=== PATIENT | male | born 1940 | race Caucasian/White ===

== ENCOUNTER 2017-11-07 15:13 | Emergency (ER) | payer MEDICARE ==
[2017-11-07 15:21] VITALS: BP 104/73; PULSE 80; RESP 18; TEMP 96.9
--- NOTE | 2017-11-07 15:39 | ED ---
General Adult HPI - General Chief complaint: Extremity Injury, Lower Stated complaint: Torn toe nail Time Seen by Provider: 11/07/17 15:31 Source: patient, RN notes reviewed Mode of arrival: ambulatory Limitations: no limitations - History of Present Illness Initial comments: Patient's a 76-year-old who presents emergency room today with chief complaint of injury to the right great toe. Patient does admit that he did have psych son was moving a piece of furniture accidentally caught the toe repeated from the nailbed on the medial corner. Patient denies any other pain or injury. He denies any other complaints. States he has very minimal to no pain to the area. - Related Data Home Medications Medication Instructions Recorded Confirmed Diltiazem Cd [Cardizem Cd] 180 mg PO DAILY 05/31/16 05/31/16 Furosemide [Lasix] 20 mg PO WEEKLY 05/31/16 05/31/16 Latanoprost Ophth [Xalatan 0.005%] 1 drops BOTH EYES HS 05/31/16 05/31/16 Spironolactone [Aldactone] 25 mg PO DAILY 05/31/16 05/31/16 Timolol 0.25% Ophth Soln [Timoptic 1 drop BOTH EYES BID 05/31/16 05/31/16 0.25% Ophth Soln] Warfarin Sodium [Coumadin] 5 mg PO DAILY 05/31/16 05/31/16 Warfarin [Coumadin] 2.5 mg PO DAILY 05/31/16 05/31/16 Allergies Allergy/AdvReac Type Severity Reaction Status Date / Time Penicillins Allergy Unknown Verified 11/07/17 15:21 Review of Systems ROS Statement: Those systems with pertinent positive or pertinent negative responses have been documented in the HPI. ROS Other: All systems not noted in ROS Statement are negative. Past Medical History Past Medical History: Atrial Fibrillation History of Any Multi-Drug Resistant Organisms: None Reported Past Surgical History: Hernia Repair Past Psychological History: No Psychological Hx Reported Smoking Status: Never smoker Past Alcohol Use History: None Reported Past Drug Use History: None Reported General Exam - General Exam Comments Initial Comments: General: The patient is awake and alert, in no distress, and does not appear acutely ill. Neck: The neck is supple, there is no tenderness or JVD. Cardiovascular: There is a regular rate and rhythm. No murmur, rub or gallop is appreciated. Respiratory: Lungs are clear to auscultation, respirations are non-labored, breath sounds are equal. No wheezes, stridor, rales, or rhonchi. Musculoskeletal: Full range motion. Sensation intact with pulses equal bilaterally 2+. Strength 5/5. Neurological: A&O x 3. CN II-XII intact, There are no obvious motor or sensory deficits. Coordination appears grossly intact. Speech is normal. Skin: She is referred toe does have nail avulsion on the medial aspect. There is no active bleeding. No tenderness. Psychiatric: Normal mood and affect. Limitations: no limitations Course Vital Signs 11/07/17 15:16 Temperature 96.9 F L Pulse Rate 80 Respiratory 18 Rate Blood Pressure 104/73 O2 Sat by Pulse 97 Oximetry Procedures - Procedures Initial comment: Vision did have his right foot soaked and a soapy foot bath for approximately 15 minutes. Area was cleaned. The toenail medial aspect was pushed underneath into the nailbed. And a bandage placed over top. Patient advised that toenail is likely to fall off over the next week. Advised to watch for any signs of infection return here to the emergency room for any other concerns. Disposition Clinical Impression: Nail avulsion, toe Disposition: HOME SELF-CARE Condition: Good Instructions: Nail Avulsion (ED) Additional Instructions: Please use bandage to keep naill in place when you are putting socks and shoes on. Please beware nail most likely will fall off over the next week. Please watch for any signs of infection which may include increased pain, swelling, redness, fever or chills. Please return to emergency room for any signs of infection or any other concerns. Referrals: Coty Rose MD [Primary Care Provider] - 1-2 days Time of Disposition: 16:11
== END 2017-11-07 16:22 | disposition home or self-care (01) ==
LOC: EC 15:13
DX: S91.201A Unspecified open wound of right great toe with damage to nail, initial encounter (principal); I48.91 Unspecified atrial fibrillation; Z79.01 Long term (current) use of anticoagulants; Z79.899 Other long term (current) drug therapy; Z88.0 Allergy status to penicillin; W22.8XXA Striking against or struck by other objects, initial encounter; Y92.009 Unspecified place in unspecified non-institutional (private) residence as the place of occurrence of the external cause
CPT/HCPCS: 11730; 99283

== ENCOUNTER 2021-05-03 12:18 | Emergency (ER) | payer MEDICARE ==
[2021-05-03 12:22] VITALS: TEMP 97.8
[2021-05-03] MEDS ORDERED: methylPREDNISolone SOD SUCCI 125 MG/2 ML VIAL IV STA (12:50)
[2021-05-03] MEDS ORDERED: IPRATROPIUM-ALBUTEROL 3 ML NEB INHALATION STA (12:50)
--- NOTE | 2021-05-03 12:57 | ED ---
General Adult HPI - General Chief complaint: Shortness of Breath Stated complaint: Cough/SOB Time Seen by Provider: 05/03/21 12:30 Source: patient, RN notes reviewed Mode of arrival: ambulatory Limitations: no limitations - History of Present Illness Initial comments: Patient is a pleasant 80-year-old male presenting to the emergency Department with cough. Onset of symptoms was yesterday. Patient does occasionally get bronchitis. No fevers. No chest pain. Patient does have history of atrial fibrillation. Patient states there is mild associated dyspnea. provides majority of history otherwise. They state mild leg swelling is chronic. P atient denies calf pain. - Related Data Home Medications Medication Instructions Recorded Confirmed Diltiazem Cd [Cardizem Cd] 180 mg PO DAILY 05/31/16 11/07/17 Furosemide [Lasix] 20 mg PO WEEKLY 05/31/16 11/07/17 Latanoprost Ophth [Xalatan 0.005%] 1 drops BOTH EYES HS 05/31/16 11/07/17 Spironolactone [Aldactone] 25 mg PO DAILY 05/31/16 11/07/17 Timolol 0.25% Ophth Soln [Timoptic 1 drop BOTH EYES BID 05/31/16 11/07/17 0.25% Ophth Soln] Warfarin Sodium [Coumadin] 5 mg PO DAILY 05/31/16 11/07/17 Warfarin [Coumadin] 2.5 mg PO DAILY 05/31/16 11/07/17 Previous Rx's Medication Instructions Recorded Albuterol Nebulized [Ventolin 2.5 mg INHALATION QID PRN #125 nebu 05/03/21 Nebulized] predniSONE [Deltasone] 20 mg PO BID #10 tab 05/03/21 Allergies Allergy/AdvReac Type Severity Reaction Status Date / Time levofloxacin [From Levaquin] Allergy Swelling Verified 05/03/21 12:22 Penicillins Allergy Unknown Verified 11/07/17 15:21 Review of Systems ROS Statement: Those systems with pertinent positive or pertinent negative responses have been documented in the HPI. ROS Other: All systems not noted in ROS Statement are negative. Constitutional: Denies: fever Eyes: Denies: eye pain ENT: Denies: ear pain Respiratory: Reports: as per HPI, cough Cardiovascular: Denies: chest pain Endocrine: Denies: fatigue Gastrointestinal: Denies: abdominal pain Genitourinary: Denies: dysuria Musculoskeletal: Denies: back pain Skin: Denies: rash Neurological: Denies: weakness Past Medical History Past Medical History: Atrial Fibrillation, Memory Impairment History of Any Multi-Drug Resistant Organisms: None Reported Past Surgical History: Hernia Repair Past Psychological History: No Psychological Hx Reported Smoking Status: Never smoker Past Alcohol Use History: None Reported Past Drug Use History: None Reported General Exam Limitations: no limitations General appearance: alert, in no apparent distress Head exam: Present: normocephalic Eye exam: Present: normal appearance Neck exam: Present: normal inspection Respiratory exam: Present: wheezes Cardiovascular Exam: Present: irregular rhythm GI/Abdominal exam: Present: soft. Absent: tenderness Extremities exam: Present: pedal edema (+1 bilateral). Absent: calf tenderness Neurological exam: Present: alert Psychiatric exam: Present: normal affect, normal mood Skin exam: Present: normal color Course Vital Signs 05/03/21 05/03/21 05/03/21 12:19 13:50 14:07 Temperature 97.8 F Pulse Rate 91 93 94 Respiratory 20 18 Rate Blood Pressure 125/80 121/89 O2 Sat by Pulse 95 93 L Oximetry 05/03/21 14:17 Temperature Pulse Rate 107 H Respiratory Rate Blood Pressure O2 Sat by Pulse Oximetry EKG Findings - EKG Comments: EKG Findings:: A. fib with a rate of 98. QRS 88. QT 384. QTC 490. Left axis. Normal QRS. Nonspecific ST-T. Medical Decision Making - Medical Decision Making Patient reevaluated and resting comfortably in bed. Lung sounds have improved however there is still minimal wheezing. Patient and family updated on results. Patient states he is feeling better and does request discharge home. They're advised close follow-up and to return if symptoms worsen - Lab Data Result diagrams: 05/03/21 13:45 05/03/21 13:45 Lab Results 05/03/21 05/03/21 05/03/21 Range/Units 13:05 13:45 13:45 WBC 14.7 H (3.8-10.6) k/uL RBC 5.35 (4.30-5.90) m/uL Hgb 17.5 (13.0-17.5) gm/dL Hct 50.9 (39.0-53.0) % MCV 95.0 (80.0-100.0) fL MCH 32.7 (25.0-35.0) pg MCHC 34.4 (31.0-37.0) g/dL RDW 13.0 (11.5-15.5) % Plt Count 156 (150-450) k/uL MPV 7.9 Neutrophils % 86 % Lymphocytes % 8 % Monocytes % 4 % Eosinophils % 1 % Basophils % 1 % Neutrophils # 12.6 H (1.3-7.7) k/uL Lymphocytes # 1.2 (1.0-4.8) k/uL Monocytes # 0.6 (0-1.0) k/uL Eosinophils # 0.2 (0-0.7) k/uL Basophils # 0.1 (0-0.2) k/uL PT 34.7 H (9.0-12.0) sec INR 3.6 H (<1.2) APTT 37.4 H (22.0-30.0) sec D-Dimer (<0.60) mg/L FEU Sodium (137-145) mmol/L Potassium (3.5-5.1) mmol/L Chloride (98-107) mmol/L Carbon Dioxide (22-30) mmol/L Anion Gap mmol/L BUN (9-20) mg/dL Creatinine (0.66-1.25) mg/dL Est GFR (CKD-EPI)AfAm (>60 ml/min/1.73 sqM) Est GFR (CKD-EPI)NonAf (>60 ml/min/1.73 sqM) Glucose (74-99) mg/dL Plasma Lactic Acid Hernan (0.7-2.0) mmol/L Calcium (8.4-10.2) mg/dL Total Bilirubin (0.2-1.3) mg/dL AST (17-59) U/L ALT (4-49) U/L Alkaline Phosphatase (38-126) U/L Troponin I (0.000-0.034) ng/mL NT-Pro-B Natriuret Pep pg/mL Total Protein (6.3-8.2) g/dL Albumin (3.5-5.0) g/dL Coronavirus (PCR) Not Detected (Not Detectd) 05/03/21 05/03/21 05/03/21 Range/Units 13:45 13:45 13:45 WBC (3.8-10.6) k/uL RBC (4.30-5.90) m/uL Hgb (13.0-17.5) gm/dL Hct (39.0-53.0) % MCV (80.0-100.0) fL MCH (25.0-35.0) pg MCHC (31.0-37.0) g/dL RDW (11.5-15.5) % Plt Count (150-450) k/uL MPV Neutrophils % % Lymphocytes % % Monocytes % % Eosinophils % % Basophils % % Neutrophils # (1.3-7.7) k/uL Lymphocytes # (1.0-4.8) k/uL Monocytes # (0-1.0) k/uL Eosinophils # (0-0.7) k/uL Basophils # (0-0.2) k/uL PT (9.0-12.0) sec INR (<1.2) APTT (22.0-30.0) sec D-Dimer (<0.60) mg/L FEU Sodium 140 (137-145) mmol/L Potassium 4.2 (3.5-5.1) mmol/L Chloride 106 (98-107) mmol/L Carbon Dioxide 23 (22-30) mmol/L Anion Gap 11 mmol/L BUN 13 (9-20) mg/dL Creatinine 0.84 (0.66-1.25) mg/dL Est GFR (CKD-EPI)AfAm >90 (>60 ml/min/1.73 sqM) Est GFR (CKD-EPI)NonAf 84 (>60 ml/min/1.73 sqM) Glucose 115 H (74-99) mg/dL Plasma Lactic Acid Hernan 2.3 H* (0.7-2.0) mmol/L Calcium 9.2 (8.4-10.2) mg/dL Total Bilirubin 1.3 (0.2-1.3) mg/dL AST 44 (17-59) U/L ALT 28 (4-49) U/L Alkaline Phosphatase 114 (38-126) U/L Troponin I <0.012 (0.000-0.034) ng/mL NT-Pro-B Natriuret Pep pg/mL Total Protein 7.3 (6.3-8.2) g/dL Albumin 4.5 (3.5-5.0) g/dL Coronavirus (PCR) (Not Detectd) 05/03/21 05/03/21 Range/Units 13:45 13:45 WBC (3.8-10.6) k/uL RBC (4.30-5.90) m/uL Hgb (13.0-17.5) gm/dL Hct (39.0-53.0) % MCV (80.0-100.0) fL MCH (25.0-35.0) pg MCHC (31.0-37.0) g/dL RDW (11.5-15.5) % Plt Count (150-450) k/uL MPV Neutrophils % % Lymphocytes % % Monocytes % % Eosinophils % % Basophils % % Neutrophils # (1.3-7.7) k/uL Lymphocytes # (1.0-4.8) k/uL Monocytes # (0-1.0) k/uL Eosinophils # (0-0.7) k/uL Basophils # (0-0.2) k/uL PT (9.0-12.0) sec INR (<1.2) APTT (22.0-30.0) sec D-Dimer 0.22 (<0.60) mg/L FEU Sodium (137-145) mmol/L Potassium (3.5-5.1) mmol/L Chloride (98-107) mmol/L Carbon Dioxide (22-30) mmol/L Anion Gap mmol/L BUN (9-20) mg/dL Creatinine (0.66-1.25) mg/dL Est GFR (CKD-EPI)AfAm (>60 ml/min/1.73 sqM) Est GFR (CKD-EPI)NonAf (>60 ml/min/1.73 sqM) Glucose (74-99) mg/dL Plasma Lactic Acid Hernan (0.7-2.0) mmol/L Calcium (8.4-10.2) mg/dL Total Bilirubin (0.2-1.3) mg/dL AST (17-59) U/L ALT (4-49) U/L Alkaline Phosphatase (38-126) U/L Troponin I (0.000-0.034) ng/mL NT-Pro-B Natriuret Pep 418 pg/mL Total Protein (6.3-8.2) g/dL Albumin (3.5-5.0) g/dL Coronavirus (PCR) (Not Detectd) - Radiology Data Radiology results: image reviewed (Chest x-ray reveals no acute process) Disposition Clinical Impression: Bronchitis Disposition: HOME SELF-CARE Condition: Stable Instructions (If sedation given, give patient instructions): Bronchospasm (ED) Additional Instructions: Prescription for nebulizer solution and steroids have been sent to pharmacy. Return for fevers, difficulty breathing, worsening symptoms or other concerns. Prescriptions: predniSONE [Deltasone] 20 mg PO BID #10 tab Albuterol Nebulized [Ventolin Nebulized] 2.5 mg INHALATION QID PRN #125 nebu PRN Reason: Dyspnea Is patient prescribed a controlled substance at d/c from ED?: No Referrals: Coty Rose MD [Primary Care Provider] - 1-2 days Time of Disposition: 14:48
--- NOTE | 2021-05-03 13:25 | XR ---
EXAMINATION TYPE: XR chest 2V DATE OF EXAM: 05/03/2021 COMPARISON: NONE HISTORY: Cough. Short of breath. TECHNIQUE: 2 views FINDINGS: There is no heart failure nor confluent pneumonic infiltrate. There is slight coarsening of interstitial markings. There are no hilar masses. Bony thorax is intact. There are chest leads. IMPRESSION: Mild pulmonary fibrosis. No heart failure.
[2021-05-03 13:51] VITALS: RESP 18
[2021-05-03 13:59] LABS: Basophils # (A) 0.1 k/uL (0-0.2); Basophils % (A) 1 %; Eosinophils # (A) 0.2 k/uL (0-0.7); Eosinophils % (A) 1 %; HCT 50.9 % (39.0-53.0); HGB 17.5 gm/dL (13.0-17.5); Lymphocytes # (A) 1.2 k/uL (1.0-4.8); Lymphocytes % (A) 8 %; MCH 32.7 pg (25.0-35.0); MCHC 34.4 g/dL (31.0-37.0); Mean Platelet Volume 7.9; Monocytes # (A) 0.6 k/uL (0-1.0); Monocytes % (A) 4 %; Neutrophils # (A) 12.6 k/uL (1.3-7.7); Neutrophils % (A) 86 %; Platelet Count 156 k/uL (150-450); RBC 5.35 m/uL (4.30-5.90); WBC 14.7 k/uL (3.8-10.6)
[2021-05-03 14:08] LABS: ALT 28 U/L (4-49); African American GFR (CKD) >90 (>60 ml/min/1.73 sqM); Albumin 4.5 g/dL (3.5-5.0); Anion Gap 11 mmol/L; Blood Urea Nitrogen 13 mg/dL (9-20); Calcium 9.2 mg/dL (8.4-10.2); Carbon Dioxide 23 mmol/L (22-30); Chloride 106 mmol/L (98-107); Glucose 115 mg/dL (74-99); Non-African American GFR(CKD) 84 (>60 ml/min/1.73 sqM); Sodium 140 mmol/L (137-145); Total Bilirubin 1.3 mg/dL (0.2-1.3); Total Protein 7.3 g/dL (6.3-8.2)
[2021-05-03 14:15] LABS: INR 3.6 (<1.2); Partial Thromboplastin Time 37.4 sec (22.0-30.0); Prothrombin Time 34.7 sec (9.0-12.0)
[2021-05-03 14:19] LABS: AST 44 U/L (17-59); Alkaline Phosphatase 114 U/L (38-126); Potassium 4.2 mmol/L (3.5-5.1)
[2021-05-03 15:23] VITALS: BP 121/80; PULSE 98
== END 2021-05-03 15:40 | disposition home or self-care (01) ==
LOC: EC 12:18
DX: J40 Bronchitis, not specified as acute or chronic (principal); M79.89 Other specified soft tissue disorders; I48.91 Unspecified atrial fibrillation; Z20.822 Contact with and (suspected) exposure to COVID-19; Z79.01 Long term (current) use of anticoagulants; Z79.52 Long term (current) use of systemic steroids; Z79.899 Other long term (current) drug therapy; Z88.0 Allergy status to penicillin; Z88.1 Allergy status to other antibiotic agents
CPT/HCPCS: 36415; 94640; 93005; 85379; 83880; 80053; 83605; 84484; 85025; 85610; 85730; 87635; 71046; 99285; 96374; J2930

== ENCOUNTER 2023-08-14 23:49 | Inpatient (IN) | payer MEDICARE ==
[2023-08-15] MEDS ORDERED: ACETAMINOPHEN IV (For NPO) 1,000 MG in EMPTY BAG 1 BAG IVPB STA (00:19)
[2023-08-15] MEDS ORDERED: IBUPROFEN IV 800 MG in SODIUM CHLORIDE 0.9% 250 ML IV ONE (00:19)
[2023-08-15] MEDS ORDERED: SODIUM CHLORIDE 0.9% 1,000 ML IV STA (00:19)
[2023-08-15 00:20] LABS: Glucose,Whole Blood 90 mg/dL (70-110)
[2023-08-15] MEDS ORDERED: LORazepam 2 MG/ML INJ IV STA ×2 (00:21→01:17)
--- NOTE | 2023-08-15 01:12 | ED ---
Altered Mental Status HPI - General Chief Complaint: Altered Mental Status Stated Complaint: Fall Time Seen by Provider: 08/15/23 00:17 Source: family, RN notes reviewed, old records reviewed Mode of arrival: wheelchair Limitations: no limitations - History of Present Illness Initial Comments: This is an 82-year-old male to the emergency department for evaluation. Patient presents with his who states he's not acting appropriately currently states he keeps taking shaky difficult to respond episodes. Which she had similar symptoms before when he had coronavirus in the past. Patient's also states that she checked his urine for urinary tract infection was positive earlier today MD Complaint: confusion, weakness -: hour(s) Severity: moderate Consistency of Symptoms: waxing and waning, getting worse Context: history of similar presentation Associated Symptoms: diaphoresis, fever/chills, weakness - Related Data Home Medications Medication Instructions Recorded Confirmed Furosemide [Lasix] 20 mg PO MOTH 05/31/16 08/15/23 Diltiazem Cd [Cardizem CD] 240 mg PO DAILY 12/13/22 08/15/23 Aspirin EC [Ecotrin Low Dose] 81 mg PO DAILY 08/15/23 08/15/23 Cholecalciferol [Vitamin D3 (25 50 mcg PO DAILY 08/15/23 08/15/23 Mcg = 1000 Iu)] Memantine [Namenda] 5 mg PO DAILY 08/15/23 08/15/23 Rosuvastatin Calcium 40 mg PO DAILY 08/15/23 08/15/23 Previous Rx's Medication Instructions Recorded Albuterol Inhaler [Ventolin Hfa 2 puff INHALATION RT-QID PRN #1 12/17/22 Inhaler] each Ascorbic Acid [Vitamin C] 500 mg PO DAILY #30 tab 12/17/22 Cephalexin [Keflex] 500 mg PO Q8HR 1 Days #7 cap 08/20/23 Pantoprazole Sodium [Protonix] 40 mg PO AC-BRKFST 30 Days #30 tab 08/20/23 Warfarin [Coumadin] 2.5 mg PO DAILY 30 Days #30 tab 08/20/23 levETIRAcetam [Keppra] 500 mg PO Q12HR 30 Days #60 tab 08/20/23 Allergies Allergy/AdvReac Type Severity Reaction Status Date / Time levofloxacin [From Levaquin] Allergy Leg Verified 08/15/23 12:05 Swelling Penicillins Allergy Unknown Verified 08/15/23 12:05 Review of Systems ROS Statement: Those systems with pertinent positive or pertinent negative responses have been documented in the HPI. ROS Other: All systems not noted in ROS Statement are negative. Past Medical History Past Medical History: Atrial Fibrillation, Memory Impairment History of Any Multi-Drug Resistant Organisms: None Reported Past Surgical History: Hernia Repair Past Anesthesia/Blood Transfusion Reactions: No Reported Reaction Past Psychological History: No Psychological Hx Reported Smoking Status: Never smoker Past Alcohol Use History: None Reported Past Drug Use History: None Reported General Exam Limitations: no limitations General appearance: alert, in no apparent distress, anxious Head exam: Present: atraumatic, normocephalic, normal inspection Eye exam: Present: normal appearance, PERRL, EOMI. Absent: scleral icterus, conjunctival injection, periorbital swelling ENT exam: Present: normal exam, mucous membranes moist Neck exam: Present: normal inspection. Absent: tenderness, meningismus, lymphadenopathy Respiratory exam: Present: normal lung sounds bilaterally. Absent: respiratory distress, wheezes, rales, rhonchi, stridor Cardiovascular Exam: Present: tachycardia, irregular rhythm, normal heart sounds. Absent: normal rhythm, systolic murmur, diastolic murmur, rubs, gallop, clicks GI/Abdominal exam: Present: soft, normal bowel sounds. Absent: distended, tenderness, guarding, rebound, rigid Extremities exam: Present: normal inspection, full ROM, normal capillary refill. Absent: tenderness, pedal edema, joint swelling, calf tenderness Back exam: Present: normal inspection Neurological exam: Present: alert, oriented X3, CN II-XII intact Psychiatric exam: Present: normal affect, normal mood, agitated, anxious Skin exam: Present: warm, dry, intact, normal color. Absent: rash Course Vital Signs 08/15/23 08/15/23 08/15/23 00:03 00:33 00:56 Temperature 97.8 F Pulse Rate 144 H 146 H 109 H Respiratory 22 22 22 Rate Blood Pressure 115/68 107/80 112/77 O2 Sat by Pulse 98 93 L 93 L Oximetry 08/15/23 08/15/23 01:26 03:48 Temperature Pulse Rate 106 H 94 Respiratory 24 20 Rate Blood Pressure 104/79 110/74 O2 Sat by Pulse 95 96 Oximetry - Reevaluation(s) Reevaluation #1: 08/15/23 04:08 Medical record is reviewed Reevaluation #2: 08/15/23 04:09 Patient symptoms are improving heart rate is improving still having episodes of tremors and shakes Reevaluation #3: 08/15/23 04:09 Patient informed results questions answered at bedside prefers patient admission Reevaluation #4: 08/15/23 04:09 Was pt. sent in by a medical professional or institution ([facility], [facility], urgent care, hospital, or jail...) When possible be specific @ -no Did you speak to anyone other than the patient for history (EMS, parent, family, police, friend...)? What history was obtained from this source @ -no Did you review nursing and triage notes (agree or disagree)? Why? @ -agree Are old charts reviewed (outside hosp., previous admission, EMS record, old EKG, old radiological studies, urgent care reports/EKG's, jail records)? Report findings @ -yes Differential Diagnosis (chest pain, altered mental status, abdominal pain women, abdominal pain men, vaginal bleeding, weakness, fever, dyspnea, syncope, headache, dizziness, GI bleed, back pain, seizure, CVA, palpatations, mental health, musculoskeletal)? @ -prior EKG interpreted by me (3pts min.). @ -yes X-rays interpreted by me (1pt min.). @ -yes CT interpreted by me (1pt min.). @ -no U/S interpreted by me (1pt. min.). @ -no What testing was considered but not performed or refused? (CT, X-rays, U/S, labs)? Why? @ -none What meds were considered but not given or refused? Why? @ -none Did you discuss the management of the patient with other professionals (professionals i.e. [facility], [facility], lab, RT, psych nurse, clinical social worker, arch pad cementer, teacher, interface control officer, home health care case manager)? Give summary @ -no Was smoking cessation discussed for >3mins.? @ -no Was critical care preformed (if so, how long)? @ -no Were there social determinants of health that impacted care today? How? (Ho melessness, low income, unemployed, alcoholism, drug addiction, transportation, low edu. Level, literacy, decrease access to med. care, usp, rehab)? @ -none Was there de-escalation of care discussed even if they declined (Discuss DNR or withdrawal of care, Hospice)? DNR status @ -no What co-morbidities impacted this encounter? (DM, HTN, Smoking, COPD, CAD, Cancer, CVA, ARF, Chemo, Hep., AIDS, mental health diagnosis, sleep apnea, morbid obesity)? @ -none Was patient admitted / discharged? Hospital course, mention meds given and route, prescriptions, significant lab abnormalities, going to OR and other pertinent info. @ - 82-year-old male to the emergency department for evaluation today. Patient presents today for evaluation of altered mental status fever possible urinary tract infection which we will treat, patient is also having CHF and atrial fibrillation with RVR and episodes of tremor. Patient will be admitted for continued supportive care Admitted Undiagnosed new problem with uncertain prognosis? @ -no Drug Therapy requiring intensive monitoring for toxicity (Heparin, Nitro, Insulin, Cardizem)? @ -no Were any procedures done? @ -no Diagnosis/symptom? @ -Fever A. fib with RVR and CHF Acute, or Chronic, or Acute on Chronic? @ -Acute Uncomplicated (without systemic symptoms) or Complicated (systemic symptoms)? @ -Complicated Side effects of treatment? @ -no Exacerbation, Progression, or Severe Exacerbation? @ -exacerbation Poses a threat to life or bodily function? How? (Chest pain, [place], [place], pneumonia, PE, COPD, DKA, ARF, appy, cholecystitis, CVA, Diverticulitis, Homicidal, Suicidal, threat to staff... and all critical care pts) @ -yes significant disease with UTI CHF A. fib with RVR disease Reevaluation #5: 08/15/23 04:09 Differential Altered Mental Status: Hypoglycemia, DKA, hypercapnia, ETOH, overdose, CO poisoning, trauma, myxedema coma, HTN encephalopathy, infection, encephalitis, psychosis, intercranial hemorrhage, hepatic encephalopathy, meningitis, CVA, this is not meant to be an all-inclusive list - Consultations Consultation #1: Spoke with [facility] to agrees to admit this patient Medical Decision Making - Medical Decision Making 82-year-old male to the emergency department for evaluation today. Patient presents today for evaluation of altered mental status fever possible urinary tract infection which we will treat, patient is also having CHF and atrial fibrillation with RVR and episodes of tremor. Patient will be admitted for continued supportive care - Lab Data Result diagrams: 08/20/23 08:03 08/20/23 08:03 Lab Results 08/15/23 08/15/23 08/15/23 Range/Units 00:16 00:26 00:26 WBC 16.4 H (3.8-10.6) k/uL RBC 5.14 (4.30-5.90) m/uL Hgb 17.1 (13.0-17.5) gm/dL Hct 50.5 (39.0-53.0) % MCV 98.3 (80.0-100.0) fL MCH 33.3 (25.0-35.0) pg MCHC 33.9 (31.0-37.0) g/dL RDW 12.9 (11.5-15.5) % Plt Count 215 (150-450) k/uL MPV 9.7 Neutrophils % 67 % Lymphocytes % 21 % Monocytes % 9 % Eosinophils % 1 % Basophils % 1 % Neutrophils # 11.0 H (1.3-7.7) k/uL Lymphocytes # 3.4 (1.0-4.8) k/uL Monocytes # 1.4 H (0-1.0) k/uL Eosinophils # 0.1 (0-0.7) k/uL Basophils # 0.1 (0-0.2) k/uL PT 20.6 H (9.0-12.0) sec INR 2.1 H (<1.2) APTT 28.4 (22.0-30.0) sec Sodium (137-145) mmol/L Potassium (3.5-5.1) mmol/L Chloride (98-107) mmol/L Carbon Dioxide (22-30) mmol/L Anion Gap mmol/L BUN (9-20) mg/dL Creatinine (0.66-1.25) mg/dL Est GFR (CKD-EPI)AfAm (>60 ml/min/1.73 sqM) Est GFR (CKD-EPI)NonAf (>60 ml/min/1.73 sqM) Glucose (74-99) mg/dL POC Glucose (mg/dL) 90 (70-110) mg/dL POC Glu High Worker ID Hock, Kristian Lactic Ac Sepsis Rflx Plasma Lactic Acid Hernan (0.7-2.0) mmol/L Calcium (8.4-10.2) mg/dL Phosphorus (2.5-4.5) mg/dL Magnesium (1.6-2.3) mg/dL Total Bilirubin (0.2-1.3) mg/dL AST (17-59) U/L ALT (4-49) U/L Alkaline Phosphatase (38-126) U/L Troponin I (0.000-0.034) ng/mL NT-Pro-B Natriuret Pep pg/mL Total Protein (6.3-8.2) g/dL Albumin (3.5-5.0) g/dL Influenza Type A (PCR) (Not Detectd) Influenza Type B (PCR) (Not Detectd) RSV (PCR) (Not Detectd) SARS-CoV-2 (PCR) (Not Detectd) 08/15/23 08/15/23 08/15/23 Range/Units 00:26 00:26 00:26 WBC (3.8-10.6) k/uL RBC (4.30-5.90) m/uL Hgb (13.0-17.5) gm/dL Hct (39.0-53.0) % MCV (80.0-100.0) fL MCH (25.0-35.0) pg MCHC (31.0-37.0) g/dL RDW (11.5-15.5) % Plt Count (150-450) k/uL MPV Neutrophils % % Lymphocytes % % Monocytes % % Eosinophils % % Basophils % % Neutrophils # (1.3-7.7) k/uL Lymphocytes # (1.0-4.8) k/uL Monocytes # (0-1.0) k/uL Eosinophils # (0-0.7) k/uL Basophils # (0-0.2) k/uL PT (9.0-12.0) sec INR (<1.2) APTT (22.0-30.0) sec Sodium 143 (137-145) mmol/L Potassium 4.6 (3.5-5.1) mmol/L Chloride 109 H (98-107) mmol/L Carbon Dioxide 19 L (22-30) mmol/L Anion Gap 15 mmol/L BUN 27 H (9-20) mg/dL Creatinine 1.36 H (0.66-1.25) mg/dL Est GFR (CKD-EPI)AfAm 56 (>60 ml/min/1.73 sqM) Est GFR (CKD-EPI)NonAf 49 (>60 ml/min/1.73 sqM) Glucose 94 (74-99) mg/dL POC Glucose (mg/dL) (70-110) mg/dL POC Glu High Worker ID Lactic Ac Sepsis Rflx Plasma Lactic Acid Hernan 3.2 H* (0.7-2.0) mmol/L Calcium 9.5 (8.4-10.2) mg/dL Phosphorus 4.4 (2.5-4.5) mg/dL Magnesium 1.9 (1.6-2.3) mg/dL Total Bilirubin 1.0 (0.2-1.3) mg/dL AST 38 (17-59) U/L ALT 27 (4-49) U/L Alkaline Phosphatase 102 (38-126) U/L Troponin I <0.012 (0.000-0.034) ng/mL NT-Pro-B Natriuret Pep 979 pg/mL Total Protein 7.0 (6.3-8.2) g/dL Albumin 4.5 (3.5-5.0) g/dL Influenza Type A (PCR) (Not Detectd) Influenza Type B (PCR) (Not Detectd) RSV (PCR) (Not Detectd) SARS-CoV-2 (PCR) (Not Detectd) 08/15/23 08/15/23 Range/Units 00:26 02:03 WBC (3.8-10.6) k/uL RBC (4.30-5.90) m/uL Hgb (13.0-17.5) gm/dL Hct (39.0-53.0) % MCV (80.0-100.0) fL MCH (25.0-35.0) pg MCHC (31.0-37.0) g/dL RDW (11.5-15.5) % Plt Count (150-450) k/uL MPV Neutrophils % % Lymphocytes % % Monocytes % % Eosinophils % % Basophils % % Neutrophils # (1.3-7.7) k/uL Lymphocytes # (1.0-4.8) k/uL Monocytes # (0-1.0) k/uL Eosinophils # (0-0.7) k/uL Basophils # (0-0.2) k/uL PT (9.0-12.0) sec INR (<1.2) APTT (22.0-30.0) sec Sodium (137-145) mmol/L Potassium (3.5-5.1) mmol/L Chloride (98-107) mmol/L Carbon Dioxide (22-30) mmol/L Anion Gap mmol/L BUN (9-20) mg/dL Creatinine (0.66-1.25) mg/dL Est GFR (CKD-EPI)AfAm (>60 ml/min/1.73 sqM) Est GFR (CKD-EPI)NonAf (>60 ml/min/1.73 sqM) Glucose (74-99) mg/dL POC Glucose (mg/dL) (70-110) mg/dL POC Glu High Worker ID Lactic Ac Sepsis Rflx Y Plasma Lactic Acid Hernan (0.7-2.0) mmol/L Calcium (8.4-10.2) mg/dL Phosphorus (2.5-4.5) mg/dL Magnesium (1.6-2.3) mg/dL Total Bilirubin (0.2-1.3) mg/dL AST (17-59) U/L ALT (4-49) U/L Alkaline Phosphatase (38-126) U/L Troponin I (0.000-0.034) ng/mL NT-Pro-B Natriuret Pep pg/mL Total Protein (6.3-8.2) g/dL Albumin (3.5-5.0) g/dL Influenza Type A (PCR) Not Detected (Not Detectd) Influenza Type B (PCR) Not Detected (Not Detectd) RSV (PCR) Not Detected (Not Detectd) SARS-CoV-2 (PCR) Not Detected (Not Detectd) - EKG Data -: EKG Interpreted by Me (EKG shows A. fib with RVR 135 QRS 31 QTC 398) - Radiology Data Radiology results: report reviewed (Chest x-rays negative for acute disease), image reviewed Critical Care Time Critical Care Time: Yes Total Critical Care Time: 31 Disposition Clinical Impression: Delirium due to general medical condition, Altered mental status, UTI (urinary tract infection), Fever, Atrial fibrillation with RVR, Acute metabolic encephalopathy Disposition: ADMITTED IP TO THIS HOSP Condition: Fair Is patient prescribed a controlled substance at d/c from ED?: No Time of Disposition: 04:00
[2023-08-15 01:13] LABS: Basophils # (A) 0.1 k/uL (0-0.2); Basophils % (A) 1 %; Eosinophils # (A) 0.1 k/uL (0-0.7); Eosinophils % (A) 1 %; HCT 50.5 % (39.0-53.0); HGB 17.1 gm/dL (13.0-17.5); Lymphocytes # (A) 3.4 k/uL (1.0-4.8); Lymphocytes % (A) 21 %; MCH 33.3 pg (25.0-35.0); MCHC 33.9 g/dL (31.0-37.0); MCV 98.3 fL (80.0-100.0); Mean Platelet Volume 9.7; Monocytes # (A) 1.4 k/uL (0-1.0); Monocytes % (A) 9 %; Neutrophils % (A) 67 %; Platelet Count 215 k/uL (150-450); RBC 5.14 m/uL (4.30-5.90); RDW 12.9 % (11.5-15.5); WBC 16.4 k/uL (3.8-10.6)
[2023-08-15 01:14] LABS: INR 2.1 (<1.2); Partial Thromboplastin Time 28.4 sec (22.0-30.0); Prothrombin Time 20.6 sec (9.0-12.0)
--- NOTE | 2023-08-15 01:34 | XR ---
EXAMINATION TYPE: XR chest 1V portable DATE OF EXAM: 08/15/2023 12:56 AM CLINICAL INDICATION:Male, 82 years old with history of ams; [facility] COMPARISON: Chest radiographs from 01/13/2023 TECHNIQUE: XR chest 1V portable Frontal view of the chest. FINDINGS: Lungs/Pleura: Low lung volumes are present. There is no evidence of pleural effusion, focal consolida tion, or pneumothorax. Pulmonary vascularity: Pulmonary vascular congestion. Heart/mediastinum: Cardiomediastinal silhouette is enlarged and stable. Musculoskeletal: No acute osseous pathology. IMPRESSION: Cardiomegaly and mild pulmonary vascular congestion. Correlate with BNP for congestive heart failure.
[2023-08-15 02:07] LABS: ALT 27 U/L (4-49); AST 38 U/L (17-59); African American GFR (CKD) 56 (>60 ml/min/1.73 sqM); Albumin 4.5 g/dL (3.5-5.0); Alkaline Phosphatase 102 U/L (38-126); Anion Gap 15 mmol/L; Blood Urea Nitrogen 27 mg/dL (9-20); Calcium 9.5 mg/dL (8.4-10.2); Carbon Dioxide 19 mmol/L (22-30); Chloride 109 mmol/L (98-107); Glucose 94 mg/dL (74-99); Magnesium 1.9 mg/dL (1.6-2.3); Non-African American GFR(CKD) 49 (>60 ml/min/1.73 sqM); Phosphorus 4.4 mg/dL (2.5-4.5); Potassium 4.6 mmol/L (3.5-5.1); Sodium 143 mmol/L (137-145)
[2023-08-15 02:14] LABS: NT-Pro-B-Type Natriuretic Pept 979 pg/mL
[2023-08-15] MEDS ORDERED: ONDANSETRON 4 MG/2 ML VIAL IVP PRN (04:01)
[2023-08-15] MEDS ORDERED: IBUPROFEN 400 MG TAB PO PRN (04:01)
[2023-08-15] MEDS ORDERED: NALOXONE 0.4 MG/ML 1 ML VIAL IV PRN (04:01)
[2023-08-15] MEDS ORDERED: MORPHINE SULFATE 4 MG/ML SYRINGE IV PRN (04:01)
[2023-08-15] MEDS ORDERED: ACETAMINOPHEN TAB 325 MG TAB PO PRN (04:01)
[2023-08-15] MEDS ORDERED: SODIUM CHLORIDE 0.9% 1,000 ML IV SCH (04:15)
--- NOTE | 2023-08-15 08:52 | P.HPIM ---
History of Present Illness H&P Date: 08/15/23 Chief Complaint: Confusion * 82-year-old gentleman with past medical history significant for atrial fibrillation on anticoagulation with Coumadin, memory impairment history of dementia presents to the emergency department with episode of worsening mentation. Patient was accompanied with his who assisted with history taking. Patient has been having chills which started recently. Per this symptom was similar to when patient had covert in the past. * Workup initiated in ER included hematology which were WBC of 16.4, bilirubin 17.1 platelet 2:15. INR of 2.1. Serum chemistry showed sodium 143 potassium 4.6 even 27 creatinine 1.36 * Patient tested negative for influenza and Covid * Chest x-ray obtained in ER showed cardiomegaly with pulmonary vascular congestion * EKG obtained in ER showed atrial fibrillation with rapid monitor response heart rate in 135 * Patient admitted to medical floor been treated for encephalopathy secondary to UTI and A. fib RVR * On further inquiry per on the last 48 hours he has become progressively weak. Patient does have lower extremity weakness with his legs giving up. Ever since Covid he has gotten progressively weak he does have baseline confusion however this was worse REVIEW OF SYSTEMS: Confusion, weakness CONSTITUTIONAL: No fever, no malaise, no fatigue. HEENT: No recent visual problems or hearing problems. Denied any sore throat. CARDIOVASCULAR: No chest pain, orthopnea, PND, no palpitations, no syncope. PULMONARY: No shortness of breath, no cough, no hemoptysis. GASTROINTESTINAL: No diarrhea, no nausea, no vomiting, no abdominal pain. NEUROLOGICAL: No headaches, weakness present MUSCULOSKELETAL/RHEUMATOLOGICAL: Denies any joint pain, swelling, or any muscle pain. ENDOCRINE: Denies any polyuria or polydipsia. PHYSICAL EXAMINATION: GENERAL: The patient is alert and oriented x1 , ill appearance HEENT: Pupils are round and equally reacting to light. EOMI. CARDIOVASCULAR: Irregular rhythm tachycardia noted PULMONARY: Chest is clear to auscultation, no wheezing or crackles. ABDOMEN: Soft, nontender, nondistended, normoactive bowel sounds. No palpable organomegaly. MUSCULOSKELETAL: No joint swelling or deformity. EXTREMITIES: No cyanosis, clubbing, or pedal edema. NEUROLOGICAL: Gross neurological examination did not reveal any focal deficits. SKIN: No rashes. Past Medical History Past Medical History: Atrial Fibrillation, Hyperlipidemia, Memory Impairment Additional Past Medical History / Comment(s): bronchitis, falls History of Any Multi-Drug Resistant Organisms: None Reported Past Surgical History: Hernia Repair Past Anesthesia/Blood Transfusion Reactions: No Reported Reaction Past Psychological History: No Psychological Hx Reported Smoking Status: Never smoker Past Alcohol Use History: None Reported Past Drug Use History: None Reported Medications and Allergies Home Medications Medication Instructions Recorded Confirmed Type Furosemide [Lasix] 20 mg PO MOTH 05/31/16 08/15/23 History Diltiazem Cd [Cardizem CD] 240 mg PO DAILY 12/13/22 08/15/23 History Albuterol Inhaler [Ventolin Hfa 2 puff INHALATION RT-QID PRN #1 12/17/22 08/15/23 Rx Inhaler] each Ascorbic Acid [Vitamin C] 500 mg PO DAILY #30 tab 12/17/22 08/15/23 Rx Aspirin EC [Ecotrin Low Dose] 81 mg PO DAILY 08/15/23 08/15/23 History Cholecalciferol [Vitamin D3 (25 50 mcg PO DAILY 08/15/23 08/15/23 History Mcg = 1000 Iu)] Memantine [Namenda] 5 mg PO DAILY 08/15/23 08/15/23 History Rosuvastatin Calcium 40 mg PO DAILY 08/15/23 08/15/23 History Warfarin [Coumadin] 2.5 mg PO SUTUTH 08/15/23 08/15/23 History Warfarin [Coumadin] 3.75 mg PO MOWEFRSA 08/15/23 08/15/23 History Allergies Allergy/AdvReac Type Severity Reaction Status Date / Time levofloxacin [From Levaquin] Allergy Leg Verified 08/15/23 12:05 Swelling Penicillins Allergy Unknown Verified 08/15/23 12:05 Physical Exam Vitals: Vital Signs Temp Pulse Pulse Resp BP BP Pulse Ox 08/15/23 05:30 98.1 F 97 18 133/94 99 08/15/23 03:48 94 20 110/74 96 08/15/23 01:26 106 H 24 104/79 95 08/15/23 00:56 109 H 22 112/77 93 L 08/15/23 00:33 146 H 22 107/80 93 L 08/15/23 00:03 97.8 F 144 H 22 115/68 98 Intake and Output 08/14/23 08/15/23 08/15/23 22:59 06:59 14:59 Other: Weight 104.326 kg Results CBC & Chem 7: 08/15/23 00:26 08/15/23 00:26 Labs: Abnormal Lab Results - Last 24 Hours (Table) 08/15/23 08/15/23 08/15/23 Range/Units 00:26 00:26 00:26 WBC 16.4 H (3.8-10.6) k/uL Neutrophils # 11.0 H (1.3-7.7) k/uL Monocytes # 1.4 H (0-1.0) k/uL PT 20.6 H (9.0-12.0) sec INR 2.1 H (<1.2) Chloride 109 H (98-107) mmol/L Carbon Dioxide 19 L (22-30) mmol/L BUN 27 H (9-20) mg/dL Creatinine 1.36 H (0.66-1.25) mg/dL Plasma Lactic Acid Hernan (0.7-2.0) mmol/L 08/15/23 Range/Units 00:26 WBC (3.8-10.6) k/uL Neutrophils # (1.3-7.7) k/uL Monocytes # (0-1.0) k/uL PT (9.0-12.0) sec INR (<1.2) Chloride (98-107) mmol/L Carbon Dioxide (22-30) mmol/L BUN (9-20) mg/dL Creatinine (0.66-1.25) mg/dL Plasma Lactic Acid Hernan 3.2 H* (0.7-2.0) mmol/L Thrombosis Risk Factor Assmnt - Choose All That Apply Any of the Below Risk Factors Present?: Yes Each Factor Represents 1 point: Medical pt on bed rest, Obesity (BMI >25) Other Risk Factors: Yes Each Risk Factor Represents 2 Points: Patient confined to bed Each Risk Factor Represents 3 Points: Age 75 years or older Other congenital or acquired thrombophilia - If yes, enter type in comment: No Thrombosis Risk Factor Assessment Total Risk Factor Score: 7 Thrombosis Risk Factor Assessment Level: High Risk Assessment and Plan Assessment: Assessment and plan * Acute metabolic encephalopathy * History of dementia with worsening mentation * Urinary tract infection * Sepsis secondary to UTI * Chronic atrial fib pressures rapid ventricular response * History of congestive heart failure diastolic dysfunction * In regards to urinary tract infection, follow-up on urine cultures, continue patient on IV Rocephin * In regards to history of dementia with worsening mentation, continue to reorient maintain delirium precautions. Continue memantine * In regards to history of atrial fibrillation continue patient on Coumadin INR therapeutic, consult cardiology, fluid overload noted on chest x-ray caution with excessive fluid * In regards to history of CHF, echocardiogram ordered, Lasix placed on hold initially secondary to concern for sepsis from UTI. Will resume a strong fluid status * CODE STATUS is no code
[2023-08-15] MEDS: PANTOPRAZOLE 40 MG/10 ML VIAL IV SCH (09:05)
[2023-08-15 09:53] LABS: Appearance,Urine Clear (Clear); Bilirubin,Urine Negative (Negative); Blood,Urine Small (Negative); Color,Urine Yellow; Glucose,Urine (UA) Negative (Negative); Hyaline Casts,Urine 3 /lpf (0-2); Ketones,Urine Trace (Negative); Leukocyte Esterase,Urine Trace (Negative); Mucus,Urine Rare /hpf; Nitrite,Urine Negative (Negative); PH, Urine 5.5 (5.0-8.0); Protein,Urine 1+ (Negative); RBC,Urine 13 /hpf (0-5); Specific Gravity,Urine 1.027 (1.001-1.035); Urobilinogen,Urine <2.0 mg/dL (<2.0); WBC,Urine 24 /hpf (0-5)
[2023-08-15] MEDS ORDERED: ATORVASTATIN 40 MG TAB PO SCH (11:15)
--- NOTE | 2023-08-15 11:16 | P.CRDCN ---
History of Present Illness History of present illness: HISTORY OF PRESENT ILLNESS: This is a 82-year-old male with a past medical history significant for congestive heart failure, atrial fibrillation, hypertension, valvular heart disease, and hyperlipidemia. Patient follows in the office with Dr. De Paz. We have been asked to see the patient in consultation for John gutierres with RVR. Patient examined at the bedside. Patient is alert and oriented 1. His is at the bedside and providing the majority of the history. He was brought to the hospital for worsening mental status along with "shaking" of his extremities at home. He is being treated for urinary tract infection and sepsis. EKG on admission revealed atrial fibrillation with RVR. Patient remains in atrial fibrillation at the time of examination with a heart rate in the 80s. His home medications have not been resumed at the time of examination. * EKG reveals atrial fibrillation with RVR * Chest xray cardiomegaly and mild pulmonary vascular congestion * Current home cardiac medications include Lasix 20 mg Wednesday, Cardizem 240 mg daily, and warfarin 2.5 mg daily, and rosuvastatin 40 mg at night * Most recent echocardiogram obtained in June 2022 revealed ejection fraction 55%, [id number] MR, moderate LVH, mild to moderate TR, moderate AR, * Patient with Lexiscan stress test in March 2023 which was negative for ischemia REVIEW OF SYSTEMS: At the time of my exam: Unable to obtain thorough review of systems secondary to altered mental status PHYSICAL EXAM: VITAL SIGNS: Reviewed. GENERAL: Well-developed in no acute distress. HEENT: Head is normocephalic. Pupils are equal, round. Sclerae anicteric. Mucous membranes of the mouth are moist. Neck supple. No JVD or thyromegaly LUNGS: Respirations even and unlabored. Lungs essentially clear to auscultation bilaterally. HEART: Irregular rate and rhythm. S1 and S2 heard. Systolic murmur noted ABDOMEN: Soft. Nondistended. Nontender. EXTREMITIES: Normal range of motion. No clubbing or cyanosis. Peripheral pulses intact. No lower extremity edema NEUROLOGIC: Lethargic ASSESSMENT: Altered mental status Urinary tract infection Sepsis Persistent atrial fibrillation with RVR, currently rate controlled Chronic heart failure with preserved ejection fraction, currently euvolemic Valvular heart disease Hypertension Hyperlipidemia PLAN: 2-D echo has been ordered. Await results Continue telemetry monitoring Resume home cardiac medications Patient is currently rate controlled at the time of examination. He has yet to receive his morning medications. Patient is currently prescribed oral Cardizem on an outpatient basis. If patient develops issues with RVR again, we will add beta korin to his medication regimen Further recommendations pending patient's course Nurse practitioner note has been reviewed by physician. Signing provider agrees with the documented findings, assessment, and plan of care. Past Medical History Past Medical History: Atrial Fibrillation, Hyperlipidemia, Memory Impairment Additional Past Medical History / Comment(s): bronchitis, falls History of Any Multi-Drug Resistant Organisms: None Reported Past Surgical History: Hernia Repair Past Anesthesia/Blood Transfusion Reactions: No Reported Reaction Past Psychological History: No Psychological Hx Reported Smoking Status: Never smoker Past Alcohol Use History: None Reported Past Drug Use History: None Reported Medications and Allergies Home Medications Medication Instructions Recorded Confirmed Type Furosemide [Lasix] 20 mg PO MOWEFR 05/31/16 08/15/23 History Atorvastatin [Lipitor] 40 mg PO DAILY 12/13/22 08/15/23 History Diltiazem Cd [Cardizem CD] 240 mg PO DAILY 12/13/22 08/15/23 History Albuterol Inhaler [Ventolin Hfa 2 puff INHALATION RT-QID PRN #1 12/17/22 08/15/23 Rx Inhaler] each Ascorbic Acid [Vitamin C] 500 mg PO DAILY #30 tab 12/17/22 08/15/23 Rx Cholecalciferol [Vitamin D3 (25 50 mcg PO DAILY #30 tab 12/17/22 08/15/23 Rx Mcg = 1000 Iu)] Memantine [Namenda] 5 mg PO BID #60 tab 12/17/22 08/15/23 Rx Pantoprazole [Protonix] 40 mg PO AC-BRKFST #30 tab 12/17/22 08/15/23 Rx QUEtiapine [SEROquel] 25 mg PO DAILY PRN #20 tab 12/17/22 08/15/23 Rx QUEtiapine [SEROquel] 50 mg PO HS #30 tab 12/17/22 08/15/23 Rx Warfarin [Coumadin] 2.5 mg PO DAILY@1800 #30 12/17/22 08/15/23 Rx Zinc Sulfate [Orazinc] 220 mg PO DAILY #30 cap 12/17/22 08/15/23 Rx Rosuvastatin Calcium 40 mg PO DAILY 08/15/23 08/15/23 History Allergies Allergy/AdvReac Type Severity Reaction Status Date / [facility] Allergy Leg Verified 08/15/23 00:05 Swelling Penicillins Allergy Unknown Verified 08/15/23 00:05 Physical Exam Vitals: Vital Signs Temp Pulse Pulse Resp BP BP Pulse Ox 08/15/23 09:27 2 L 08/15/23 09:25 97.5 F L 89 22 131/78 98 08/15/23 05:30 98.1 F 97 18 133/94 99 08/15/23 03:48 94 20 110/74 96 08/15/23 01:26 106 H 24 104/79 95 08/15/23 00:56 109 H 22 112/77 93 L 08/15/23 00:33 146 H 22 107/80 93 L 08/15/23 00:03 97.8 F 144 H 22 115/68 98 Intake and Output 08/14/23 08/15/23 08/15/23 22:59 06:59 14:59 Intake Total 20 Output Total 400 Balance -380 Intake: IV 20 Invasive Line 1 10 Invasive Line 2 10 Output: Urine 400 Straight 400 Other: Voiding Method External Catheter Weight 104.326 kg Results 08/15/23 00:26 08/15/23 00:26 Cardiac Enzymes 08/15/23 08/15/23 08/15/23 Range/Units 00:26 00:26 05:38 AST 38 (17-59) U/L Troponin I <0.012 <0.012 (0.000-0.034) ng/mL Coagulation 08/15/23 Range/Units 00:26 PT 20.6 H (9.0-12.0) sec APTT 28.4 (22.0-30.0) sec CBC 08/15/23 Range/Units 00:26 WBC 16.4 H (3.8-10.6) k/uL RBC 5.14 (4.30-5.90) m/uL Hgb 17.1 (13.0-17.5) gm/dL Hct 50.5 (39.0-53.0) % Plt Count 215 (150-450) k/uL Comprehensive Metabolic Panel 08/15/23 Range/Units 00:26 Sodium 143 (137-145) mmol/L Potassium 4.6 (3.5-5.1) mmol/L Chloride 109 H (98-107) mmol/L Carbon Dioxide 19 L (22-30) mmol/L BUN 27 H (9-20) mg/dL Creatinine 1.36 H (0.66-1.25) mg/dL Glucose 94 (74-99) mg/dL Calcium 9.5 (8.4-10.2) mg/dL AST 38 (17-59) U/L ALT 27 (4-49) U/L Alkaline Phosphatase 102 (38-126) U/L Total Protein 7.0 (6.3-8.2) g/dL Albumin 4.5 (3.5-5.0) g/dL Current Medications Generic Name Dose Route Start Last Admin Trade Name Freq PRN Reason Stop Dose Admin Acetaminophen 650 mg 08/15/23 04:01 Acetaminophen Tab 325 Mg Tab PO Q6HR PRN Mild Pain or Fever > 100.5 Atorvastatin Calcium 40 mg 08/15/23 11:15 Atorvastatin 40 Mg Tab PO DAILY YOEL Diltiazem HCl 240 mg 08/15/23 11:15 Diltiazem Cd 240 Mg Cap.Er.24h PO DAILY YOEL Sodium Chloride 1,000 mls @ 50 mls/hr 08/15/23 04:15 08/15/23 05:44 Saline 0.9% IV 08/15/23 14:16 130 mls/hr .Q20H YOEL Administration Ceftriaxone Sodium 2 gm/ 50 mls @ 100 mls/hr 08/15/23 21:00 Sodium Chloride IVPB HS [facility] Protocol Ibuprofen 400 mg 08/15/23 04:01 Ibuprofen 400 Mg Tab PO Q6HR PRN Mild Pain or Fever > 100.5 Morphine Sulfate 4 mg 08/15/23 04:01 Morphine Sulfate 4 Mg/Ml Syringe IV Q4HR PRN Severe Pain (Scale 7 to 10) Naloxone HCl 0.2 mg 08/15/23 04:01 Naloxone 0.4 Mg/Ml 1 Ml Vial IV Q2M PRN Opioid Reversal Non-Formulary Medication 40 mg 08/15/23 11:15 Rosuvastatin Calcium [Rosuvastatin Calcium] PO DAILY [facility] Ondansetron HCl 4 mg 08/15/23 04:01 Ondansetron 4 Mg/2 Ml Vial IVP Q8HR PRN Nausea And Vomiting Pantoprazole Sodium 40 mg 08/15/23 09:00 08/15/23 09:05 Pantoprazole 40 Mg/10 Ml Vial IV 40 mg DAILY YOEL Administration Warfarin Sodium 2.5 mg 08/15/23 18:00 Warfarin 2.5 Mg Tab PO DAILY@1800 [facility] Protocol Intake and Output 08/14/23 08/15/23 08/15/23 22:59 06:59 14:59 Intake Total 20 Output Total 400 Balance -380 Intake: IV 20 Invasive Line 1 10 Invasive Line 2 10 Output: Urine 400 Straight 400 Other: Voiding Method External Catheter Weight 104.326 kg 08/15/23 00:26 08/15/23 00:26
[2023-08-15] MEDS: DILTIAZEM CD 240 MG CAP.ER.24H PO SCH (12:38)
[2023-08-15] MEDS: ATORVASTATIN 80 MG TAB PO SCH (12:38)
[2023-08-15] MEDS ORDERED: ALBUTEROL NEBULIZED 2.5 MG/3 ML INHALATION PRN (12:54)
[2023-08-15] MEDS: ASCORBIC ACID 500 MG TAB PO SCH (15:40)
[2023-08-15] MEDS: MEMANTINE 5 MG TAB PO SCH (15:40)
[2023-08-15] MEDS: CHOLECALCIFEROL 25 MCG (1000 IU) TABLET PO SCH (15:40)
[2023-08-15] MEDS ORDERED: MORPHINE SULFATE 2 MG/ML SYRINGE IV PRN (17:58)
[2023-08-15] MEDS ORDERED: WARFARIN 3 MG TAB PO ONE (18:00)
[2023-08-15] MEDS: PROPRANOLOL 20 MG TAB PO SCH (18:56)
[2023-08-16] MEDS: PANTOPRAZOLE 40 MG/10 ML VIAL IV SCH (08:35)
[2023-08-16] MEDS: ASCORBIC ACID 500 MG TAB PO SCH (08:35)
[2023-08-16] MEDS: DILTIAZEM CD 240 MG CAP.ER.24H PO SCH (08:35)
[2023-08-16] MEDS: CHOLECALCIFEROL 25 MCG (1000 IU) TABLET PO SCH (08:35)
[2023-08-16] MEDS: ASPIRIN 81 MG PO SCH (08:35)
[2023-08-16] MEDS: MEMANTINE 5 MG TAB PO SCH (08:35)
[2023-08-16] MEDS: ATORVASTATIN 80 MG TAB PO SCH (08:35)
[2023-08-16] MEDS: PROPRANOLOL 20 MG TAB PO SCH (08:35)
[2023-08-16] MEDS ORDERED: levETIRAcetam IV 500 MG/5 ML VIAL IVP STA (11:11)
[2023-08-16] MEDS ORDERED: LORazepam 2 MG/ML INJ IV STA (11:11)
--- NOTE | 2023-08-16 11:31 | P.PN ---
Subjective Progress Note Date: 08/16/23 * 82-year-old gentleman with past medical history significant for atrial fibrillation on anticoagulation with Coumadin, memory impairment history of dementia presents to the emergency department with episode of worsening mentation. Patient was accompanied with his who assisted with history taking. Patient has been having chills which started recently. Per this symptom was similar to when patient had covert in the past. * Workup initiated in ER included hematology which were WBC of 16.4, bilirubin 17.1 platelet 2:15. INR of 2.1. Serum chemistry showed sodium 143 potassium 4.6 even 27 creatinine 1.36 * Patient tested negative for influenza and Covid * Chest x-ray obtained in ER showed cardiomegaly with pulmonary vascular congestion * EKG obtained in ER showed atrial fibrillation with rapid monitor response heart rate in 135 * Patient admitted to medical floor been treated for encephalopathy secondary to UTI and A. fib RVR * On further inquiry per on the last 48 hours he has become progressively weak. Patient does have lower extremity weakness with his legs giving up. Ever since Covid he has gotten progressively weak he does have baseline confusion however this was worse * 08/16/23: Patient seen and evaluated bedside, patient is on room air at this point. Heart rate is better controlled. Patient continues to have nonfocal jerky movement, however during these episodes patient is alert and talking. These movements have gotten worse over the last 24 hours. We will appreciate input from neurology, EEG and MRI brain ordered. Echocardiogram pending, serum chemistry and CBC pending we will review and take appropriate steps Objective - Vital Signs Vital signs: Vital Signs Temp 97.8 F 08/16/23 08:30 Pulse 76 08/16/23 08:30 Resp 17 08/16/23 08:30 BP 115/68 08/16/23 08:30 Pulse Ox 93 L 08/16/23 08:30 FiO2 Intake & Output 08/15/23 08/16/23 08/16/23 18:59 06:59 18:59 Intake Total 70 240 Output Total 800 521 Balance -730 -521 240 Intake: IV 20 Invasive Line 1 10 Invasive Line 2 10 Intake, IV Titration 50 Amount cefTRIAXone 2 gm In 50 Sodium Chloride 0.9% 50 ml @ 100 mls/hr IVPB HS [facility] Rx#:[id number] Oral 240 Output: Urine 800 325 Straight 800 Post Void Residual 196 Other: Voiding Method External Catheter Indwelling Catheter Indwelling Catheter - Exam PHYSICAL EXAMINATION: GENERAL: The patient is alert and oriented x1 , ill appearance HEENT: Pupils are round and equally reacting to light. CARDIOVASCULAR: Irregular rhythm , rate controlled PULMONARY: Chest is clear to auscultation, no wheezing or crackles. ABDOMEN: Soft, nontender, nondistended, normoactive bowel sounds. No palpable organomegaly. MUSCULOSKELETAL: No joint swelling or deformity. EXTREMITIES: No cyanosis, clubbing, or pedal edema. NEUROLOGICAL: Gross neurological examination did not reveal any focal deficits. Does have intermittent jerky movements, no rigidity. Motor strength is 4 x 5 bilateral upper and lower extremity - Labs CBC & Chem 7: 08/15/23 00:26 08/15/23 00:26 Assessment and Plan Assessment: Assessment and plan * Acute metabolic encephalopathy * History of dementia with worsening mentation * Myoclonic jerking movement new onset * Urinary tract infection * Sepsis secondary to UTI * Chronic atrial fib pressures rapid ventricular response * History of congestive heart failure diastolic dysfunction * In regards to urinary tract infection, follow-up on urine cultures, continue patient on IV Rocephin * In regards to history of dementia with worsening mentation, continue to reorient maintain delirium precautions. Continue memantine. Neurology consulted * In regards to history of atrial fibrillation continue patient on Coumadin INR therapeutic, consult cardiology, fluid overload noted on chest x-ray caution with excessive fluid * In regards to history of CHF, echocardiogram ordered, Lasix placed on hold initially secondary to concern for sepsis from UTI. Caution with overhydration * CODE STATUS is no code
--- NOTE | 2023-08-16 12:18 | P.CNNES ---
History of Present Illness Consult date: 08/16/23 Requesting physician: Saleem Bell Reason for Consult: resting tremor for over 12 weeks History of Present Illness: This is an 82-year-old gentleman with history of advanced dementia, atrial fibrillation on Coumadin, COIVD-19 who presented to the emergency department because of episode of worsening mentation. History is obtained from patient's and medical record. Neurology is consulted because of resting tremor more than 12 weeks. Per the primary team the stated the patient has been having chills with chart recently and she stated it was similar when he had COVID-19 infection in the past. Seems the patient has been becoming more progressively weak in his legs been given out and ever since he had covert in the past he gotten progressively weaker and he has baseline confusion but is seems worse. Then patient was at bedside and she stated that the patient had the whole body jerks which started this past Wednesday and been having multiple episodes daily. She stated that the he had similar presentation in December 2022 when he had COVID-19 and at that time it lasted for several days then resolved. He denied of the patient had any history of seizures. denies the patient has any resting tremors. Note upon reviewing medical record the patient was a valid by Dr. Coronel, neuro-hospitalist on 12/16/2022 and he stated that the patient's altered mental status was likely due to acute COVID-19 infection and has advanced dementia. At that time patient had an EEG which shows mild to moderate encephalopathy and there is frequent myoclonic jerks noted during the study which were not clearly associated with epileptiform activity and no seizures were recorded. Please refer to his note for further details. Some of the workup during his hospital visit consisted of: Initial white blood cells 16.4 thousand. Creatinine is 1.36, plasma attic acid venous 3.2. Initial serum glucose is 94, AST ALT, calcium, phosphorus and magnesium are within normal limits. Also sewing is within normal limits next Influenza A/B, RSV, SARS Covid PCR was not detected Review of Systems The positive and negative as per HPI. Past Medical History Past Medical History: Atrial Fibrillation, Hyperlipidemia, Memory Impairment Additional Past Medical History / Comment(s): bronchitis, falls History of Any Multi-Drug Resistant Organisms: None Reported Past Surgical History: Hernia Repair Past Anesthesia/Blood Transfusion Reactions: No Reported Reaction Past Psychological History: No Psychological Hx Reported Smoking Status: Never smoker Past Alcohol Use History: None Reported Past Drug Use History: None Reported Medications and Allergies Home Medications Medication Instructions Recorded Confirmed Type Furosemide [Lasix] 20 mg PO MOTH 05/31/16 08/15/23 History Diltiazem Cd [Cardizem CD] 240 mg PO DAILY 12/13/22 08/15/23 History Albuterol Inhaler [Ventolin Hfa 2 puff INHALATION RT-QID PRN #1 12/17/22 08/15/23 Rx Inhaler] each Ascorbic Acid [Vitamin C] 500 mg PO DAILY #30 tab 12/17/22 08/15/23 Rx Aspirin EC [Ecotrin Low Dose] 81 mg PO DAILY 08/15/23 08/15/23 History Cholecalciferol [Vitamin D3 (25 50 mcg PO DAILY 08/15/23 08/15/23 History Mcg = 1000 Iu)] Memantine [Namenda] 5 mg PO DAILY 08/15/23 08/15/23 History Rosuvastatin Calcium 40 mg PO DAILY 08/15/23 08/15/23 History Warfarin [Coumadin] 2.5 mg PO SUTUTH 08/15/23 08/15/23 History Warfarin [Coumadin] 3.75 mg PO MOWEFRSA 08/15/23 08/15/23 History Allergies Allergy/AdvReac Type Severity Reaction Status Date / Time levofloxacin [From Levaquin] Allergy Leg Verified 08/15/23 12:05 Swelling Penicillins Allergy Unknown Verified 08/15/23 12:05 Physical Examination - Vital Signs Vital Signs: Vital Signs Temp Pulse Resp BP Pulse Ox 08/16/23 08:30 97.8 F 76 17 115/68 93 L 08/16/23 07:49 91 L 08/16/23 06:43 97.8 F 88 19 109/61 96 08/15/23 23:24 98.0 F 92 19 102/59 95 08/15/23 20:00 98.0 F 81 21 99/64 92 L 08/15/23 15:19 97.5 F L 96 20 116/76 98 08/15/23 12:19 97.8 F 79 20 130/78 Intake and Output 08/15/23 08/16/23 08/16/23 22:59 06:59 14:59 Intake Total 50 240 Output Total 400 521 Balance -350 -521 240 Intake: Intake, IV Titration 50 Amount cefTRIAXone 2 gm In 50 Sodium Chloride 0.9% 50 ml @ 100 mls/hr IVPB [facility] Rx#:[id number] Oral 240 Output: Urine 400 325 Straight 400 Post Void Residual 196 Other: Voiding Method External Catheter Indwelling Catheter Indwelling Catheter GENERAL: The patient is lying in bed and is not in acute distress. NEUROLOGICAL: Limited because of his condition. Patient had the multiple episodes of body jerks including the head that are brief but he's having repeated episodes. Patient is awake alert oriented to self he stated he was in the hospital. He named objects correctly such as pen and watch. He is following simple commands. Language is limited especially that he kept on having these episodes Pupils are round equal reactive to light. The pupils are round 3 mm bilaterally. No facial weakness. He was able to briefly lift up bilateral upper extremities as well as lower but individual muscle strength was hard to assess because of his overall condition. Results - Laboratory Findings CBC and BMP: 08/15/23 00:26 08/15/23 00:26 Abnormal Lab Findings: Abnormal Labs 08/15/23 08/15/23 08/15/23 00:26 00:26 00:26 WBC 16.4 H Neutrophils # 11.0 H Monocytes # 1.4 H PT 20.6 H INR 2.1 H Chloride 109 H Carbon Dioxide 19 L BUN 27 H Creatinine 1.36 H Plasma Lactic Acid Hernan Urine Protein Urine Ketones Urine Blood Ur Leukocyte Esterase Urine RBC Urine WBC Hyaline Casts Urine Mucus 08/15/23 08/15/23 00:26 09:17 WBC Neutrophils # Monocytes # PT INR Chloride Carbon Dioxide BUN Creatinine Plasma Lactic Acid Hernan 3.2 H* Urine Protein 1+ H Urine Ketones Trace H Urine Blood Small H Ur Leukocyte Esterase Trace H Urine RBC 13 H Urine WBC 24 H Hyaline Casts 3 H Urine Mucus Rare H Assessment and Plan Assessment: This is an 82-year-old gentleman with history of advanced dementia, prior COVID-19 infection who presents because of worsening altered mental status. Per the patient's he is having multiple episodes of body jerks since this past Wednesday and he had similar episodes in December 2022 which lasted several days to the resolved. At that time he had an EEG and was reported as no underlying seizure or clear epileptiform discharges. Repeated episode of myoclonic jerks rule out underlying seizure versus metabolic Advanced dementia and has underlying history of this History of atrial fibrillation on coumadin History of COVID-19 infection Plan: Seems that the patient had a prior EEG on nd was read by Dr. Barraza and he stated that the no clear epileptiform discharges or seizure I ordered a routine EEG I ordered the 2 mg Ativan once. Then loaded the patient with Keppra thousand milligram once the start the patient on Keppra 500 twice a day. We'll see what the EEG shows and that if no seizures or discharges then removed antiepileptic d rugs. Ordered ammonia level, repeat TSH. If possible to pursue with MRI Brain w/o. Will defer the rest of medical management to the primary team. The plan was discussed with the patient's was at bedside as well as the primary attending. Thank you for the consultation. Time with Patient: Greater than 30
[2023-08-16 13:42] LABS: Basophils % (A) 0 %; Eosinophils # (A) 0.1 k/uL (0-0.7); Eosinophils % (A) 1 %; HCT 44.7 % (39.0-53.0); HGB 14.9 gm/dL (13.0-17.5); Lymphocytes # (A) 1.6 k/uL (1.0-4.8); Lymphocytes % (A) 11 %; MCH 32.9 pg (25.0-35.0); MCHC 33.2 g/dL (31.0-37.0); Mean Platelet Volume 9.5; Monocytes # (A) 0.9 k/uL (0-1.0); Monocytes % (A) 6 %; Neutrophils # (A) 11.3 k/uL (1.3-7.7); Neutrophils % (A) 79 %; Platelet Count 131 k/uL (150-450); RBC 4.52 m/uL (4.30-5.90); RDW 13.4 % (11.5-15.5); WBC 14.3 k/uL (3.8-10.6)
[2023-08-16 13:49] LABS: INR 3.1 (<1.2); Prothrombin Time 30.1 sec (9.0-12.0)
[2023-08-16 14:15] LABS: ALT 38 U/L (4-49); AST 171 U/L (17-59); African American GFR (CKD) 80 (>60 ml/min/1.73 sqM); Albumin 3.8 g/dL (3.5-5.0); Alkaline Phosphatase 89 U/L (38-126); Anion Gap 10 mmol/L; Blood Urea Nitrogen 29 mg/dL (9-20); Calcium 8.3 mg/dL (8.4-10.2); Carbon Dioxide 17 mmol/L (22-30); Chloride 113 mmol/L (98-107); Glucose 93 mg/dL (74-99); Magnesium 2.1 mg/dL (1.6-2.3); Non-African American GFR(CKD) 69 (>60 ml/min/1.73 sqM); Phosphorus 3.3 mg/dL (2.5-4.5); Sodium 140 mmol/L (137-145); Total Bilirubin 2.2 mg/dL (0.2-1.3); Total Protein 6.4 g/dL (6.3-8.2)
[2023-08-16 14:18] LABS: Potassium 5.5 mmol/L (3.5-5.1)
--- NOTE | 2023-08-16 15:46 | P.PN ---
Subjective Progress Note Date: 08/16/23 HISTORY OF PRESENT ILLNESS: This is a 82-year-old male with a past medical history significant for fide estive heart failure, atrial fibrillation, hypertension, valvular heart disease, and hyperlipidemia. Patient follows in the office with Dr. De Paz. We have been asked to see the patient in consultation for John gutierres with RVR. Patient examined at the bedside. Patient is alert and oriented 1. His is at the bedside and providing the majority of the history. He was brought to the hospital for w orsening mental status along with "shaking" of his extremities at home. He is being treated for urinary tract infection and sepsis. EKG on admission revealed atrial fibrillation with RVR. Patient remains in atrial fibrillation at the time of examination with a heart rate in the 80s. His home medications have not been resumed at the time of examination. * EKG reveals atrial fibrillation with RVR * Chest xray cardiomegaly and mild pulmonary vascular congestion * Current home cardiac medications include Lasix 20 mg Wednesday, Cardizem 240 mg daily, and warfarin 2.5 mg daily, and rosuvastatin 40 mg at night * Most recent echocardiogram obtained in June 2022 revealed ejection fraction 55%, [id number] MR, moderate LVH, mild to moderate TR, moderate AR, * Patient with Lexiscan stress test in March 2023 which was negative for ischemia 08/16 The patient's is at the bedside and states that after the patient received Ativan and Keppra this morning is been sleeping since. Patient continues to have confusion. He has not complained of chest pain or shortness of breath to his . Lombardo catheter is placed noticed to have blood-tinged urine. Echocardiogram is pending. Patient is also undergoing neurology workup with MRI of the brain CAT scan of the brain and EEG. PHYSICAL EXAM: VITAL SIGNS: Reviewed. GENERAL: Well-developed in no acute distress. HEENT: Head is normocephalic. Pupils are equal, round. Sclerae anicteric. Mucous membranes of the mouth are moist. Neck supple. No JVD or thyromegaly LUNGS: Respirations even and unlabored. Lungs essentially clear to auscultation bilaterally. HEART: Irregular rate and rhythm. S1 and S2 heard. Systolic murmur noted ABDOMEN: Soft. Nondistended. Nontender. EXTREMITIES: Normal range of motion. No clubbing or cyanosis. Peripheral pulses intact. No lower extremity edema NEUROLOGIC: Lethargic ASSESSMENT: Metabolic encephalopathy Urinary tract infection Sepsis Persistent atrial fibrillation with RVR, currently rate controlled Chronic heart failure with preserved ejection fraction, currently euvolemic Valvular heart disease Hypertension Hyperlipidemia PLAN: 2-D echo has been ordered. Await results Continue telemetry monitoring Resume home cardiac medications Patient is currently rate controlled at the time of examination. He has yet to receive his morning medications. Patient is currently prescribed oral Cardizem on an outpatient basis. If patient develops issues with RVR again, we will add beta korin to his medication regimen Further recommendations pending patient's course Nurse practitioner note has been reviewed by physician. Signing provider agrees with the documented findings, assessment, and plan of care. Objective - Vital Signs Vital signs: Vital Signs Temp 97.8 F 08/16/23 08:30 Pulse 78 08/16/23 12:00 Resp 19 08/16/23 12:00 BP 106/68 08/16/23 12:00 Pulse Ox 94 L 08/16/23 12:00 FiO2 Intake & Output 08/15/23 08/16/23 08/16/23 18:59 06:59 18:59 Intake Total 70 240 Output Total 800 521 Balance -730 -521 240 Intake: IV 20 Invasive Line 1 10 Invasive Line 2 10 Intake, IV Titration 50 Amount cefTRIAXone 2 gm In 50 Sodium Chloride 0.9% 50 ml @ 100 mls/hr IVPB [facility] Rx#:[id number] Oral 240 Output: Urine 800 325 Straight 800 Post Void Residual 196 Other: Voiding Method External Catheter Indwelling Catheter Indwelling Catheter - Labs CBC & Chem 7: 08/16/23 13:13 08/16/23 13:13 Labs: Microbiology - Last 24 Hours (Table) 08/15/23 00:26 Blood Culture - Preliminary Blood
--- NOTE | 2023-08-16 16:02 | EEG ---
ELECTROENCEPHALOGRAM REPORT CLINICAL HISTORY: This is an 82-year-old gentleman who has body jerks. The video EEG is obtained to evaluate for seizure epileptiform activity. RELEVANT MEDICATIONS: Ativan and Keppra. EEG TYPE: This is a routine 21-channel EEG with video using the 10/20 electrode placement system. DESCRIPTION: The background consists of low voltage of 6 hertz activity, but predominantly the background throughout the study consists of low voltage nonrhythmic 1 to 2 hertz delta activity. There is no physiological stage 2 sleep architecture. There is no focal slowing. Interictal and ictal is none. ACTIVATION PROCEDURE: Photic stimulation did not evoke a posterior driving response. There is no abnormality during the photic stimulation. Hyperventilation is not performed. CLINICAL INTERPRETATION: This is an abnormal routine EEG. The background slowing is suggestive of moderate-to- severe encephalopathy. Otherwise, there is no focal slowing, epileptiform discharge, or seizure on the EEG. Clinical correlation is recommended. WILVER / NICOLE: [id number] / SEAN
[2023-08-16] MEDS ORDERED: WARFARIN 1 MG TAB PO ONE (18:00)
--- NOTE | 2023-08-16 18:13 | CT ---
EXAMINATION TYPE: CT brain wo con CT DLP: 1163.4 mGycm, Automated exposure control for dose reduction was used. DATE OF EXAM: 08/16/2023 5:48 PM COMPARISON: 12/13/2019. CLINICAL INDICATION:Male, 82 years old with history of altered mental status., AMS and confusion TECHNIQUE: Brain: Axial CT images of the brain were obtained with coronal and sagittal reformats created and rev iewed. Contrast used: None. Oral contrast used: None. FINDINGS: Brain: Extra-axial spaces: No abnormal extra-axial fluid collections. Ventricular system: Dilatation in proportion to cerebral atrophy. Cerebral parenchyma: Cerebral atrophy. No acute intraparenchymal hemorrhage or mass effect. The starks -white junction is well differentiated. Scattered hypoattenuating areas are seen within the white mat ter. Cerebellum: Unremarkable. Mass effect: No evidence of midline shift. Intracranial vasculature: Atherosclerotic calcifications of the intracranial vessels. Soft tissues: Normal. Calvarium/osseous structures: No depressed skull fracture. Paranasal sinuses and mastoid air cells: Mild scattered paranasal sinus disease. Visualized orbits: Bilateral aphakia IMPRESSION: 1. No acute intracranial process. 2. Nonspecific white matter changes, likely secondary to chronic small vessel ischemic disease.
[2023-08-16] MEDS: levETIRAcetam IV 500 MG/5 ML VIAL IVP SCH (22:33)
[2023-08-17] MEDS: CHOLECALCIFEROL 25 MCG (1000 IU) TABLET PO SCH (09:11)
[2023-08-17] MEDS: ASPIRIN 81 MG PO SCH (09:11)
[2023-08-17] MEDS: MEMANTINE 5 MG TAB PO SCH (09:12)
[2023-08-17] MEDS: ATORVASTATIN 80 MG TAB PO SCH (09:12)
[2023-08-17] MEDS: DILTIAZEM CD 240 MG CAP.ER.24H PO SCH (09:12)
[2023-08-17] MEDS: ASCORBIC ACID 500 MG TAB PO SCH (09:12)
[2023-08-17] MEDS: levETIRAcetam IV 500 MG/5 ML VIAL IVP SCH ×2 (09:12→20:17)
[2023-08-17] MEDS: PANTOPRAZOLE 40 MG/10 ML VIAL IV SCH (09:13)
[2023-08-17 10:12] LABS: INR 2.8 (<1.2); Prothrombin Time 27.3 sec (9.0-12.0)
[2023-08-17 10:14] LABS: African American GFR (CKD) >90 (>60 ml/min/1.73 sqM); Anion Gap 9 mmol/L; Blood Urea Nitrogen 25 mg/dL (9-20); Calcium 8.6 mg/dL (8.4-10.2); Carbon Dioxide 24 mmol/L (22-30); Chloride 109 mmol/L (98-107); Glucose 85 mg/dL (74-99); Non-African American GFR(CKD) 82 (>60 ml/min/1.73 sqM); Potassium 4.1 mmol/L (3.5-5.1); Sodium 142 mmol/L (137-145)
--- NOTE | 2023-08-17 12:21 | P.PN ---
Subjective Progress Note Date: 08/17/23 * 82-year-old gentleman with past medical history significant for atrial fibrillation on anticoagulation with Coumadin, memory impairment history of dementia presents to the emergency department with episode of worsening mentation. Patient was accompanied with his who assisted with history taking. Patient has been having chills which started recently. Per this symptom was similar to when patient had covert in the past. * Workup initiated in ER included hematology which were WBC of 16.4, bilirubin 17.1 platelet 2:15. INR of 2.1. Serum chemistry showed sodium 143 potassium 4.6 even 27 creatinine 1.36 * Patient tested negative for influenza and Covid * Chest x-ray obtained in ER showed cardiomegaly with pulmonary vascular congestion * EKG obtained in ER showed atrial fibrillation with rapid monitor response heart rate in 135 * Patient admitted to medical floor been treated for encephalopathy secondary to UTI and A. fib RVR * On further inquiry per on the last 48 hours he has become progressively weak. Patient does have lower extremity weakness with his legs giving up. Ever since Covid he has gotten progressively weak he does have baseline confusion however this was worse * 08/16/23: Patient seen and evaluated bedside, patient is on room air at this point. Heart rate is better controlled. Patient continues to have nonfocal jerky movement, however during these episodes patient is alert and talking. These movements have gotten worse over the last 24 hours. We will appreciate input from neurology, EEG and MRI brain ordered. Echocardiogram pending, serum chemistry and CBC pending we will review and take appropriate steps * 08/17/23: Patient seen and evaluated bedside, mentation has improved, normal tremors have resolved after starting IV Keppra. CT head negative, EE Gencephalopathy. at bedside. Appreciate input from neurology MRI brain pending Objective - Vital Signs Vital signs: Vital Signs Temp 98 F 08/17/23 12:00 Pulse 80 08/17/23 12:00 Resp 20 08/17/23 12:00 BP 127/70 08/17/23 12:00 Pulse Ox 97 08/17/23 12:00 FiO2 Intake & Output 08/16/23 08/17/23 08/17/23 18:59 06:59 18:59 Intake Total 560 180 Output Total 350 500 Balance 210 -500 180 Intake: Oral 560 180 Output: Urine 350 500 Other: Voiding Method Indwelling Catheter Indwelling Catheter # Voids 0 # Bowel Movements 0 1 - Exam PHYSICAL EXAMINATION: GENERAL: The patient is alert and oriented x1 , ill appearance HEENT: Pupils are round and equally reacting to light. CARDIOVASCULAR: Irregular rhythm , rate controlled PULMONARY: Chest is clear to auscultation, no wheezing or crackles. ABDOMEN: Soft, nontender, nondistended, normoactive bowel sounds. No palpable organomegaly. MUSCULOSKELETAL: No joint swelling or deformity. EXTREMITIES: No cyanosis, clubbing, or pedal edema. NEUROLOGICAL: Gross neurological examination did not reveal any focal deficits. intermittent jerky movements RESOLVED , no rigidity. Motor strength is 4 x 5 bilateral upper and lower extremity - Labs CBC & Chem 7: 08/16/23 13:13 08/17/23 08:06 Labs: Abnormal Lab Results - Last 24 Hours (Table) 08/16/23 08/16/23 08/16/23 Range/Units 13:13 13:13 13:13 WBC 14.3 H (3.8-10.6) k/uL Plt Count 131 L (150-450) k/uL Neutrophils # 11.3 H (1.3-7.7) k/uL PT 30.1 H (9.0-12.0) sec INR 3.1 H (<1.2) Potassium 5.5 H (3.5-5.1) mmol/L Chloride 113 H (98-107) mmol/L Carbon Dioxide 17 L (22-30) mmol/L BUN 29 H (9-20) mg/dL Calcium 8.3 L (8.4-10.2) mg/dL Total Bilirubin 2.2 H (0.2-1.3) mg/dL AST 171 H (17-59) U/L 08/17/23 08/17/23 Range/Units 08:06 08:06 WBC (3.8-10.6) k/uL Plt Count (150-450) k/uL Neutrophils # (1.3-7.7) k/uL PT 27.3 H (9.0-12.0) sec INR 2.8 H (<1.2) Potassium (3.5-5.1) mmol/L Chloride 109 H (98-107) mmol/L Carbon Dioxide (22-30) mmol/L BUN 25 H (9-20) mg/dL Calcium (8.4-10.2) mg/dL Total Bilirubin (0.2-1.3) mg/dL AST (17-59) U/L Microbiology - Last 24 Hours (Table) 08/15/23 09:17 Urine Culture - Final Urine,Catheterized 08/15/23 00:26 Blood Culture - Preliminary Blood Assessment and Plan Assessment: Assessment and plan * Acute metabolic encephalopathy * History of dementia with worsening mentation * Myoclonic jerking movement new onset * Urinary tract infection * Sepsis secondary to UTI * Chronic atrial fib pressures rapid ventricular response * History of congestive heart failure diastolic dysfunction * In regards to urinary tract infection, follow-up on urine cultures, continue patient on IV Rocephin day 3 * In regards to history of dementia with worsening mentation, continue to reorient maintain delirium precautions. Continue memantine. Neurology consulted, MRI brain pending * In regards to history of atrial fibrillation continue patient on Coumadin INR therapeutic, consult cardiology, fluid overload noted on chest x-ray caution with excessive fluid * In regards to history of CHF, echocardiogram ordered, Lasix placed on hold initially secondary to concern for sepsis from UTI. Caution with overh ydration * CODE STATUS is no code
--- NOTE | 2023-08-17 14:10 | CA ---
Transthoracic Echo Report Name: William Singh Age: 82 Gender: M : 1940 Exam Date: 08/17/2023 07:40 Exam Location: [facility] Ht (in): 73 Wt (lb): 230 Ordering Physician: Saleem Bell MD Attending/Referring Phys: Braille Coder Kriss Bruno [facility] Procedure CPT: Indications: Congestive heart failure Cardiac Hx: Technical Quality: Technically difficult study Contrast 1: Total Dose (mL): Contrast 2: Total Dose (mL): MEASUREMENTS (Male / Female) Normal Values 2D ECHO LV Diastolic Diameter PLAX 4.7 cm 4.2 - 5.9 / 3.9 - 5.3 cm LV Systolic Diameter PLAX 3.8 cm IVS Diastolic Thickness 1.0 cm 0.6 - 1.0 / 0.6 - 0.9 cm LVPW Diastolic Thickness 1.0 cm 0.6 - 1.0 / 0.6 - 0.9 cm LV Relative Wall Thickness 0.4 LVOT Diameter 2.0 cm Ascending Aorta Diameter 3.8 cm M-MODE Aortic Root Diameter MM 2.8 cm LA Systolic Diameter MM 3.8 cm LA Ao Ratio MM 1.4 AV Cusp Separation MM 1.9 cm DOPPLER AV Peak Velocity 116.0 cm/s AV Peak Gradient 5.4 mmHg AV Mean Velocity 78.2 cm/s AV Mean Gradient 2.8 mmHg AV Velocity Time Integral 23.1 cm AI Peak Velocity 438.1 cm/s AI Peak Gradient 76.8 mmHg AI Pressure Half Time 495.8 ms LVOT Peak Velocity 85.9 cm/s LVOT Peak Gradient 3.0 mmHg LVOT Velocity Time Integral 17.2 cm LVOT Stroke Volume 55.6 cm??? LVOT Stroke Volume Index 24.4 ml/m??? LVOT Cardiac Index 1829.0 cm???/min???m??? AV Area Cont Eq vti 2.4 cm??? AV Area Cont Eq pk 2.4 cm??? LV E' Lateral Velocity 12.8 cm/s LV E' Septal Velocity 10.0 cm/s TR Peak Velocity 222.4 cm/s TR Peak Gradient 19.8 mmHg Right Atrial Pressure 8.0 mmHg Pulmonary Artery Systolic Pressu 27.8 mmHg Right Ventricular Systolic Press 27.8 mmHg FINDINGS Left Ventricle Left ventricular wall thickness normal. Left ventricular cavity size normal. Low normal left ventricular systolic function with no obvious regional wall motion abnormalities. Left ventricular ejection fraction is estimated at 50- 55%. Right Ventricle Mild right ventricular dilatation. Right Atrium Normal right atrial size. Left Atrium Moderate left atrial dilatation. Mitral Valve Mild mitral annular calcification. Mild mitral regurgitation. Aortic Valve Trileaflet aortic valve. Thickened aortic valve. Aortic valve sclerosis. Mild- to-moderate aortic regurgitation. Tricuspid Valve Structurally normal tricuspid valve. Mild tricuspid regurgitation. Pulmonic Valve Pulmonic valve not well visualized. Pericardium No pericardial effusion. Echo free space anterior to the right ventricle likely represents a fat pad. Aorta Normal size aortic root and upper normal proximal ascending aorta. CONCLUSIONS Normal LV size and systolic function Mild RV enlargement 2+ aortic regurgitation Previewed by: Dr. Boris De Paz MD (Electronically Signed) Final Date: 17 August 2023 14:09
--- NOTE | 2023-08-17 15:14 | P.PN ---
Subjective Progress Note Date: 08/17/23 HISTORY OF PRESENT ILLNESS: This is a 82-year-old male with a past medical history significant for fide estive heart failure, atrial fibrillation, hypertension, valvular heart disease, and hyperlipidemia. Patient follows in the office with Dr. De Paz. We have been asked to see the patient in consultation for John gutierres with RVR. Patient examined at the bedside. Patient is alert and oriented 1. His is at the bedside and providing the majority of the history. He was brought to the hospital for w orsening mental status along with "shaking" of his extremities at home. He is being treated for urinary tract infection and sepsis. EKG on admission revealed atrial fibrillation with RVR. Patient remains in atrial fibrillation at the time of examination with a heart rate in the 80s. His home medications have not been resumed at the time of examination. * EKG reveals atrial fibrillation with RVR * Chest xray cardiomegaly and mild pulmonary vascular congestion * Current home cardiac medications include Lasix 20 mg Wednesday, Cardizem 240 mg daily, and warfarin 2.5 mg daily, and rosuvastatin 40 mg at night * Most recent echocardiogram obtained in June 2022 revealed ejection fraction 55%, [id number] MR, moderate LVH, mild to moderate TR, moderate AR, * Patient with Lexiscan stress test in March 2023 which was negative for ischemia 08/16 The patient's is at the bedside and states that after the patient received Ativan and Keppra this morning is been sleeping since. Patient continues to have confusion. He has not complained of chest pain or shortness of breath to his . Lombardo catheter is placed noticed to have blood-tinged urine. Echocardiogram is pending. Patient is also undergoing neurology workup with MRI of the brain CAT scan of the brain and EEG. 08/17 Yesterday patient was sleeping all day until this morning after receiving Ativan and Keppra. Patient woke up this morning he is awake and alert. He is working with PT and OT at this time. Blood pressure 119/75, heart rate 85, pulse ox 96% on room air, afebrile. Noted Lombardo catheter in place with dark brown urine. Echocardiogram reveals normal LV size and systolic function. Mild RV enla rgement. 2+ aortic regurgitation. PHYSICAL EXAM: VITAL SIGNS: Reviewed. GENERAL: Well-developed in no acute distress. HEENT: Head is normocephalic. Pupils are equal, round. Sclerae anicteric. Mucous membranes of the mouth are moist. Neck supple. No JVD or thyromegaly LUNGS: Respirations even and unlabored. Lungs essentially clear to auscultation bilaterally. HEART: Irregular rate and rhythm. S1 and S2 heard. Systolic murmur noted ABDOMEN: Soft. Nondistended. Nontender. EXTREMITIES: Normal range of motion. No clubbing or cyanosis. Peripheral pulses intact. No lower extremity edema NEUROLOGIC: Lethargic ASSESSMENT: Metabolic encephalopathy Urinary tract infection Sepsis Persistent atrial fibrillation with RVR, currently rate controlled Chronic heart failure with preserved ejection fraction, currently euvolemic Valvular heart disease Hypertension Hyperlipidemia PLAN: Continue home cardiac medications Patient is currently rate controlled at the time of examination. Cardiology will sign off this case and follow on an as-needed basis. Please reconsult for any new concerns. Patient may follow-up in the office in one to [address] De Paz. Nurse practitioner note has been reviewed by physician. Signing provider agrees with the documented findings, assessment, and plan of care. Objective - Vital Signs Vital signs: Vital Signs Temp 98.5 F 08/17/23 08:00 Pulse 84 08/17/23 08:00 Resp 18 08/17/23 08:00 BP 119/75 08/17/23 08:00 Pulse Ox 96 08/17/23 08:00 FiO2 Intake & Output 08/16/23 08/17/23 08/17/23 18:59 06:59 18:59 Intake Total 560 180 Output Total 350 500 Balance 210 -500 180 Intake: Oral 560 180 Output: Urine 350 500 Other: Voiding Method Indwelling Catheter Indwelling Catheter # Voids 0 # Bowel Movements 0 1 - Labs CBC & Chem 7: 08/16/23 13:13 08/17/23 08:06 Labs: Abnormal Lab Results - Last 24 Hours (Table) 08/16/23 08/16/23 08/16/23 Range/Units 13:13 13:13 13:13 WBC 14.3 H (3.8-10.6) k/uL Plt Count 131 L (150-450) k/uL Neutrophils # 11.3 H (1.3-7.7) k/uL PT 30.1 H (9.0-12.0) sec INR 3.1 H (<1.2) Potassium 5.5 H (3.5-5.1) mmol/L Chloride 113 H (98-107) mmol/L Carbon Dioxide 17 L (22-30) mmol/L BUN 29 H (9-20) mg/dL Calcium 8.3 L (8.4-10.2) mg/dL Total Bilirubin 2.2 H (0.2-1.3) mg/dL AST 171 H (17-59) U/L 08/17/23 08/17/23 Range/Units 08:06 08:06 WBC (3.8-10.6) k/uL Plt Count (150-450) k/uL Neutrophils # (1.3-7.7) k/uL PT 27.3 H (9.0-12.0) sec INR 2.8 H (<1.2) Potassium (3.5-5.1) mmol/L Chloride 109 H (98-107) mmol/L Carbon Dioxide (22-30) mmol/L BUN 25 H (9-20) mg/dL Calcium (8.4-10.2) mg/dL Total Bilirubin (0.2-1.3) mg/dL AST (17-59) U/L Microbiology - Last 24 Hours (Table) 08/15/23 09:17 Urine Culture - Final Urine,Catheterized 08/15/23 00:26 Blood Culture - Preliminary Blood
[2023-08-17] MEDS: LORazepam 2 MG/ML INJ IV PRN (15:37)
[2023-08-17] MEDS: DICLOFENAC SODIUM GEL 100 GM TUBE TOPICAL SCH ×2 (15:41→20:33)
--- NOTE | 2023-08-17 16:17 | P.PN ---
Subjective Progress Note Date: 08/17/23 I am following-up with patient and is accompanied with his who states he is doing drastically better and no further myoclonic jerks since was given Ativan prior to EEG yesterday. Patient feels he is doing well. Objective - Vital Signs Vital signs: Vital Signs Temp 98.5 F 08/17/23 15:40 Pulse 66 08/17/23 15:40 Resp 20 08/17/23 15:40 BP 106/69 08/17/23 15:40 Pulse Ox 96 08/17/23 15:40 FiO2 Intake & Output 08/16/23 08/17/23 08/17/23 18:59 06:59 18:59 Intake Total 560 360 Output Total 350 500 Balance 210 -500 360 Intake: Oral 560 360 Output: Urine 350 500 Other: Voiding Method Indwelling Catheter Indwelling Catheter Indwelling Catheter # Voids 0 # Bowel Movements 0 1 - Exam General: Lying in bed and is not in acute distress. Neuro: Limited because of his underlying dementia. She is awake alert oriented to self and he stated these at home he cannot tell me the year and per the at baseline he does not know the year or the month. He is following few simple commands. No aphasia from limited language. No facial weakness. No dysarthria Motor is a strength ease the left in all extremities above gravity and seems equally. No further myoclonic jerks. Some of the workup during his hospital visit consisted of: Initial white blood cells 16.4 thousand. Which is trending down Creatinine is 1.36, plasma attic acid venous 3.2. Initial serum glucose is 94, AST ALT, calcium, phosphorus and magnesium are within normal limits. Also sewing is within normal limits next Influenza A/B, RSV, SARS Covid PCR was not detected Ammonia is 17 TSH is 0.475. Routine EEG is abnormal. The background slowing is suggestive of moderate to severe encephalopathy. Otherwise there is no focal slowing, epileptiform discharges or seizure on the EEG. CT of the head is reported as no acute intracranial process. 2-D echo was reported as normal left ventricle size and systolic function. Mild right ventricular enlargement. 2 positive aortic regurgitation. - Labs CBC & Chem 7: 08/16/23 13:13 08/17/23 08:06 Labs: Abnormal Lab Results - Last 24 Hours (Table) 08/17/23 08/17/23 Range/Units 08:06 08:06 PT 27.3 H (9.0-12.0) sec INR 2.8 H (<1.2) Chloride 109 H (98-107) mmol/L BUN 25 H (9-20) mg/dL Microbiology - Last 24 Hours (Table) 08/15/23 00:26 Blood Culture - Preliminary Blood 08/15/23 09:17 Urine Culture - Final Urine,Catheterized Assessment and Plan Assessment: This is an 82-year-old gentleman with history of advanced dementia, prior COVID- 19 infection who presents because of worsening altered mental status. Per the patient's he is having multiple episodes of body jerks since this past Wednesday and he had similar episodes in December 2022 which lasted several days to the resolved. At that time he had an EEG and was reported as no underlying seizure or clear epileptiform discharges. Repeated episode of myoclonic jerks rule out underlying seizure versus metabolic. Patient's episodes has resolved after Ativan and been started on Keppra therefore possible seizure-like activity but cannot exclude metabolic cause since since also be resolved with benzos as well---currently stable. Advanced dementia History of atrial fibrillation on coumadin History of COVID-19 infection Plan: On the EEG shows a moderate to severe encephalopathy. There is no seizure or discharges. Yesterday I loaded the patient with Keppra 1 g once and then I start the patient on Keppra 500 mg every 12 hours and so far the patient has not had any further episodes. Patient's is in agreement of continuing the Keppra since his episodes has resolved. MRI the brain is ordered and is pending and if unable to be obtained and we'll consider as an outpatient. Will defer the rest of medical management to the primary team. The plan was discussed with the patient's who is at bedside. Will continue to follow. Time with Patient: Less than 30
[2023-08-17] MEDS ORDERED: WARFARIN 2 MG TAB PO ONE (18:00)
[2023-08-18] MEDS: LORazepam 2 MG/ML INJ IV PRN ×2 (00:38→17:16)
[2023-08-18] MEDS: ASCORBIC ACID 500 MG TAB PO SCH (09:35)
[2023-08-18] MEDS: ATORVASTATIN 80 MG TAB PO SCH (09:35)
[2023-08-18] MEDS: ASPIRIN 81 MG PO SCH (09:35)
[2023-08-18] MEDS: CHOLECALCIFEROL 25 MCG (1000 IU) TABLET PO SCH (09:35)
[2023-08-18] MEDS: DILTIAZEM CD 240 MG CAP.ER.24H PO SCH (09:35)
[2023-08-18] MEDS: PANTOPRAZOLE 40 MG/10 ML VIAL IV SCH (09:36)
[2023-08-18] MEDS: levETIRAcetam IV 500 MG/5 ML VIAL IVP SCH ×2 (09:36→21:13)
[2023-08-18] MEDS: DICLOFENAC SODIUM GEL 100 GM TUBE TOPICAL SCH ×4 (09:36→22:02)
[2023-08-18] MEDS: MEMANTINE 5 MG TAB PO SCH (09:36)
--- NOTE | 2023-08-18 11:17 | MR ---
EXAMINATION TYPE: MR brain wo con DATE OF EXAM: 08/18/2023 COMPARISON: NONE HISTORY: Confusion, tremors. TECHNIQUE: T1-weighted sagittal, T2, FLAIR, and diffusion axial, and T2 coronal coronal views of the brain are submitted. FINDINGS: There is no evidence of acute ischemia. There is [id number] degenerative change of the greater frontal lobe component. Scattered focal areas of abnormal signal white matter are nonspecific but mos t of remote ischemia. Changes of chronic right-sided mastoiditis. Nasal septal deviation. Orbits are symmetric. No significant changes of sinusitis. Craniocervical ashley ction maintained. Sella turcica has a normal appearance. No cerebellopontine angle mass. On the right cerebral colon convexity particularly noted on FLAIR kristina ging there is a 7 mm in thickness extra-axial subdural fluid collection likely representing a subdura l hematoma with no significant mass effect. Report was called to the patient's nurse at 11:11 AM 08/08. IMPRESSION: 1. There is a 7 mm in thickness subdural hematoma overlying the right cerebral convexity. Recommend r epeat head CT to help determine chronicity given lack of any significant T1 imaging. 2. No acute ischemia. 3. Degenerative change with a greater frontal lobe component similar to recent CT scan.
[2023-08-18 12:36] LABS: INR 3.2 (<1.2); Prothrombin Time 31.3 sec (9.0-12.0)
--- NOTE | 2023-08-18 13:37 | P.PN ---
Subjective Progress Note Date: 08/18/23 I am following up with the patient and the according to the he continues to be doing drastically better compared to his initial presentation. Patient denies of any headache or any new neurological issues. Seems the patient had MRI and there is questionable subdural and recommended a CT. Objective - Vital Signs Vital signs: Vital Signs Temp 97.7 F 08/18/23 12:00 Pulse 76 08/18/23 12:00 Resp 18 08/18/23 12:00 BP 112/73 08/18/23 12:00 Pulse Ox 98 08/18/23 12:00 FiO2 Intake & Output 08/17/23 08/18/23 08/18/23 18:59 06:59 18:59 Intake Total 360 420 Output Total 500 250 Balance 360 -500 170 Intake: Oral 360 420 Output: Urine 500 250 Other: Voiding Method Indwelling Catheter Indwelling Catheter Indwelling Catheter # Bowel Movements 1 1 - Exam General: Lying in bed and is not in acute distress. Neuro: Limited because of his underlying dementia. He is awake alert oriented to self and stated he is in hospital. He is following few simple commands. No aphasia from limited language. No facial weakness. No dysarthria Motor is a strength ease the left in all extremities above gravity and seems equally. No further myoclonic jerks. Some of the workup during his hospital visit consisted of: Initial white blood cells 16.4 thousand. Which is trending down Creatinine is 1.36, plasma attic acid venous 3.2. Initial serum glucose is 94, AST ALT, calcium, phosphorus and magnesium are within normal limits. Also se wing is within normal limits next Influenza A/B, RSV, SARS Covid PCR was not detected Ammonia is 17 TSH is 0.475. Routine EEG is abnormal. The background slowing is suggestive of moderate to severe encephalopathy. Otherwise there is no focal slowing, epileptiform discharges or seizure on the EEG. CT of the head is reported as no acute intracranial process. 2-D echo was reported as normal left ventricle size and systolic function. Mild right ventricular enlargement. 2 positive aortic regurgitation. MR the brain is reported as there is 7 mm thickness subdural hematoma overlying the right cerebral convexity recommend repeat CT to help determine chronicity given lack of any significant T1 imaging. No acute ischemia. Degenerative change with a great frontal lobe component similar to recent CT. - Labs CBC & Chem 7: 08/16/23 13:13 08/17/23 08:06 Labs: Abnormal Lab Results - Last 24 Hours (Table) 08/18/23 Range/Units 12:15 PT 31.3 H (9.0-12.0) sec INR 3.2 H (<1.2) Microbiology - Last 24 Hours (Table) 08/15/23 00:26 Blood Culture - Preliminary Blood Assessment and Plan Assessment: This is an 82-year-old gentleman with history of advanced dementia, prior COVID- 19 infection who presents because of worsening altered mental status. Per the patient's he is having multiple episodes of body jerks since this past Wednesday and he had similar episodes in December 2022 which lasted several days to the resolved. At that time he had an EEG and was reported as no underlying seizure or clear epileptiform discharges. Repeated episode of myoclonic jerks rule out underlying seizure versus metabolic. Patient's episodes has resolved after Ativan and been started on Keppra therefore possible seizure-like activity but cannot exclude metabolic cause since since also be resolved with benzos as well---currently stable. ?Subdural on MRI Brain Advanced dementia History of atrial fibrillation on coumadin History of COVID-19 infection Plan: MR the brain is reported as there is 7 mm thickness subdural hematoma overlying the right cerebral convexity recommend repeat CT to help determine chronicity given lack of any significant T1 imaging. No acute ischemia. Degenerative change with a great frontal lobe component similar to recent CT. I ordered repeat CT head. Continue Keppra 500 mg every 12 hours for myolconic jerks and so far the patient has not had any further episodes. Patient's is in agreement of continuing the Keppra since his episodes has resolved. Will defer the rest of medical management to the primary team. The plan was discussed with the patient's who is at bedside and primary team. Will continue to follow. Time with Patient: Less than 30
[2023-08-18 13:38] LABS: African American GFR (CKD) >90 (>60 ml/min/1.73 sqM); Anion Gap 10 mmol/L; Blood Urea Nitrogen 21 mg/dL (9-20); Calcium 8.5 mg/dL (8.4-10.2); Carbon Dioxide 18 mmol/L (22-30); Chloride 111 mmol/L (98-107); Glucose 128 mg/dL (74-99); HCT 49.3 % (39.0-53.0); MCH 31.9 pg (25.0-35.0); MCHC 32.5 g/dL (31.0-37.0); MCV 97.9 fL (80.0-100.0); Mean Platelet Volume 10.2; Non-African American GFR(CKD) >90 (>60 ml/min/1.73 sqM); Platelet Count 114 k/uL (150-450); RBC 5.03 m/uL (4.30-5.90); RDW 12.9 % (11.5-15.5); Sodium 139 mmol/L (137-145)
[2023-08-18 13:43] VITALS: BMI 30.3
[2023-08-18 13:51] LABS: Potassium 5.8 mmol/L (3.5-5.1)
--- NOTE | 2023-08-18 14:35 | P.PN ---
Subjective Progress Note Date: 08/18/23 * 82-year-old gentleman with past medical history significant for atrial fibrillation on anticoagulation with Coumadin, memory impairment history of dementia presents to the emergency department with episode of worsening mentation. Patient was accompanied with his who assisted with history taking. Patient has been having chills which started recently. Per this symptom was similar to when patient had covert in the past. * Workup initiated in ER included hematology which were WBC of 16.4, bilirubin 17.1 platelet 2:15. INR of 2.1. Serum chemistry showed sodium 143 potassium 4.6 even 27 creatinine 1.36 * Patient tested negative for influenza and Covid * Chest x-ray obtained in ER showed cardiomegaly with pulmonary vascular congestion * EKG obtained in ER showed atrial fibrillation with rapid monitor response heart rate in 135 * Patient admitted to medical floor been treated for encephalopathy secondary to UTI and A. fib RVR * On further inquiry per on the last 48 hours he has become progressively weak. Patient does have lower extremity weakness with his legs giving up. Ever since Covid he has gotten progressively weak he does have baseline confusion however this was worse * 08/16/23: Patient seen and evaluated bedside, patient is on room air at this point. Heart rate is better controlled. Patient continues to have nonfocal jerky movement, however during these episodes patient is alert and talking. These movements have gotten worse over the last 24 hours. We will appreciate input from neurology, EEG and MRI brain ordered. Echocardiogram pending, serum chemistry and CBC pending we will review and take appropriate steps * 08/17/23: Patient seen and evaluated bedside, mentation has improved, normal tremors have resolved after starting IV Keppra. CT head negative, EE Gencephalopathy. at bedside. Appreciate input from neurology MRI brain pending 08/18. Patient seen and examined. MRI done was suspicious for subdural hematoma, discussed neurology, they recommended doing B CT head without contrast and at the bedside. She states patient is doing much better. Patient is feeding himself REVIEW OF SYSTEMS: CONSTITUTIONAL: No fever, no malaise,. CARDIOVASCULAR: No chest pain, no palpitations, no syncope. PULMONARY: No shortness of breath, no cough, GASTROINTESTINAL: No diarrhea, no nausea, no vomiting, no abdominal pain. NEUROLOGICAL: No headaches, no weakness, PHYSICAL EXAMINATION: GENERAL: The patient is alert and oriented x3, not in any acute distress. Well developed, well nourished. HEENT: Pupils are round and equally reacting to light. EOMI. No scleral icterus. No conjunctival pallor. Normocephalic, atraumatic. No pharyngeal erythema. No thyromegaly. CARDIOVASCULAR: S1 and S2 present. No murmurs, rubs, or gallops. PULMONARY: Chest is clear to auscultation, no wheezing or crackles. ABDOMEN: Soft, nontender, nondistended, normoactive bowel sounds. No palpable organomegaly. MUSCULOSKELETAL: No joint swelling or deformity. EXTREMITIES: No cyanosis, clubbing, or pedal edema. NEUROLOGICAL: Gross neurological examination did not reveal any focal deficits. Muscle strength of 4/5 in all extremities SKIN: No rashes. Assessment and plan * Acute metabolic encephalopathy * History of dementia with worsening mentation * Myoclonic jerking movement new onset * Urinary tract infection * Sepsis secondary to UTI Persistent atrial fibrillation with RVR, currently rate controlled Chronic heart failure with preserved ejection fraction, currently euvolemic Monitor vital signs Monitor CBC Monitor CMP Follow-up urine cultures Continue IV Rocephin Continue Keppra MRI shows 7 mm thickness subdural hematoma overlying the right cerebral convexity Hold Coumadin and aspirin for now Neurology following, discussed with them regarding MRI findings, the recommending doing repeat CT head without contrast Socially Responsible Investment Adviser signed off, recommend keeping Current heart medications Labs and medication were reviewed.. Continue same treatment. Continue with symptomatic treatment. Resume home medication. Monitor labs and vitals. DVT and GI prophylaxis. Further recommendations as per clinical course of the patient Dictation was produced using [employer] dictation software. please excuse any grammatical, word or spelling errors. Objective - Vital Signs Vital signs: Vital Signs Temp 97.5 F L 08/18/23 08:00 Pulse 86 08/18/23 08:00 Resp 20 08/18/23 08:00 BP 119/72 08/18/23 08:00 Pulse Ox 98 08/18/23 08:00 FiO2 Intake & Output 08/17/23 08/18/23 08/18/23 18:59 06:59 18:59 Intake Total 360 420 Output Total 500 250 Balance 360 -500 170 Intake: Oral 360 420 Output: Urine 500 250 Other: Voiding Method Indwelling Catheter Indwelling Catheter Indwelling Catheter # Bowel Movements 1 1 - Labs CBC & Chem 7: 08/18/23 13:06 08/18/23 13:06 Labs: Microbiology - Last 24 Hours (Table) 08/15/23 00:26 Blood Culture - Preliminary Blood
--- NOTE | 2023-08-18 14:48 | CT ---
EXAMINATION TYPE: CT brain wo con DATE OF EXAM: 08/18/2023 COMPARISON: 08/16/2023 HISTORY: Abn MRI, subdural CT DLP: 1084.4 mGycm Automated exposure control for dose reduction was used. FINDINGS: There is a moderate generalized degenerative change of the greater frontal lobe component. MRI abnorm ality appears to correspond to a subacute chronic small right-sided subdural hematoma with no midline shift or mass effect. Intracranial atherosclerotic changes. Sella turcica normal. Craniocervical junction maintained. IMPRESSION: 1. MRI ABNORMALITY APPEARS TO CORRESPOND TO A SUBACUTE TO CHRONIC SMALL RIGHT-SIDED SUBDURAL HEMATOMA WITH NO EVIDENCE OF MIDLINE SHIFT OR MASS EFFECT.
[2023-08-19 08:45] LABS: INR 2.5 (<1.2); Prothrombin Time 24.6 sec (9.0-12.0)
[2023-08-19] MEDS: CHOLECALCIFEROL 25 MCG (1000 IU) TABLET PO SCH (09:13)
[2023-08-19] MEDS: MEMANTINE 5 MG TAB PO SCH (09:13)
[2023-08-19] MEDS: DILTIAZEM CD 240 MG CAP.ER.24H PO SCH (09:13)
[2023-08-19] MEDS: ATORVASTATIN 80 MG TAB PO SCH (09:13)
[2023-08-19] MEDS: ASCORBIC ACID 500 MG TAB PO SCH (09:13)
[2023-08-19] MEDS: DICLOFENAC SODIUM GEL 100 GM TUBE TOPICAL SCH ×4 (09:14→22:06)
[2023-08-19] MEDS: PANTOPRAZOLE 40 MG/10 ML VIAL IV SCH (09:14)
[2023-08-19] MEDS: levETIRAcetam IV 500 MG/5 ML VIAL IVP SCH ×2 (09:14→22:06)
--- NOTE | 2023-08-19 13:28 | P.PN ---
Subjective Progress Note Date: 08/19/23 * 82-year-old gentleman with past medical history significant for atrial fibrillation on anticoagulation with Coumadin, memory impairment history of dementia presents to the emergency department with episode of worsening mentation. Patient was accompanied with his who assisted with history taking. Patient has been having chills which started recently. Per this symptom was similar to when patient had covert in the past. * Workup initiated in ER included hematology which were WBC of 16.4, bilirubin 17.1 platelet 2:15. INR of 2.1. Serum chemistry showed sodium 143 potassium 4.6 even 27 creatinine 1.36 * Patient tested negative for influenza and Covid * Chest x-ray obtained in ER showed cardiomegaly with pulmonary vascular congestion * EKG obtained in ER showed atrial fibrillation with rapid monitor response heart rate in 135 * Patient admitted to medical floor been treated for encephalopathy secondary to UTI and A. fib RVR * On further inquiry per on the last 48 hours he has become progressively weak. Patient does have lower extremity weakness with his legs giving up. Ever since Covid he has gotten progressively weak he does have baseline confusion however this was worse * 08/16/23: Patient seen and evaluated bedside, patient is on room air at this point. Heart rate is better controlled. Patient continues to have nonfocal jerky movement, however during these episodes patient is alert and talking. These movements have gotten worse over the last 24 hours. We will appreciate input from neurology, EEG and MRI brain ordered. Echocardiogram pending, serum chemistry and CBC pending we will review and take appropriate steps * 08/17/23: Patient seen and evaluated bedside, mentation has improved, normal tremors have resolved after starting IV Keppra. CT head negative, EE Gencephalopathy. at bedside. Appreciate input from neurology MRI brain pending * 08/18. Patient seen and examined. MRI done was suspicious for subdural hematoma, discussed neurology, they recommended doing B CT head without contrast and at the bedside. She states patient is doing much better. Patient is feeding himself * 08/19: Patient seen and evaluated bedside, care plan discussed with patient and . At this time aspirin and Coumadin placed on hold. After discussion with neurology we will repeat CT head and see if hematoma remained stable. Patient can go back on aspirin for neurology recommendations if subdural hematoma stable since it is chronic however we will continue to hold Coumadin. Blood work reviewed INR is 2.5 continue to monitor while holding Coumadin. Serum chemistry pending Objective - Vital Signs Vital signs: Vital Signs Temp 97.6 F 08/19/23 11:41 Pulse 74 08/19/23 11:41 Resp 18 08/19/23 11:41 BP 121/71 08/19/23 11:41 Pulse Ox 97 08/19/23 11:41 FiO2 Intake & Output 08/18/23 08/19/23 08/19/23 18:59 06:59 18:59 Intake Total 780 180 Output Total 450 800 550 Balance 330 -800 -370 Weight 104.326 kg Intake: Oral 780 180 Output: Urine 450 800 550 Other: Voiding Method Indwelling Catheter Indwelling Catheter Indwelling Catheter # Voids 0 # Bowel Movements 1 - Exam PHYSICAL EXAMINATION: GENERAL: The patient is alert and oriented x1 , ill appearance HEENT: Pupils are round and equally reacting to light. CARDIOVASCULAR: Irregular rhythm , rate controlled PULMONARY: Chest is clear to auscultation, no wheezing or crackles. ABDOMEN: Soft, nontender, nondistended, normoactive bowel sounds. No palpable organomegaly. MUSCULOSKELETAL: No joint swelling or deformity. EXTREMITIES: No cyanosis, clubbing, or pedal edema. NEUROLOGICAL: Gross neurological examination did not reveal any focal deficits. intermittent jerky movements RESOLVED , no rigidity. Motor strength is 4 x 5 bilateral upper and lower extremity - Labs CBC & Chem 7: 08/18/23 13:06 08/18/23 13:06 Labs: Abnormal Lab Results - Last 24 Hours (Table) 08/18/23 08/18/23 08/19/23 Range/Units 13:06 13:06 07:52 WBC 11.0 H (3.8-10.6) k/uL Plt Count 114 L (150-450) k/uL PT 24.6 H (9.0-12.0) sec INR 2.5 H (<1.2) Potassium 5.8 H (3.5-5.1) mmol/L Chloride 111 H (98-107) mmol/L Carbon Dioxide 18 L (22-30) mmol/L BUN 21 H (9-20) mg/dL Creatinine 0.65 L (0.66-1.25) mg/dL Glucose 128 H (74-99) mg/dL Microbiology - Last 24 Hours (Table) 08/15/23 00:26 Blood Culture - Preliminary Blood Assessment and Plan Assessment: Assessment and plan * Acute metabolic encephalopathy * History of dementia with worsening mentation * Myoclonic jerking movement new onset * Subacutechronic subdural hematoma right side * Urinary tract infection * Sepsis secondary to UTI * Chronic atrial fib pressures rapid ventricular response * History of congestive heart failure diastolic dysfunction * In regards to urinary tract infection, follow-up on urine cultures, continue patient on IV Rocephin day 5, and complete 7 day course * In regards to history of dementia with worsening mentation, continue to reorient maintain delirium precautions. Continue memantine. Neurology consulted, CT head, MRI brain reviewed repeat CT head ordered * In regards to history of atrial fibrillation , continue to hold aspirin and Coumadin. Continue Cardizem * In regards to history of CHF, echocardiogram showed preserved ejection fraction. l continue to hold Lasix. Appears euvolemic. Follow-up on basic metabolic panel and renal profile * CODE STATUS is no code
--- NOTE | 2023-08-19 13:35 | P.PN ---
Subjective Progress Note Date: 08/19/23 I'm following up with the patient and he is accompanied with his who states that the patient is at baseline. Regarding any falls in the last couple days weeks or months according to the he fell over the weekend but he did not hit his head. Otherwise she does not recall that he had any head trauma in the last days weeks or months. Objective - Vital Signs Vital signs: Vital Signs Temp 97.6 F 08/19/23 11:41 Pulse 74 08/19/23 11:41 Resp 18 08/19/23 11:41 BP 121/71 08/19/23 11:41 Pulse Ox 97 08/19/23 11:41 FiO2 Intake & Output 08/18/23 08/19/23 08/19/23 18:59 06:59 18:59 Intake Total 780 180 Output Total 450 800 550 Balance 330 -800 -370 Weight 104.326 kg Intake: Oral 780 180 Output: Urine 450 800 550 Other: Voiding Method Indwelling Catheter Indwelling Catheter Indwelling Catheter # Voids 0 # Bowel Movements 1 - Exam General: Lying in bed and is not in acute distress. Neuro: Limited because of his underlying dementia. He is awake alert oriented to self and stated he is in hospital. He is following few simple commands. No aphasia from limited language. No facial weakness. No dysarthria Motor is a strength ease the left in all extremities above gravity and seems equally. No further myoclonic jerks. Some of the workup during his hospital visit consisted of: Initial white blood cells 16.4 thousand. Which is trending down Creatinine is 1.36, plasma attic acid venous 3.2. Initial serum glucose is 94, AST ALT, calcium, phosphorus and magnesium are within normal limits. Also sewing is within normal limits next Influenza A/B, RSV, SARS Covid PCR was not detected Ammonia is 17 TSH is 0.475. Routine EEG is abnormal. The background slowing is suggestive of moderate to severe encephalopathy. Otherwise there is no focal slowing, epileptiform discharges or seizure on the EEG. CT of the head is reported as no acute intracranial process. 2-D echo was reported as normal left ventricle size and systolic function. Mild right ventricular enlargement. 2 positive aortic regurgitation. MR the brain is reported as there is 7 mm thickness subdural hematoma overlying the right cerebral convexity recommend repeat CT to help determine chronicity given lack of any significant T1 imaging. No acute ischemia. Degenerative change with a great frontal lobe component similar to recent CT. The CT of the head on 08/18/2023 is reported as MRI abnormality appears to correspond to a subacute to chronic small right-sided subdural hematoma with no evidence of midline shift or mass effect. I personally reviewed the CT and I am leading towards more chronic. - Labs CBC & Chem 7: 08/18/23 13:06 08/18/23 13:06 Labs: Abnormal Lab Results - Last 24 Hours (Table) 08/18/23 08/18/23 08/19/23 Range/Units 13:06 13:06 07:52 WBC 11.0 H (3.8-10.6) k/uL Plt Count 114 L (150-450) k/uL PT 24.6 H (9.0-12.0) sec INR 2.5 H (<1.2) Potassium 5.8 H (3.5-5.1) mmol/L Chloride 111 H (98-107) mmol/L Carbon Dioxide 18 L (22-30) mmol/L BUN 21 H (9-20) mg/dL Creatinine 0.65 L (0.66-1.25) mg/dL Glucose 128 H (74-99) mg/dL Microbiology - Last 24 Hours (Table) 08/15/23 00:26 Blood Culture - Preliminary Blood Assessment and Plan Assessment: This is an 82-year-old gentleman with history of advanced dementia, prior COVID- 19 infection who presents because of worsening altered mental status. Per the patient's he is having multiple episodes of body jerks since this past Wednesday and he had similar episodes in December 2022 which lasted several days to the resolved. At that time he had an EEG and was reported as no underlying seizure or clear epileptiform discharges. Repeated episode of myoclonic jerks rule out underlying seizure versus metabolic. Patient's episodes has resolved after Ativan and been started on Keppra therefore possible seizure-like activity but cannot exclude metabolic cause since since also be resolved with benzos as well---currently stable. Subacute to chronic Subdural on imaging. stated he had a recent fall this past weekend but does not recall head trauma. Advanced dementia History of atrial fibrillation on coumadin History of COVID-19 infection Plan: will get repeat CT head. His Coumadin was held because of this subdural. We'll get a repeat CT of the head and we'll decide resuming anticoagulation. In the meantime I notified the primary team that its safe to resume low-dose aspirin 81 mg daily. Continue Keppra 500 mg every 12 hours for myolconic jerks and so far the patient has not had any further episodes. Patient's is in agreement of continuing the Keppra since his episodes has resolved. Will defer the rest of medical management to the primary team. The plan was discussed with the patient's who is at bedside and primary team. Will continue to follow. Time with Patient: Less than 30
--- NOTE | 2023-08-19 14:27 | CT ---
EXAMINATION TYPE: CT brain wo con DATE OF EXAM: 08/19/2023 COMPARISON: 08/18/2023 HISTORY: Follow-up on intracranial bleed CT DLP: 1169.4 mGycm Automated exposure control for dose reduction was used. FINDINGS: Stable CSF prominence along the frontal lobes and right cerebral convexity. Findings are felt to be a gain compatible with late subacute to chronic subdural hematoma with no significant mass effect. Ther e is no evidence of acute hemorrhage. No midline shift. Hypodensity within the white matter is compatible with remote white matter ischemia. Calvarium is int act.. Orbits are symmetric. Nasal septal deviation noted. Changes of chronic sinusitis and mild right mastoiditis. IMPRESSION: 1. DEGENERATIVE AND REMOTE ISCHEMIC CHANGE WITH STABLE CSF COLLECTION INVOLVING BILATERAL FRONTAL LOB E AND RIGHT CEREBRAL CONVEXITY MOST COMPATIBLE WITH CHRONIC SUBDURAL HEMATOMA.
[2023-08-19 15:41] LABS: African American GFR (CKD) >90 (>60 ml/min/1.73 sqM); Anion Gap 9 mmol/L; Blood Urea Nitrogen 17 mg/dL (9-20); Calcium 8.3 mg/dL (8.4-10.2); Carbon Dioxide 24 mmol/L (22-30); Chloride 106 mmol/L (98-107); Glucose 102 mg/dL (74-99); Non-African American GFR(CKD) 85 (>60 ml/min/1.73 sqM); Potassium 4.2 mmol/L (3.5-5.1); Sodium 139 mmol/L (137-145)
[2023-08-19] MEDS: LORazepam 2 MG/ML INJ IV PRN (17:06)
[2023-08-20 08:28] LABS: HCT 52.2 % (39.0-53.0); HGB 16.9 gm/dL (13.0-17.5); MCHC 32.3 g/dL (31.0-37.0); MCV 99.2 fL (80.0-100.0); Platelet Count 163 k/uL (150-450); RBC 5.27 m/uL (4.30-5.90); RDW 12.9 % (11.5-15.5); WBC 10.3 k/uL (3.8-10.6)
[2023-08-20 08:36] LABS: Prothrombin Time 19.8 sec (9.0-12.0)
[2023-08-20 08:39] LABS: African American GFR (CKD) >90 (>60 ml/min/1.73 sqM); Anion Gap 11 mmol/L; Blood Urea Nitrogen 15 mg/dL (9-20); Calcium 8.7 mg/dL (8.4-10.2); Carbon Dioxide 21 mmol/L (22-30); Chloride 108 mmol/L (98-107); Glucose 106 mg/dL (74-99); Non-African American GFR(CKD) 87 (>60 ml/min/1.73 sqM); Potassium 4.2 mmol/L (3.5-5.1); Sodium 140 mmol/L (137-145)
[2023-08-20] MEDS: DICLOFENAC SODIUM GEL 100 GM TUBE TOPICAL SCH ×2 (09:31→12:21)
[2023-08-20] MEDS: ASCORBIC ACID 500 MG TAB PO SCH (09:31)
[2023-08-20] MEDS: PANTOPRAZOLE 40 MG/10 ML VIAL IV SCH (09:31)
[2023-08-20] MEDS: DILTIAZEM CD 240 MG CAP.ER.24H PO SCH (09:31)
[2023-08-20] MEDS: levETIRAcetam IV 500 MG/5 ML VIAL IVP SCH (09:31)
[2023-08-20] MEDS: CHOLECALCIFEROL 25 MCG (1000 IU) TABLET PO SCH (09:32)
[2023-08-20] MEDS: MEMANTINE 5 MG TAB PO SCH (09:32)
[2023-08-20] MEDS: ATORVASTATIN 80 MG TAB PO SCH (09:32)
[2023-08-20 13:08] VITALS: BP 117/84; PULSE 80; RESP 18; TEMP 97.5
--- NOTE | 2023-08-20 13:17 | P.PN ---
Subjective Progress Note Date: 08/20/23 I am following-up with patient and he is accompanied with his who denies of headache, nausea, vomiting or any new focal deficits. Objective - Vital Signs Vital signs: Vital Signs Temp 97.5 F L 08/20/23 12:00 Pulse 80 08/20/23 12:00 Resp 18 08/20/23 12:00 BP 117/84 08/20/23 12:00 Pulse Ox 94 L 08/20/23 12:00 FiO2 Intake & Output 08/19/23 08/20/23 08/20/23 18:59 06:59 18:59 Intake Total 600 240 Output Total 550 325 Balance 50 -325 240 Intake: Oral 600 240 Output: Urine 550 325 Other: Voiding Method Indwelling Catheter Indwelling Catheter Bedside Commode Bedpan Indwelling Catheter - Exam General: Lying in bed and is not in acute distress. Neuro: Limited because of his underlying dementia. He is awake alert oriented to self and stated he is in hospital. He is following few simple commands. No aphasia from limited language. No facial weakness. No dysarthria Motor is a strength ease the left in all extremities above gravity and seems equally. No further myoclonic jerks. Some of the workup during his hospital visit consisted of: Initial white blood cells 16.4 thousand. Which is trending down Creatinine is 1.36, plasma attic acid venous 3.2. Initial serum glucose is 94, AST ALT, calcium, phosphorus and magnesium are within normal limits. Also sewing is within normal limits next Influenza A/B, RSV, SARS Covid PCR was not detected Ammonia is 17 TSH is 0.475. Routine EEG is abnormal. The background slowing is suggestive of moderate to severe encephalopathy. Otherwise there is no focal slowing, epileptiform discharges or seizure on the EEG. CT of the head is reported as no acute intracranial process. 2-D echo was reported as normal left ventricle size and systolic function. Mild right ventricular enlargement. 2 positive aortic regurgitation. MR the brain is reported as there is 7 mm thickness subdural hematoma overlying the right cerebral convexity recommend repeat CT to help determine chronicity given lack of any significant T1 imaging. No acute ischemia. Degenerative change with a great frontal lobe component similar to recent CT. Repeat CT head on 08/18/2023 is reported as MRI abnormality appears to correspond to a subacute to chronic small right-sided subdural hematoma with no evidence of midline shift or mass effect. I personally reviewed the CT and I am leading towards more chronic. Repeat CT head on 08/19/23: Degenerative and remote ischemic change was stable CSF collection involving bilateral frontal lobe and right cerebral convexity most compatible with chronic subdural hematoma. - Labs CBC & Chem 7: 08/20/23 08:03 08/20/23 08:03 Labs: Abnormal Lab Results - Last 24 Hours (Table) 08/19/23 08/20/23 08/20/23 Range/Units 15:03 08:03 08:03 PT 19.8 H (9.0-12.0) sec INR 2.0 H (<1.2) Chloride 108 H (98-107) mmol/L Carbon Dioxide 21 L (22-30) mmol/L Glucose 102 H 106 H (74-99) mg/dL Calcium 8.3 L (8.4-10.2) mg/dL Microbiology - Last 24 Hours (Table) 08/15/23 00:26 Blood Culture - Final Blood Assessment and Plan Assessment: This is an 82-year-old gentleman with history of advanced dementia, prior COVID- 19 infection who presents because of worsening altered mental status. Per the patient's he is having multiple episodes of body jerks since this past Wednesday and he had similar episodes in December 2022 which lasted several days to the resolved. At that time he had an EEG and was reported as no underlying seizure or clear epileptiform discharges. Repeated episode of myoclonic jerks rule out underlying seizure versus metabolic. Patient's episodes has resolved after Ativan and been started on Keppra therefore possible seizure-like activity but cannot exclude metabolic cause since since also be resolved with benzos as well---currently stable. Subacute to chronic Subdural on imaging. stated he had a recent fall this past weekend but does not recall head trauma. Most recent CT head on 08/19/23 states chronic right subdural. Advanced dementia History of atrial fibrillation on coumadin History of COVID-19 infection Plan: His Coumadin was held because of this subdural but since chronic on most recent imaging an no additional active/acute bleed can resume Coumadin and to monitor patient closely. He is on low-dose aspirin 81 mg daily. Continue Keppra 500 mg every 12 hours for myolconic jerks and so far the patient has not had any further episodes. Patient's is in agreement of continuing the Keppra since his episodes has resolved. Will defer the rest of medical management to the primary team. The plan was discussed with the patient's who is at bedside and primary team. Will continue to follow sporadically. Dr. Zapata will start neurology service tomorrow A.M. then Dr. Coronel will resume this Wednesday A.M. If patient continues to be stable, then no further neurological work-up. Time with Patient: Less than 30
--- NOTE | 2023-08-20 13:54 | P.DS ---
Providers Date of admission: 08/15/23 04:02 Expected date of discharge: 08/20/23 Attending physician: Debbie Morales Consults: 08/15/23 08:49 Consult Physician Routine Consulting Provider: Chris Montana Consult Reason/Comments: A. fib with RVR, suspect cardiomyopathy Do you want consulting provider notified?: Yes 08/15/23 18:02 Consult Physician Routine Consulting Provider: Hattie Coronel Consult Reason/Comments: REsting tremors over 12 weeks, Eval for Neurocognitive issues Do you want consulting provider notified?: Yes Primary care physician: Coty Rose [facility] Course: * 82-year-old gentleman with past medical history significant for atrial fibrillation on anticoagulation with Coumadin, memory impairment history of dementia presents to the emergency department with episode of worsening mentation. Patient was accompanied with his who assisted with history taking. Patient has been having chills which started recently. Per this symptom was similar to when patient had covert in the past. * Workup initiated in ER included hematology which were WBC of 16.4, bilirubin 17.1 platelet 2:15. INR of 2.1. Serum chemistry showed sodium 143 potassium 4.6 even 27 creatinine 1.36 * Patient tested negative for influenza and Covid * Chest x-ray obtained in ER showed cardiomegaly with pulmonary vascular congestion * EKG obtained in ER showed atrial fibrillation with rapid monitor response heart rate in 135 * Patient admitted to medical floor been treated for encephalopathy secondary to UTI and A. fib RVR * On further inquiry per on the last 48 hours he has become progressively weak. Patient does have lower extremity weakness with his legs giving up. Ever since Covid he has gotten progressively weak he does have baseline confusion however this was worse * * Acute metabolic encephalopathy * History of dementia with worsening mentation * Myoclonic jerking movement new onset * Subacutechronic subdural hematoma right side * Urinary tract infection * Sepsis secondary to UTI * Chronic atrial fib pressures rapid ventricular response * History of congestive heart failure diastolic dysfunction * In regards to urinary tract infection, follow-up on urine cultures, continue patient on IV Rocephin day 5, and complete 7 day course * In regards to history of dementia with worsening mentation, continue to reorient maintain delirium precautions. Continue memantine. Neurology consulted, CT head, MRI brain reviewed repeat CT head ordered * In regards to history of atrial fibrillation , continue to hold aspirin and Coumadin. Continue Cardizem * In regards to history of CHF, echocardiogram showed preserved ejection fraction. l continue to hold Lasix. Appears euvolemic. Follow-up on basic metabolic panel and renal profile * 08/16/23: Patient seen and evaluated bedside, patient is on room air at this point. Heart rate is better controlled. Patient continues to have nonfocal jerky movement, however during these episodes patient is alert and talking. These movements have gotten worse over the last 24 hours. We will appreciate input from neurology, EEG and MRI brain ordered. Echocardiogram pending, serum chemistry and CBC pending we will review and take appropriate steps * 08/17/23: Patient seen and evaluated bedside, mentation has improved, normal tremors have resolved after starting IV Keppra. CT head negative, EEGenceph alopathy. at bedside. Appreciate input from neurology MRI brain pending * 08/18. Patient seen and examined. MRI done was suspicious for subdural hematoma, discussed neurology, they recommended doing B CT head without contrast and at the bedside. She states patient is doing much better. Patient is feeding himself * 08/19: Patient seen and evaluated bedside, care plan discussed with patient and . At this time aspirin and Coumadin placed on hold. After discussion with neurology we will repeat CT head and see if hematoma remained stable. Patient can go back on aspirin for neurology recommendations if subdural hematoma stable since it is chronic however we will continue to hold Coumadin. Blood work reviewed INR is 2.5 continue to monitor while holding Coumadin. Serum chemistry pending Repeat CT of the head was evaluated by neurology; given repeat CT confirming chronic subdural hematoma, neurology has cleared patient to resume home dose of Coumadin with close monitoring of PT/INR; recommend monitoring PT/INR daily which can be spaced out to be clearly upon PCP discretion Patient Condition at Discharge: Fair Plan - Discharge Summary Discharge Rx Participant: Yes New Discharge Prescriptions: New levETIRAcetam [Keppra] 500 mg PO Q12HR 30 Days #60 tab Pantoprazole Sodium [Protonix] 40 mg PO AC-BRKFST 30 Days #30 tab Warfarin [Coumadin] 2.5 mg PO DAILY 30 Days #30 tab Cephalexin [Keflex] 500 mg PO Q8HR 1 Days #7 cap Continue Furosemide [Lasix] 20 mg PO MOTH Diltiazem Cd [Cardizem CD] 240 mg PO DAILY Albuterol Inhaler [Ventolin Hfa Inhaler] 2 puff INHALATION RT-QID PRN #1 each PRN Reason: Shortness Of Breath Or Wheezing Rosuvastatin Calcium 40 mg PO DAILY Aspirin EC [Ecotrin Low Dose] 81 mg PO DAILY Ascorbic Acid [Vitamin C] 500 mg PO DAILY #30 tab Cholecalciferol [Vitamin D3 (25 Mcg = 1000 Iu)] 50 mcg PO DAILY Memantine [Namenda] 5 mg PO DAILY Discontinued Warfarin [Coumadin] 3.75 mg PO MOWEFRSA Warfarin [facility]charge Medication List Furosemide [Lasix] 20 mg PO MOTH 05/31/16 [History] Diltiazem Cd [Cardizem CD] 240 mg PO DAILY 12/13/22 [History] Albuterol Inhaler [Ventolin Hfa Inhaler] 2 puff INHALATION RT-QID PRN #1 each 12/17/22 [Rx] Ascorbic Acid [Vitamin C] 500 mg PO DAILY #30 tab 12/17/22 [Rx] Aspirin EC [Ecotrin Low Dose] 81 mg PO DAILY 08/15/23 [History] Cholecalciferol [Vitamin D3 (25 Mcg = 1000 Iu)] 50 mcg PO DAILY 08/15/23 [History] Memantine [Namenda] 5 mg PO DAILY 08/15/23 [History] Rosuvastatin Calcium 40 mg PO DAILY 08/15/23 [History] Cephalexin [Keflex] 500 mg PO Q8HR 1 Days #7 cap 08/20/23 [Rx] Pantoprazole Sodium [Protonix] 40 mg PO AC-BRKFST 30 Days #30 tab 08/20/23 [Rx] Warfarin [Coumadin] 2.5 mg PO DAILY 30 Days #30 tab 08/20/23 [Rx] levETIRAcetam [Keppra] 500 mg PO Q12HR 30 Days #60 tab 08/20/23 [Rx] Follow up Appointment(s)/Referral(s): Coty Rose MD [Primary Care Provider] - 1-2 days Discharge Disposition: TRANSFER TO [facility]
== END 2023-08-20 15:54 | DRG 871 ==
LOC: EC 23:49 → 3SCARD 08-15 04:01 → OBSVTOIN 08-15 04:02 → 3SCARD 08-15 04:43
PROVIDERS: ADMIT Hospitalist; ATTEND Hospitalist
DX: A41.9 Sepsis, unspecified organism (principal); G93.41 Metabolic encephalopathy; I62.03 Nontraumatic chronic subdural hemorrhage; G93.49 Other encephalopathy; F05 Delirium due to known physiological condition; I48.19 Other persistent atrial fibrillation; N39.0 Urinary tract infection, site not specified; I50.32 Chronic diastolic (congestive) heart failure; F03.90 Unspecified dementia, unspecified severity, without behavioral disturbance, psychotic disturbance, mood disturbance, and anxiety; G25.3 Myoclonus; I11.0 Hypertensive heart disease with heart failure; I35.1 Nonrheumatic aortic (valve) insufficiency; E78.5 Hyperlipidemia, unspecified; R31.0 Gross hematuria; Z20.822 Contact with and (suspected) exposure to COVID-19; Z91.81 History of falling; Z79.899 Other long term (current) drug therapy; Z79.82 Long term (current) use of aspirin; Z79.01 Long term (current) use of anticoagulants; Z88.1 Allergy status to other antibiotic agents; Z88.0 Allergy status to penicillin; Z86.16 Personal history of COVID-19
CPT/HCPCS: 36415; 70450; 70551; 71045; 80048; 80053; 81001; 82140; 83605; 83735; 83880; 84100; 84443; 84484; 85025; 85027; 85610; 85730; 87040; 87086; 87636; 93005; 93306; 94760; 95816; 96365; 96368; 96375; 96376; 99291

== ENCOUNTER 2023-12-13 07:55 | Emergency (ER) | payer MEDICARE ==
[2023-12-13 08:20] VITALS: RESP 18; TEMP 98.6
--- NOTE | 2023-12-13 08:37 | ED ---
Syncope HPI - General Chief Complaint: Syncope Stated Complaint: Syncope Time Seen by Provider: 12/13/23 08:07 Source: patient, EMS, RN notes reviewed Mode of arrival: EMS Limitations: no limitations - History of Present Illness Initial Comments: This is an 82 year old male who presents to the emergency department for a suspected syncopal episode. Per the patient's , he was using the restroom this morning, and when he went to sit back down on the bed, he seemed to be working harder to breathe. His states that he went unresponsive for appro ximately 5 seconds, prompting her to call EMS. After waking up, he has continued to seem to be working harder to breathe. Patient does admit to some shortness of breath. Denies any chest pain. He has no history of syncopal episodes in the past. Per his he has dementia and is at his baseline neurologically. MD Complaint: loss of consciousness - Related Data Home Medications Medication Instructions Recorded Confirmed Furosemide [Lasix] 20 mg PO MOTH 05/31/16 08/15/23 Diltiazem Cd [Cardizem CD] 240 mg PO DAILY 12/13/22 08/15/23 Aspirin EC [Ecotrin Low Dose] 81 mg PO DAILY 08/15/23 08/15/23 Cholecalciferol [Vitamin D3 (25 50 mcg PO DAILY 08/15/23 08/15/23 Mcg = 1000 Iu)] Memantine [Namenda] 5 mg PO DAILY 08/15/23 08/15/23 Rosuvastatin Calcium 40 mg PO DAILY 08/15/23 08/15/23 Previous Rx's Medication Instructions Recorded Albuterol Inhaler [Ventolin Hfa 2 puff INHALATION RT-QID PRN #1 12/17/22 Inhaler] each Ascorbic Acid [Vitamin C] 500 mg PO DAILY #30 tab 12/17/22 Cephalexin [Keflex] 500 mg PO Q8HR 1 Days #7 cap 08/20/23 Pantoprazole Sodium [Protonix] 40 mg PO AC-BRKFST 30 Days #30 tab 08/20/23 Warfarin [Coumadin] 2.5 mg PO DAILY 30 Days #30 tab 08/20/23 levETIRAcetam [Keppra] 500 mg PO Q12HR 30 Days #60 tab 08/20/23 Albuterol Sulfate [Albuterol 1 puff PO Q4-6H PRN #8.5 gm 12/13/23 Sulfate Hfa] Azithromycin [Zithromax] 250 mg PO DIRECTED 5 Days #6 tab 12/13/23 Allergies Allergy/AdvReac Type Severity Reaction Status Date / Time levofloxacin [From Levaquin] Allergy Leg Verified 12/13/23 08:05 Swelling Penicillins Allergy Unknown Verified 12/13/23 08:05 Review of Systems ROS Statement: Those systems with pertinent positive or pertinent negative responses have been documented in the HPI. ROS Other: All systems not noted in ROS Statement are negative. Past Medical History Past Medical History: Atrial Fibrillation, Memory Impairment Additional Past Medical History / Comment(s): bronchitis, falls History of Any Multi-Drug Resistant Organisms: None Reported Past Surgical History: Hernia Repair Past Anesthesia/Blood Transfusion Reactions: No Reported Reaction Past Psychological History: No Psychological Hx Reported Smoking Status: Never smoker Past Alcohol Use History: None Reported Past Drug Use History: None Reported General Exam Limitations: no limitations General appearance: alert, in no apparent distress Head exam: Present: atraumatic, normocephalic, normal inspection Eye exam: Present: normal appearance, PERRL, EOMI. Absent: scleral icterus, conjunctival injection, periorbital swelling Respiratory exam: Present: normal lung sounds bilaterally. Absent: respiratory distress, wheezes, rales, rhonchi, stridor Cardiovascular Exam: Present: regular rate, normal rhythm, normal heart sounds. Absent: systolic murmur, diastolic murmur, rubs, gallop, clicks Neurological exam: Present: alert, other (oriented x2 - baseline) Psychiatric exam: Present: normal affect, normal mood Skin exam: Present: warm, dry, intact, normal color. Absent: rash Course Vital Signs 12/13/23 12/13/23 12/13/23 07:57 08:48 10:00 Temperature 98.6 F Pulse Rate 68 101 H 85 Respiratory 18 18 18 Rate Blood Pressure 120/86 140/86 127/91 O2 Sat by Pulse 98 98 97 Oximetry 12/13/23 12/13/23 12/13/23 10:30 11:00 11:30 Temperature Pulse Rate 73 80 82 Respiratory 18 18 18 Rate Blood Pressure 125/95 116/86 125/77 O2 Sat by Pulse 97 Oximetry 12/13/23 12:39 Temperature Pulse Rate 80 Respiratory 18 Rate Blood Pressure 126/74 O2 Sat by Pulse 96 Oximetry Medical Decision Making - Medical Decision Making This is an 82-year-old male who presents to the emergency department for a syncopal episode. Was pt. sent in by a medical professional or institution? @ -No Did you speak to anyone other than the patient for history? @ -His provided most of the history due to the patient having dementia. Did you review nursing and triage notes? @ -Yes, and I agree, it is accurate with regards to the patient's symptoms. Were old charts reviewed? @ -No Differential Diagnosis? @ -Differential Syncope: Valvular disease, hypertrophic cardiomyopathy, pulmonary embolism, tamponade, tachycardia, bradycardia, RI, hypovolemia, hemorrhage, dissection, anemia, intracranial hemorrhage, seizure, hypoglycemia, carbon monoxide poisoning, this is not meant to be an all-inclusive list. EKG interpreted by me (3pts min.)? @ -EKG interpreted by me demonstrating the following: Atrial fibrillation. Ventricular rate 89 BPM, QRS duration 85 ms, QTc 438 ms. Patient has hx of a- fib. X-rays interpreted by me (1pt min.)? @ -Chest x-ray obtained. My interpretation identifies a left lower lobe infiltrate. CT interpreted by me (1pt min.)? @ -CT scan of the brain obtained. My interpretation identifies no evidence of an acute intracranial hemorrhage. U/S interpreted by me (1pt. min.)? @ -Not obtained What testing was considered but not performed? (CT, X-rays, U/S, labs)? Why? @ -None What meds were considered but not given? Why? @ -None Did you discuss the management of the patient with other professionals? @ -No Did you reconcile home meds? @ -No Was smoking cessation discussed for >3mins.? @ -No Was critical care preformed (if so, how long)? @ -No Were there social determinants of health that impacted care today? How? (Homelessness, low income, unemployed, alcoholism, drug addiction, tra nsportation, low edu. Level, literacy, decrease access to med. care, long term, rehab)? @ -No Was there de-escalation of care discussed even if they declined? (Discuss DNR or withdrawal of care, Hospice)? @ -No What co-morbidities impacted this encounter? (DM, HTN, Smoking, COPD, CAD, Cancer, CVA, Hep., AIDS, mental health diagnosis, sleep apnea, morbid obesity)? @ -A-fib, dementia Was patient admitted / discharged? @ -Discharged. Lab work obtained and found to be unremarkable. COVID, influenza, and RSV testing negative. Urinalysis negative for signs of infection. CT scan of the brain reveals no acute process. Chest x-ray demonstrates a left lower lobe infiltrate and small effusion. They advised correlation for pneumonia or mild CHF. BNP only 447 and not suggestive of CHF. Patient was given an initial dose of ceftriaxone and azithromycin for pneumonia. We did also do an ambulatory pulse ox, and the patient remained adequate oxygen saturation of 97% and did not feel short of breath. I offered admission due to syncopal episode with the patient's age and associated pneumonia. However, patient's states that he does not do well in hospitals and he would most likely recover better at home. Patient states that he did also start feeling better and was comfortable discharge home. Prescription for azithromycin and albuterol inhaler provided with dosing instructions reviewed. Strict return parameters discussed and he is advised to follow-up with his primary care provider. Undiagnosed new problem with uncertain prognosis? @ -None Drug Therapy requiring intensive monitoring for toxicity (Heparin, Nitro, Insulin, Cardizem)? @ -None Were any procedures done? @ -None Diagnosis/symptom? @ -Pneumonia, Syncope Acute, or Chronic, or Acute on Chronic? @ -Acute Uncomplicated (without systemic symptoms) or Complicated (systemic symptoms)? @ -Complicated Side effects of treatment? @ -None Exacerbation, Progression, or Severe Exacerbation] @ -Not applicable Poses a threat to life or bodily function? @ -This will depend on how symptoms progress. Return precautions reviewed in depth, the patient is instructed to return to the emergency department with any new, worsening, or concerning symptoms. Patient verbalized understanding. This case was discussed in detail with the attending ED physician, Dr. Lindsay. Presentation, findings, and treatment plan discussed in detail as well. - Lab Data Result diagrams: 12/13/23 08:48 12/13/23 08:48 Lab Results 12/13/23 12/13/23 12/13/23 Range/Units 08:48 08:48 08:48 WBC 9.7 (3.8-10.6) k/uL RBC 5.52 (4.30-5.90) m/uL Hgb 18.1 H (13.0-17.5) gm/dL Hct 53.9 H (39.0-53.0) % MCV 97.7 (80.0-100.0) fL MCH 32.9 (25.0-35.0) pg MCHC 33.6 (31.0-37.0) g/dL RDW 13.1 (11.5-15.5) % Plt Count 176 (150-450) k/uL MPV 8.6 Neutrophils % 58 % Lymphocytes % 33 % Monocytes % 5 % Eosinophils % 1 % Basophils % 1 % Neutrophils # 5.6 (1.3-7.7) k/uL Lymphocytes # 3.2 (1.0-4.8) k/uL Monocytes # 0.5 (0-1.0) k/uL Eosinophils # 0.1 (0-0.7) k/uL Basophils # 0.1 (0-0.2) k/uL PT 16.8 H (10.0-12.5) sec INR 1.6 H (<1.2) APTT 32.3 H (22.0-30.0) sec Sodium 142 (137-145) mmol/L Potassium 3.8 (3.5-5.1) mmol/L Chloride 108 H (98-107) mmol/L Carbon Dioxide 23 (22-30) mmol/L Anion Gap 11 mmol/L BUN 22 H (9-20) mg/dL Creatinine 0.90 (0.66-1.25) mg/dL Est GFR (CKD-EPI)AfAm >90 (>60 ml/min/1.73 sqM) Est GFR (CKD-EPI)NonAf 80 (>60 ml/min/1.73 sqM) Glucose 97 (74-99) mg/dL Calcium 9.4 (8.4-10.2) mg/dL Total Bilirubin 1.0 (0.2-1.3) mg/dL AST 39 (17-59) U/L ALT 34 (4-49) U/L Alkaline Phosphatase 133 H (38-126) U/L Troponin I (0.000-0.034) ng/mL NT-Pro-B Natriuret Pep 447 pg/mL Total Protein 7.3 (6.3-8.2) g/dL Albumin 4.4 (3.5-5.0) g/dL Urine Color Urine Appearance (Clear) Urine pH (5.0-8.0) Ur Specific [place] (1.001-1.035) Urine Protein (Negative) Urine Glucose (UA) (Negative) Urine Ketones (Negative) Urine Blood (Negative) Urine Nitrite (Negative) Urine Bilirubin (Negative) Urine Urobilinogen (<2.0) mg/dL Ur Leukocyte Esterase (Negative) Urine RBC (0-5) /hpf Urine WBC (0-5) /hpf Ur Squamous Epith Cells (0-4) /hpf Urine Mucus (None) /hpf Influenza Type A (PCR) (Not Detectd) Influenza Type B (PCR) (Not Detectd) RSV (PCR) (Not Detectd) SARS-CoV-2 (PCR) (Not Detectd) 12/13/23 12/13/23 12/13/23 Range/Units 08:48 08:48 10:59 WBC (3.8-10.6) k/uL RBC (4.30-5.90) m/uL Hgb (13.0-17.5) gm/dL Hct (39.0-53.0) % MCV (80.0-100.0) fL MCH (25.0-35.0) pg MCHC (31.0-37.0) g/dL RDW (11.5-15.5) % Plt Count (150-450) k/uL MPV Neutrophils % % Lymphocytes % % Monocytes % % Eosinophils % % Basophils % % Neutrophils # (1.3-7.7) k/uL Lymphocytes # (1.0-4.8) k/uL Monocytes # (0-1.0) k/uL Eosinophils # (0-0.7) k/uL Basophils # (0-0.2) k/uL PT (10.0-12.5) sec INR (<1.2) APTT (22.0-30.0) sec Sodium (137-145) mmol/L Potassium (3.5-5.1) mmol/L Chloride (98-107) mmol/L Carbon Dioxide (22-30) mmol/L Anion Gap mmol/L BUN (9-20) mg/dL Creatinine (0.66-1.25) mg/dL Est GFR (CKD-EPI)AfAm (>60 ml/min/1.73 sqM) Est GFR (CKD-EPI)NonAf (>60 ml/min/1.73 sqM) Glucose (74-99) mg/dL Calcium (8.4-10.2) mg/dL Total Bilirubin (0.2-1.3) mg/dL AST (17-59) U/L ALT (4-49) U/L Alkaline Phosphatase (38-126) U/L Troponin I <0.012 (0.000-0.034) ng/mL NT-Pro-B Natriuret Pep pg/mL Total Protein (6.3-8.2) g/dL Albumin (3.5-5.0) g/dL Urine Color Yellow Urine Appearance Clear (Clear) Urine pH 7.0 (5.0-8.0) Ur Specific [place] 1.018 (1.001-1.035) Urine Protein Trace H (Negative) Urine Glucose (UA) Negative (Negative) Urine Ketones Negative (Negative) Urine Blood Small H (Negative) Urine Nitrite Negative (Negative) Urine Bilirubin Negative (Negative) Urine Urobilinogen <2.0 (<2.0) mg/dL Ur Leukocyte Esterase Trace H (Negative) Urine RBC 44 H (0-5) /hpf Urine WBC 22 H (0-5) /hpf Ur Squamous Epith Cells <1 (0-4) /hpf Urine Mucus Rare H (None) /hpf Influenza Type A (PCR) Not Detected (Not Detectd) Influenza Type B (PCR) Not Detected (Not Detectd) RSV (PCR) Not Detected (Not Detectd) SARS-CoV-2 (PCR) Not Detected (Not Detectd) - Radiology Data Radiology results: report reviewed, image reviewed Disposition Clinical Impression: Pneumonia, Syncope Disposition: HOME SELF-CARE Instructions (If sedation given, give patient instructions): Community Acquired Pneumonia (ED) Additional Instructions: Return to the emergency department with any new, worsening, or concerning symptoms. Take the antibiotic as prescribed for 5 days. Use the albuterol inhaler every 4-6 hours as needed for shortness of breath. Follow up with your primary care provider in 1-2 days. Prescriptions: Albuterol Sulfate [Albuterol Sulfate Hfa] 1 puff PO Q4-6H PRN #8.5 gm PRN Reason: Shortness Of Breath Azithromycin [Zithromax] 250 mg PO DIRECTED 5 Days #6 tab Is patient prescribed a controlled substance at d/c from ED?: No Referrals: Coty Rose MD [Primary Care Provider] - 1-2 days Time of Disposition: 12:25
[2023-12-13] MEDS: SODIUM CHLORIDE 0.9% 1,000 ML IV STA (08:52)
[2023-12-13 08:57] LABS: Basophils # (A) 0.1 k/uL (0-0.2); Basophils % (A) 1 %; Eosinophils # (A) 0.1 k/uL (0-0.7); Eosinophils % (A) 1 %; HCT 53.9 % (39.0-53.0); HGB 18.1 gm/dL (13.0-17.5); Lymphocytes # (A) 3.2 k/uL (1.0-4.8); Lymphocytes % (A) 33 %; MCH 32.9 pg (25.0-35.0); MCHC 33.6 g/dL (31.0-37.0); MCV 97.7 fL (80.0-100.0); Mean Platelet Volume 8.6; Monocytes # (A) 0.5 k/uL (0-1.0); Monocytes % (A) 5 %; Neutrophils # (A) 5.6 k/uL (1.3-7.7); Neutrophils % (A) 58 %; Platelet Count 176 k/uL (150-450); RBC 5.52 m/uL (4.30-5.90); RDW 13.1 % (11.5-15.5); WBC 9.7 k/uL (3.8-10.6)
--- NOTE | 2023-12-13 09:11 | XR ---
EXAMINATION TYPE: XR chest 2V DATE OF EXAM: 12/13/2023 COMPARISON: 08/15/2023 TECHNIQUE: PA and lateral views submitted. HISTORY: Syncope FINDINGS: A limited inspiration with left lower lobe infiltrate and small effusion. No pneumothorax. Difficult to exclude mild venous congestion. Heart size stable. Osseous structures demonstrate degenerative dorene nge of the spine. IMPRESSION: 1. Left lower lobe infiltrate and small effusion correlate for pneumonia otherwise consider mild CHF.
[2023-12-13 09:12] LABS: ALT 34 U/L (4-49); AST 39 U/L (17-59); African American GFR (CKD) >90 (>60 ml/min/1.73 sqM); Albumin 4.4 g/dL (3.5-5.0); Alkaline Phosphatase 133 U/L (38-126); Anion Gap 11 mmol/L; Blood Urea Nitrogen 22 mg/dL (9-20); Calcium 9.4 mg/dL (8.4-10.2); Carbon Dioxide 23 mmol/L (22-30); Chloride 108 mmol/L (98-107); Glucose 97 mg/dL (74-99); Non-African American GFR(CKD) 80 (>60 ml/min/1.73 sqM); Potassium 3.8 mmol/L (3.5-5.1); Sodium 142 mmol/L (137-145); Total Protein 7.3 g/dL (6.3-8.2)
[2023-12-13 09:21] LABS: INR 1.6 (<1.2); NT-Pro-B-Type Natriuretic Pept 447 pg/mL; Partial Thromboplastin Time 32.3 sec (22.0-30.0); Prothrombin Time 16.8 sec (10.0-12.5)
--- NOTE | 2023-12-13 09:24 | CT ---
EXAMINATION TYPE: CT brain wo con DATE OF EXAM: 12/13/2023 COMPARISON: 1223 HISTORY: Syncope CT DLP: 1138.[address] of the brain was performed. The ventricles, basal cisterns and sulci overlying the cerebral convexities demonstrate mild enlargem ent. There is no evidence for intracranial hemorrhage or sulcal effacement. There is decreased attenuation about the periventricular white matter and deep white matter of both c erebral hemispheres, compatible with chronic small vessel ischemia. Differential diagnosis does inclu de demyelination. No mass effects are seen.No midline shift. Osseous calvarium is intact. If symptoms persist consider MRI. IMPRESSION: 1. Age related atrophic and chronic small vessel ischemic change without acute intracranial process s een at this time.
[2023-12-13 11:22] LABS: Appearance,Urine Clear (Clear); Bilirubin,Urine Negative (Negative); Blood,Urine Small (Negative); Color,Urine Yellow; Glucose,Urine (UA) Negative (Negative); Ketones,Urine Negative (Negative); Leukocyte Esterase,Urine Trace (Negative); Mucus,Urine Rare /hpf; Nitrite,Urine Negative (Negative); Protein,Urine Trace (Negative); RBC,Urine 44 /hpf (0-5); Specific Gravity,Urine 1.018 (1.001-1.035); Squamous Epithelial Cell,Urine <1 /hpf (0-4); Urobilinogen,Urine <2.0 mg/dL (<2.0); WBC,Urine 22 /hpf (0-5)
[2023-12-13 12:42] VITALS: BP 126/74; PULSE 80
[2023-12-14] MEDS ORDERED: AZITHROMYCIN 500 MG TAB PO SCH (09:00)
== END 2023-12-13 12:40 | disposition home or self-care (01) ==
LOC: EC 07:55
DX: J18.9 Pneumonia, unspecified organism (principal); R55 Syncope and collapse; I67.82 Cerebral ischemia; I48.91 Unspecified atrial fibrillation; Z79.82 Long term (current) use of aspirin; Z88.0 Allergy status to penicillin; Z88.1 Allergy status to other antibiotic agents; Z20.822 Contact with and (suspected) exposure to COVID-19
CPT/HCPCS: 36415; 93005; 83880; 80053; 87449; 84484; 85025; 85610; 85730; 81001; 87040; 87636; 71046; 70450; 99285; 96365; 96361; J0696

== ENCOUNTER 2024-08-21 19:48 | Emergency (ER) | payer MEDICARE ==
[2024-08-21 20:00] VITALS: TEMP 98
[2024-08-21 20:17] LABS: Appearance,Urine Cloudy (Clear); Color,Urine Red
--- NOTE | 2024-08-21 20:17 | ED ---
Male Urogenital HPI - General Source: patient, RN notes reviewed Mode of arrival: ambulatory Limitations: no limitations <Fani George - Last Filed: 08/21/24 20:16> <Kina Ledezma - Last Filed: 08/22/24 19:10> - General Chief complaint: Urogenital Stated complaint: Urinating blood Time Seen by Provider: 08/21/24 20:10 - History of Present Illness Initial comments: Quick Note: This is an 83-year-old male who presents to the emergency department for hematuria. States that he started noticing blood in his urine around 5 PM this evening. Denies any pain with this. Denies any history of similar problems in the past. He is on Coumadin for A-fib. (Fani George) This is an 83-year-old male with a history of dementia presents emergency department with his for chief complaint of hematuria. states and patient states that he began to notice blood in his urine approximately 1700 this evening. He denies any pain with urination, odor, flank pain. states that patient has been stating that he is needed to use the bathroom more frequently however passes a small bit of blood and right blood clot. Patient is on Coumadin for A-fib. Denies history of kidney stones. (Kina Ledezma) - Related Data Home Medications Medication Instructions Recorded Confirmed Furosemide [Lasix] 20 mg PO MOTH 05/31/16 08/15/23 Diltiazem Cd [Cardizem CD] 240 mg PO DAILY 12/13/22 08/15/23 Aspirin EC [Ecotrin Low Dose] 81 mg PO DAILY 08/15/23 08/15/23 Cholecalciferol [Vitamin D3 (25 50 mcg PO DAILY 08/15/23 08/15/23 Mcg = 1000 Iu)] Memantine [Namenda] 5 mg PO DAILY 08/15/23 08/15/23 Rosuvastatin Calcium 40 mg PO DAILY 08/15/23 08/15/23 Previous Rx's Medication Instructions Recorded Albuterol Inhaler [Ventolin Hfa 2 puff INHALATION RT-QID PRN #1 12/17/22 Inhaler] each Ascorbic Acid [Vitamin C] 500 mg PO DAILY #30 tab 12/17/22 Cephalexin [Keflex] 500 mg PO Q8HR 1 Days #7 cap 08/20/23 Pantoprazole Sodium [Protonix] 40 mg PO AC-BRKFST 30 Days #30 tab 08/20/23 Warfarin [Coumadin] 2.5 mg PO DAILY 30 Days #30 tab 08/20/23 levETIRAcetam [Keppra] 500 mg PO Q12HR 30 Days #60 tab 08/20/23 Albuterol Sulfate [Albuterol 1 puff PO Q4-6H PRN #8.5 gm 12/13/23 Sulfate Hfa] Azithromycin [Zithromax] 250 mg PO DIRECTED 5 Days #6 tab 12/13/23 Nitrofurantoin Monohyd/M-Cryst 100 mg PO Q12HR #13 cap 08/22/24 [Macrobid] Allergies Allergy/AdvReac Type Severity Reaction Status Date / Time levofloxacin [From Levaquin] Allergy Leg Verified 08/21/24 20:00 Swelling Penicillins Allergy Unknown Verified 08/21/24 20:00 Review of Systems ROS Other: All systems not noted in ROS Statement are negative. <Fani George - Last Filed: 08/21/24 20:16> ROS Other: All systems not noted in ROS Statement are negative. <Kina Ledezma - Last Filed: 08/22/24 19:10> ROS Statement: Those systems with pertinent positive or pertinent negative responses have been documented in the HPI. Past Medical History Past Medical History: Atrial Fibrillation, Memory Impairment Additional Past Medical History / Comment(s): bronchitis, falls History of Any Multi-Drug Resistant Organisms: None Reported Past Surgical History: Hernia Repair Past Anesthesia/Blood Transfusion Reactions: No Reported Reaction Past Psychological History: No Psychological Hx Reported Smoking Status: Never smoker Past Alcohol Use History: None Reported Past Drug Use History: None Reported <Fani George - Last Filed: 08/21/24 20:16> General Exam Limitations: no limitations <Fani George - Last Filed: 08/21/24 20:16> General appearance: alert, in no apparent distress ENT exam: Present: normal exam, mucous membranes moist Neck exam: Present: normal inspection. Absent: tenderness, meningismus, lymphadenopathy Respiratory exam: Present: normal lung sounds bilaterally. Absent: respiratory distress, wheezes, rales, rhonchi, stridor Cardiovascular Exam: Present: regular rate, normal rhythm, normal heart sounds. Absent: systolic murmur, diastolic murmur, rubs, gallop, clicks GI/Abdominal exam: Present: soft, normal bowel sounds. Absent: distended, tenderness, guarding, rebound, rigid Extremities exam: Present: normal inspection, full ROM, normal capillary refill. Absent: tenderness, pedal edema, joint swelling, calf tenderness Back exam: Present: normal inspection Skin exam: Present: warm, dry, intact, normal color. Absent: rash <Kina Ledezma - Last Filed: 08/22/24 19:10> - General Exam Comments Initial Comments: Visual Physical Exam Vital signs reviewed General: Well-appearing, nontoxic, no acute distress. Head: Normocephalic, atraumatic Eyes: PERRLA, EOMI ENT: Airway patent Chest: Nonlabored breathing Skin: No visual rash, normal skin tone Neuro: Alert and oriented 3 Musculoskeletal: No gross abnormalities (Fani George) Course Vital Signs 08/21/24 08/22/24 19:58 00:24 Temperature 98 F Pulse Rate 89 82 Respiratory 18 18 Rate Blood Pressure 116/63 109/72 O2 Sat by Pulse 97 96 Oximetry Medical Decision Making <Fani George - Last Filed: 08/21/24 20:16> - Lab Data Result diagrams: 08/21/24 21:18 08/21/24 21:18 <Kina Ledezma - Last Filed: 08/22/24 19:10> - Medical Decision Making I performed the QuickNote portion of this chart. Signed Fani George PA-C. (Fani George) Was pt. sent in by a medical professional or institution ([facility], CLINICAL INVESTIGATOR, urgent care, hospital, or long term...) When possible be specific @ -No Did you speak to anyone other than the patient for history (EMS, parent, family, police, friend...)? What history was obtained from this source @ -Spoke to the patient's at bedside for majority of history due to patient's advanced stages of dementia. See HPI for further details. Did you review nursing and triage notes (agree or disagree)? Why? @ -I reviewed and agree with nursing and triage notes Were old charts reviewed (outside hosp., previous admission, EMS record, old EKG, old radiological studies, urgent care reports/EKG's, long term records)? Report findings @ -No old charts were reviewed Differential Diagnosis (chest pain, altered mental status, abdominal pain women, abdominal pain men, vaginal bleeding, weakness, fever, dyspnea, syncope, headache, dizziness, GI bleed, back pain, seizure, CVA, palpatations, mental health, musculoskeletal)? @ -Differential Abdominal Pain Men: Appendicitis, cholecystitis, diverticulosis, ischemic bowel, pancreatitis, hepatitis, UTI, gastroenteritis, AAA, incarcerated hernia, bowel obstruction, constipation, inflammatory bowel, hepatitis, peptic ulcer disease, splenic infarction, perforated viscus, testicular torsion, this is not meant to be an all-inclusive list EKG interpreted by me (3pts min.). @ -None X-rays interpreted by me (1pt min.). @ -None done CT interpreted by me (1pt min.). @ -None done U/S interpreted by me (1pt. min.). @ -Ultrasound of the kidneys, ureters, bladder reveals abnormal appearance of the urinary bladder that is concerning for neoplasm, recommend consultation to urology. What testing was considered but not performed or refused? (CT, X-rays, U/S, labs)? Why? @ -None What meds were considered but not given or refused? Why? @ -None Did you discuss the management of the patient with other professionals (professionals i.e. , PA, CLINICAL INVESTIGATOR, lab, RT, psych nurse, family welfare social work professor, environmental research project manager, teacher, fundraising officer, returned case inspector)? Give summary @ -No Was smoking cessation discussed for >3mins.? @ -No Was critical care preformed (if so, how long)? @ -No Were there social determinants of health that impacted care today? How? (Homelessness, low income, unemployed, alcoholism, drug addiction, t ransportation, low edu. Level, literacy, decrease access to med. care, senior care, rehab)? @ -No Was there de-escalation of care discussed even if they declined (Discuss DNR or withdrawal of care, Hospice)? DNR status @ -No What co-morbidities impacted this encounter? (DM, HTN, Smoking, COPD, CAD, Cancer, CVA, ARF, Chemo, Hep., AIDS, mental health diagnosis, sleep apnea, morbid obesity)? @ -None Was patient admitted / discharged? Hospital course, mention meds given and route, prescriptions, significant lab abnormalities, going to OR and other pertinent info. @ -discharged. 83-year-old male with hematuria. Patient was originally evaluated in the emergency department waiting room as a quick note. On my evaluation the patient is resting comfortably no signs acute distress. Overall patient is a poor historian due to history of dementia and majority of history was obtained from patient's . There is no CVA tenderness on examination. Vitals are stable. CBC reveals mild leukocytosis 11.8, INR 2.5 therapeutic on warfarin, CMP unremarkable, urinalysis remarkable for greater than 182 red blood cells with a cloudy appearance and red color. Patient will be provided with dose of Macrobid in the emergency department for concern for urinary tract infection due to mild leukocytosis via laboratory studies and increase in urinary frequency. Urine will be sent for culture to determine if there is bacterial growth. Additionally, patient is provided with referral to urology and instructed to contact office in the morning to follow-up for painless hematuria. All questions answered at bedside and strict return parameters pamella with the patient and he is verbalized understanding in addition to the patient's . Discussed with Dr. Lopez Undiagnosed new problem with uncertain prognosis? @ -No Drug Therapy requiring intensive monitoring for toxicity (Heparin, Nitro, Insulin, Cardizem)? @ -No Were any procedures done? @ -No Diagnosis/symptom? @ -urinary tract infection, painless hematuria Acute, or Chronic, or Acute on Chronic? @ -Acute Uncomplicated (without systemic symptoms) or Complicated (systemic symptoms)? @ -uncomplicated Side effects of treatment? @ -No Exacerbation, Progression, or Severe Exacerbation? @ -No Poses a threat to life or bodily function? How? (Chest pain, [place], [place], pneumonia, PE, COPD, DKA, ARF, appy, cholecystitis, CVA, Diverticulitis, Homicidal, Suicidal, threat to staff... and all critical care pts) @ -No (Kina Ledezma) - Lab Data Lab Results 08/21/24 08/21/24 08/21/24 Range/Units 20:01 21:18 21:18 WBC 11.8 H (3.8-10.6) k/uL RBC 5.21 (4.30-5.90) m/uL Hgb 16.6 (13.0-17.5) gm/dL Hct 51.3 (39.0-53.0) % MCV 98.3 (80.0-100.0) fL MCH 31.8 (25.0-35.0) pg MCHC 32.4 (31.0-37.0) g/dL RDW 12.9 (11.5-15.5) % Plt Count 177 (150-450) k/uL MPV 8.6 Neutrophils % 60 % Lymphocytes % 29 % Monocytes % 6 % Eosinophils % 2 % Basophils % 1 % Neutrophils # 7.0 (1.3-7.7) k/uL Lymphocytes # 3.4 (1.0-4.8) k/uL Monocytes # 0.7 (0-1.0) k/uL Eosinophils # 0.2 (0-0.7) k/uL Basophils # 0.1 (0-0.2) k/uL PT 25.1 H (10.0-12.5) sec INR 2.5 H (<1.2) APTT 33.5 H (22.0-30.0) sec Sodium (137-145) mmol/L Potassium (3.5-5.1) mmol/L Chloride (98-107) mmol/L Carbon Dioxide (22-30) mmol/L Anion Gap mmol/L BUN (9-20) mg/dL Creatinine (0.66-1.25) mg/dL Est GFR (CKD-EPI)AfAm (>60 ml/min/1.73 sqM) Est GFR (CKD-EPI)NonAf (>60 ml/min/1.73 sqM) Glucose (74-99) mg/dL Calcium (8.4-10.2) mg/dL Total Bilirubin (0.2-1.3) mg/dL AST (17-59) U/L ALT (4-49) U/L Alkaline Phosphatase (38-126) U/L Total Protein (6.3-8.2) g/dL Albumin (3.5-5.0) g/dL Urine Color Red Urine Appearance Cloudy (Clear) Urine RBC >182 H (0-5) /hpf 08/21/24 Range/Units 21:18 WBC (3.8-10.6) k/uL RBC (4.30-5.90) m/uL Hgb (13.0-17.5) gm/dL Hct (39.0-53.0) % MCV (80.0-100.0) fL MCH (25.0-35.0) pg MCHC (31.0-37.0) g/dL RDW (11.5-15.5) % Plt Count (150-450) k/uL MPV Neutrophils % % Lymphocytes % % Monocytes % % Eosinophils % % Basophils % % Neutrophils # (1.3-7.7) k/uL Lymphocytes # (1.0-4.8) k/uL Monocytes # (0-1.0) k/uL Eosinophils # (0-0.7) k/uL Basophils # (0-0.2) k/uL PT (10.0-12.5) sec INR (<1.2) APTT (22.0-30.0) sec Sodium 140 (137-145) mmol/L Potassium 3.9 (3.5-5.1) mmol/L Chloride 110 H (98-107) mmol/L Carbon Dioxide 25 (22-30) mmol/L Anion Gap 5 mmol/L BUN 26 H (9-20) mg/dL Creatinine 1.05 (0.66-1.25) mg/dL Est GFR (CKD-EPI)AfAm 77 (>60 ml/min/1.73 sqM) Est GFR (CKD-EPI)NonAf 67 (>60 ml/min/1.73 sqM) Glucose 98 (74-99) mg/dL Calcium 9.2 (8.4-10.2) mg/dL Total Bilirubin 0.7 (0.2-1.3) mg/dL AST 37 (17-59) U/L ALT 31 (4-49) U/L Alkaline Phosphatase 114 (38-126) U/L Total Protein 6.7 (6.3-8.2) g/dL Albumin 4.1 (3.5-5.0) g/dL Urine Color Urine Appearance (Clear) Urine RBC (0-5) /hpf Disposition <Fani George - Last Filed: 08/21/24 20:16> Is patient prescribed a controlled substance at d/c from ED?: No Time of Disposition: 00:14 <Patrick Ledezmaoe - Last Filed: 08/22/24 19:10> Clinical Impression: Hematuria, Urinary urgency Disposition: HOME SELF-CARE Condition: Good Instructions (If sedation given, give patient instructions): Hematuria (ED) Additional Instructions: Please return to the Emergency Department if symptoms worsen or any other concerns. Complete full course of antibiotics as prescribed. Recommend that you contact urology office in the morning to schedule follow-up appointment for painless hematuria. Prescriptions: Nitrofurantoin Monohyd/M-Cryst [Macrobid] 100 mg PO Q12HR #13 cap Referrals: Coty Rose MD [Primary Care Provider] - 1-2 days Thanh Bass MD [STAFF PHYSICIAN] - 1-2 days
[2024-08-21 20:29] LABS: RBC,Urine >182 /hpf (0-5)
[2024-08-21 20:43] VITALS: RESP 18
[2024-08-21 21:34] LABS: Basophils # (A) 0.1 k/uL (0-0.2); Basophils % (A) 1 %; Eosinophils # (A) 0.2 k/uL (0-0.7); Eosinophils % (A) 2 %; HCT 51.3 % (39.0-53.0); HGB 16.6 gm/dL (13.0-17.5); Lymphocytes # (A) 3.4 k/uL (1.0-4.8); Lymphocytes % (A) 29 %; MCH 31.8 pg (25.0-35.0); MCHC 32.4 g/dL (31.0-37.0); MCV 98.3 fL (80.0-100.0); Mean Platelet Volume 8.6; Monocytes # (A) 0.7 k/uL (0-1.0); Monocytes % (A) 6 %; Neutrophils % (A) 60 %; Platelet Count 177 k/uL (150-450); RBC 5.21 m/uL (4.30-5.90); RDW 12.9 % (11.5-15.5); WBC 11.8 k/uL (3.8-10.6)
[2024-08-21 21:41] LABS: INR 2.5 (<1.2); Partial Thromboplastin Time 33.5 sec (22.0-30.0); Prothrombin Time 25.1 sec (10.0-12.5)
[2024-08-21 21:51] LABS: ALT 31 U/L (4-49); AST 37 U/L (17-59); African American GFR (CKD) 77 (>60 ml/min/1.73 sqM); Albumin 4.1 g/dL (3.5-5.0); Alkaline Phosphatase 114 U/L (38-126); Anion Gap 5 mmol/L; Blood Urea Nitrogen 26 mg/dL (9-20); Calcium 9.2 mg/dL (8.4-10.2); Carbon Dioxide 25 mmol/L (22-30); Chloride 110 mmol/L (98-107); Glucose 98 mg/dL (74-99); Non-African American GFR(CKD) 67 (>60 ml/min/1.73 sqM); Potassium 3.9 mmol/L (3.5-5.1); Sodium 140 mmol/L (137-145); Total Bilirubin 0.7 mg/dL (0.2-1.3); Total Protein 6.7 g/dL (6.3-8.2)
[2024-08-22] MEDS: NITROFURANTOIN MONOHYD/M-CRYST 100 MG CAP PO STA (00:20)
[2024-08-22 00:26] VITALS: BP 109/72; PULSE 82
--- NOTE | 2024-08-22 03:55 | US ---
EXAMINATION TYPE: US kidneys/renal and bladder DATE OF EXAM: 08/21/2024 COMPARISON: NONE CLINICAL INDICATION: Male, 83 years old with history of hematuria, frequency; gross hematuria TECHNIQUE: Grayscale and color Doppler imaging of the bilateral kidneys and urinary bladder: FINDINGS: EXAM MEASUREMENTS: Right Kidney: 10.8 x 4.7 x 6.2 cm Left Kidney: 11.1 x 4.7 x 5.7 cm Right Kidney: dilated pyramid, otherwise wnl Left Kidney: No hydronephrosis or masses seen Bladder: Diverticulum seen, septations noted, 7.4 x 8.1 x 5.3cm mass-like area seen. Overall picture is abnormally heterogeneous and masslike. 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 Urology consultation is a dvised as soon as feasible. [facility], , 08/22/2024 3:52 AM
== END 2024-08-22 00:40 | disposition home or self-care (01) ==
LOC: EC 19:48
CPT/HCPCS: 36415; 76770; 80053; 81001; 85025; 85610; 85730; 87086; 99284

== ENCOUNTER → 2024-09-11 | Outpatient (CLI) | payer MEDICARE ==
[2024-09-11 19:29] LABS: Appearance,Urine Clear (Clear); Bilirubin,Urine Negative (Negative); Blood,Urine Small (Negative); Color,Urine Yellow (Yellow); Ketones,Urine Negative (Negative); Nitrite,Urine Negative (Negative); Urobilinogen,Urine 0.2 E.U./DL
[2024-09-11 19:32] LABS: Bacteria,Urine None Seen (None Seen)
[2024-09-11 20:06] LABS: Basophils # (A) 0.09 X 10*3/uL (0.00-0.10); Basophils % (A) 0.9 %; Eosinophils # (A) 0.17 X 10*3/uL (0.04-0.35); Eosinophils % (A) 1.7 %; HCT 53.1 % (39.6-50.0); HGB 17.7 g/dL (13.0-17.0); Lymphocytes % (A) 34.4 %; MCH 32.8 pg (27.0-32.0); MCHC 33.3 g/dL (32.0-37.0); MCV 98.3 FL (80.0-97.0); Mean Platelet Volume 11.7 FL (9.5-12.2); Monocytes # (A) 0.75 X 10*3/uL (0.20-1.00); Monocytes % (A) 7.6 %; NRBC Per 100 WBC 0 X 10*3/uL (0.00-0.01); Neutrophils # (A) 5.43 X 10*3/uL (1.80-7.70); Platelet Count 177 X 10*3/uL (140-440); RDW 13.7 % (11.5-14.5); WBC 9.88 X 10*3/uL (4.50-10.00)
[2024-09-12 00:54] LABS: BUN/Creat Ratio 17.27 Ratio (12.00-20.00); Calcium 9.2 mg/dL (8.7-10.3); Carbon Dioxide 16.2 mmol/L (21.6-31.8); Chloride 107 mmol/L (96-109); Glucose 84 mg/dL (70-110); Potassium 4.6 mmol/L (3.5-5.5); Sodium 141 mmol/L (135-145)
== END | disposition home or self-care (01) ==
LOC: LABWHC1 13:49
PROVIDERS: ATTEND Urology
DX: Z01.812 Encounter for preprocedural laboratory examination (principal); D49.4 Neoplasm of unspecified behavior of bladder
CPT/HCPCS: 36415; 80048; 81001; 85025; 87086

== ENCOUNTER 2024-09-19 07:23 | Day surgery (SDC) | payer MEDICARE ==
[~2024-09-19 07:23] MED LIST: HYDROmorphone 0.5 MG/0.5 ML SYRINGE IVP PRN; MIDAZOLAM 2 MG/2 ML VIAL IV PRN
[2024-09-19 07:53] VITALS: TEMP 97.1
[2024-09-19] MEDS: IV FLUID CONTINUATION 1,000 ML IV ONE (08:17)
[2024-09-19] MEDS: LACTATED RINGERS 1,000 ML IV SCH (08:17)
[2024-09-19] MEDS: ONDANSETRON 4 MG/2 ML VIAL IVP ONE (08:22)
--- NOTE | 2024-09-19 08:22 | P.HPIHPCON ---
History of Present Illness H&P Date: 09/19/24 Chief Complaint: Bladder mass This is a 83-year-old male with history of gross hematuria, underwent a cystoscopy that showed evidence of a bladder mass, discussed with him and his given this finding I do recommend proceeding with a TURBT. Risk of bleeding, infection and bladder perforation was discussed in details. They understood all the risk and agreed to proceed Consent for Procedure: I have explained the operation/procedure to the patient, including the risks, benefits, side effects, alternative therapies (including not receiving the proposed treatment or service), the likelihood of the patient achieving his/her goals, and potential recuperation problems for the procedure/sedation/analgesia, as well as any blood products, if indicated. I also explained to the patient the risks, benefits and side effects of the alternatives, as well as the risks related to not receiving the proposed procedure, care, treatment, or services. Past Medical History Past Medical History: Atrial Fibrillation, Dementia, Hyperlipidemia, Memory Impairment Additional Past Medical History / Comment(s): bronchitis, falls History of Any Multi-Drug Resistant Organisms: None Reported Past Surgical History: Hernia Repair Past Anesthesia/Blood Transfusion Reactions: No Reported Reaction Smoking Status: Never smoker Medications and Allergies Home Medications Medication Instructions Recorded Confirmed Type Furosemide [Lasix] 20 mg PO MOTH 05/31/16 09/19/24 History Diltiazem Cd [Cardizem CD] 240 mg PO DAILY 12/13/22 09/19/24 History Ascorbic Acid [Vitamin C] 500 mg PO DAILY #30 tab 12/17/22 09/19/24 Rx Aspirin EC [Ecotrin Low Dose] 81 mg PO DAILY 08/15/23 09/19/24 History Cholecalciferol [Vitamin D3 (25 50 mcg PO DAILY 08/15/23 09/19/24 History Mcg = 1000 Iu)] Memantine [Namenda] 5 mg PO DAILY 08/15/23 09/19/24 History Rosuvastatin Calcium 40 mg PO DAILY 08/15/23 09/19/24 History Warfarin [Coumadin] 2.5 mg PO DAILY 30 Days #30 tab 08/20/23 09/19/24 Rx levETIRAcetam [Keppra] 500 mg PO Q12HR 30 Days #60 tab 08/20/23 09/19/24 Rx Allergies Allergy/AdvReac Type Severity Reaction Status Date / Time levofloxacin [From Levaquin] Allergy Leg Verified 09/19/24 07:43 Swelling Penicillins Allergy Unknown Verified 09/19/24 07:43 Surgical - Exam Vital Signs Temp Pulse Resp BP Pulse Ox 97.1 F L 69 16 120/80 97 09/19/24 07:52 09/19/24 07:52 09/19/24 07:52 09/19/24 07:52 09/19/24 07:52 - General no distress, no pain - Eyes normal ocular movement, no pale - ENT normal nares, normal mucosa - Respiratory normal expansion, normal respiratory effort - Abdomen Abdomen: soft, non tender Assessment and Plan Assessment: OR for TURBT
[2024-09-19] MEDS: DEXAMETHASONE SOD PHOSPHATE 4 MG/ML 1 ML VIAL IV ONE (08:23)
[2024-09-19] MEDS ORDERED: ROCURONIUM 10 MG/ML (5 ML VIAL) IV ONE (08:31)
[2024-09-19] MEDS ORDERED: GLYCOPYRROLATE 0.2 MG/ML 2 ML VIAL ONE (08:31)
[2024-09-19] MEDS ORDERED: SUCCINYLCHOLINE CHLORIDE 200 MG/10 ML VIAL IV ONE (08:31)
[2024-09-19] MEDS ORDERED: PROPOFOL 10 MG/ML 20 ML VIAL IV ONE (08:31)
[2024-09-19] MEDS ORDERED: NEOSTIGMINE 1 MG/ML 10 ML VIAL ONE (08:31)
[2024-09-19] MEDS ORDERED: ePHEDrine 50 MG/ML 1 ML VIAL ONE (08:31)
[2024-09-19] MEDS ORDERED: LIDOCAINE 1% INJ 10MG/ML (20 ML MDV) ONE (08:31)
[2024-09-19] MEDS ORDERED: fentaNYL (PF) 50 MCG/ML 2 ML AMP ONE (08:31)
[2024-09-19 08:47] LABS: INR 1.1 (<1.2); Partial Thromboplastin Time 26.9 sec (22.0-30.0)
--- NOTE | 2024-09-19 10:20 | P.OP ---
Date of Procedure: 09/19/24 Preoperative Diagnosis: Bladder tumor Postoperative Diagnosis: Same Procedure(s) Performed: TURBT (large) Implants: none Anesthesia: JACE Surgeon: Marcin Allen Estimated Blood Loss (ml): 50 Pathology: other (Bladder tumor) Condition: stable Disposition: PACU Indications for Procedure: This is a 83-year-old male with history of gross hematuria, underwent a cystoscopy that showed evidence of a bladder mass, discussed with him and his given this finding I do recommend proceeding with a TURBT. Risk of bleeding, infection and bladder perforation was discussed in details. 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 He was prepped and draped in sterile fashion placed in dorsolithotomy position. Patient had a narrowing at the navicularis fossa this was dilated using the [place] sounds starting at 20 [address] and going all the way up to 28. At this time resectoscope with a 25 Swiss sheath was inserted per urethra, cystoscopy was performed which showed extensive papillary tumor involving the entire right lateral wall extending into the right side of the dome, of note patient had multiple bladder diverticuli and there was multiple tumors throughout this diverticulitis, tumor was completely resected, area of resection was fulgurated. Caution was taken when resecting the tumor within the diverticuli given the risk of perforation, there was no evidence of bladder perforation at the end of the resection, patient abdomen was soft at the end of the case. Repeat cystoscopy showed no evidence of bleeding or any residual tumor, note the right ureteral orifice could not be clearly visualized, but caution was used not to use cautery at that area to prevent stenosis. At this time a 20 Swiss Lombardo was placed with return of clear urine. Patient tolerated procedure well was taken to the recovery in stable condition
[2024-09-19 10:58] VITALS: RESP 16
[2024-09-19 11:38] VITALS: BP 126/76; PULSE 72
== END 2024-09-19 12:21 | disposition home or self-care (01) ==
LOC: OR 07:23
PROVIDERS: ATTEND Urology
DX: C67.8 Malignant neoplasm of overlapping sites of bladder (principal); I48.91 Unspecified atrial fibrillation; E78.5 Hyperlipidemia, unspecified; F03.90 Unspecified dementia, unspecified severity, without behavioral disturbance, psychotic disturbance, mood disturbance, and anxiety; Z79.82 Long term (current) use of aspirin; Z79.01 Long term (current) use of anticoagulants; Z79.899 Other long term (current) drug therapy; Z91.81 History of falling; Z88.1 Allergy status to other antibiotic agents; Z88.0 Allergy status to penicillin
CPT/HCPCS: 52240; 85610; 85730; 88307; J0330; J1100; J2710; J0690; J2405; J2003; J3010; J2704; J1596

== ENCOUNTER 2024-09-23 22:33 | Observation (INO) | payer MEDICARE ==
--- NOTE | 2024-09-23 22:49 | ED ---
Male Urogenital HPI <FranciscoJuanita - Last Filed: 09/23/24 22:48> - General Source: RN notes reviewed, old records reviewed Limitations: altered mental status, physical limitation - History of Present Illness MD Complaint: dysuria, other (Dysuria with recent retention and surgery) -: days(s) Severity: severe Severity scale (1-10): 8 Consistency: constant Improves with: urination Worsens with: urination Reports: urinary retention, blood in urine <Jeffy Harley - Last Filed: 09/24/24 21:23> - General Stated complaint: post op issues Time Seen by Provider: 09/23/24 22:48 - History of Present Illness Initial comments: Quick [id number] male presenting with family for generalized weakness status post bladder surgery 4 days ago. 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 States since the surgery, patient has b een very weak. She also admits urinary frequency. States she removed his Lombardo catheter. (Juanita Singh) This is an 83-year-old female underlying dementia with bladder surgery 4 days ago, Lombardo catheter removed today with significant hematuria since, increased frequency, increased weakness with falls and inability to ambulate (Jeffy Harley) - Related Data Home Medications Medication Instructions Recorded Confirmed Furosemide [Lasix] 20 mg PO MOTH 05/31/16 09/24/24 Diltiazem Cd [Cardizem CD] 240 mg PO DAILY 12/13/22 09/24/24 Aspirin EC [Ecotrin Low Dose] 81 mg PO DAILY 08/15/23 09/24/24 Cholecalciferol [Vitamin D3 (25 50 mcg PO DAILY 08/15/23 09/24/24 Mcg = 1000 Iu)] Memantine [Namenda] 5 mg PO DAILY 08/15/23 09/24/24 Rosuvastatin Calcium 40 mg PO DAILY 08/15/23 09/24/24 Warfarin [Coumadin] 2.5 mg PO DIRECTED 09/24/24 09/24/24 Previous Rx's Medication Instructions Recorded Ascorbic Acid [Vitamin C] 500 mg PO DAILY #30 tab 12/17/22 levETIRAcetam [Keppra] 500 mg PO Q12HR 30 Days #60 tab 08/20/23 Allergies Allergy/AdvReac Type Severity Reaction Status Date / Time levofloxacin [From Levaquin] Allergy Leg Verified 09/24/24 09:30 Swelling Penicillins Allergy Unknown Verified 09/24/24 09:30 Review of Systems ROS Other: All systems not noted in ROS Statement are negative. <Juanita Singh - Last Filed: 09/23/24 22:48> ROS Other: All systems not noted in ROS Statement are negative. <Jeffy Harley - Last Filed: 09/24/24 21:23> ROS Statement: Those systems with pertinent positive or pertinent negative responses have been documented in the HPI. Past Medical History Past Medical History: Atrial Fibrillation, Dementia, Hyperlipidemia, Memory Impairment Additional Past Medical History / Comment(s): bronchitis, falls History of Any Multi-Drug Resistant Organisms: None Reported Past Surgical History: Hernia Repair Past Anesthesia/Blood Transfusion Reactions: No Reported Reaction Smoking Status: Never smoker <Juanita Singh - Last Filed: 09/23/24 22:48> General Exam <Juanita Singh - Last Filed: 09/23/24 22:48> Limitations: altered mental status General appearance: alert, anxious, lethargic, in distress Head exam: Present: atraumatic, normocephalic, normal inspection Eye exam: Present: normal appearance, PERRL, EOMI. Absent: scleral icterus, conjunctival injection, periorbital swelling ENT exam: Present: normal exam, mucous membranes moist Neck exam: Present: normal inspection. Absent: tenderness, meningismus, lymphadenopathy Respiratory exam: Present: normal lung sounds bilaterally. Absent: respiratory distress, wheezes, rales, rhonchi, stridor Cardiovascular Exam: Present: tachycardia, irregular rhythm, normal heart sounds. Absent: systolic murmur, diastolic murmur, rubs, gallop, clicks GI/Abdominal exam: Present: soft, normal bowel sounds. Absent: distended, tenderness, guarding, rebound, rigid Extremities exam: Present: normal inspection, full ROM, normal capillary refill. Absent: tenderness, pedal edema, joint swelling, calf tenderness Back exam: Present: normal inspection Neurological exam: Present: alert, oriented X3, CN II-XII intact Psychiatric exam: Present: normal affect, normal mood Skin exam: Present: warm, dry, intact, normal color. Absent: rash <Jeffy Harley - Last Filed: 09/24/24 21:23> - General Exam Comments Initial Comments: Visual Physical Exam General: Well-appearing, nontoxic, no acute distress. Head: Normocephalic, atraumatic Eyes: PERRLA, EOMI ENT: Airway patent Chest: Nonlabored breathing Skin: No visual rash, normal skin tone Neuro: Alert and oriented 3 Musculoskeletal: No gross abnormalities (Juanita Singh) Course <Jeffy Harley B - Last Filed: 09/24/24 21:23> Vital Signs 09/23/24 09/24/24 09/24/24 23:01 00:04 00:10 Temperature 98.0 F Pulse Rate 138 H 156 H 130 H Respiratory 26 H 16 25 H Rate Blood Pressure 133/79 134/98 134/98 O2 Sat by Pulse 93 L 96 96 Oximetry 09/24/24 09/24/24 09/24/24 00:20 00:30 00:40 Temperature Pulse Rate 125 H 121 H 110 H Respiratory 18 18 21 Rate Blood Pressure 134/98 134/98 131/86 O2 Sat by Pulse 95 94 L 94 L Oximetry 09/24/24 09/24/24 09/24/24 01:00 01:20 01:40 Temperature Pulse Rate 112 H 117 H Respiratory 22 22 Rate Blood Pressure 131/86 129/79 145/105 O2 Sat by Pulse 96 Oximetry 09/24/24 09/24/24 09/24/24 02:00 02:17 02:40 Temperature Pulse Rate 115 H 103 H 103 H Respiratory 28 H 22 21 Rate Blood Pressure 145/105 98/76 111/73 O2 Sat by Pulse 96 91 L Oximetry 09/24/24 09/24/24 09/24/24 03:04 03:30 04:00 Temperature 97.9 F Pulse Rate 123 H 114 H Respiratory 24 22 Rate Blood Pressure 111/65 118/85 O2 Sat by Pulse 95 94 L Oximetry 09/24/24 09/24/24 09/24/24 04:30 05:00 05:30 Temperature Pulse Rate 82 98 96 Respiratory 22 21 21 Rate Blood Pressure 123/91 124/97 102/74 O2 Sat by Pulse 96 94 L 96 Oximetry 09/24/24 09/24/24 09/24/24 06:00 08:39 10:27 Temperature 98.1 F Pulse Rate 103 H 94 92 Respiratory 18 18 18 Rate Blood Pressure 111/84 121/70 106/92 O2 Sat by Pulse 93 L 94 L 93 L Oximetry 09/24/24 09/24/24 09/24/24 12:03 13:08 14:18 Temperature Pulse Rate 81 82 78 Respiratory 18 18 18 Rate Blood Pressure 100/82 110/80 108/66 O2 Sat by Pulse 98 96 96 Oximetry - Reevaluation(s) Reevaluation #1: 09/24/24 05:04 Records reviewed (Jeffy Harley) Reevaluation #2: 09/24/24 05:04 Patient symptoms improved (Jeffy Harley) Reevaluation #3: 09/24/24 05:04 Patient informed of results questions answered (Jeffy Harley) Reevaluation #4: Was pt. sent in by a medical professional or institution (, PA, ELECTRIC LOCOMOTIVE FIRER/FIREMAN, urgent care, hospital, or [facility]...) When possible be specific @ -no Did you speak to anyone other than the patient for history (EMS, parent, family, police, friend...)? What history was obtained from this source @ -no Did you review nursing and triage notes (agree or disagree)? Why? @ -agree Are old charts reviewed (outside hosp., previous admission, EMS record, old EKG, old radiological studies, urgent care reports/EKG's, [facility] records)? Report findings @ -yes Differential Diagnosis (chest pain, altered mental status, abdominal pain women, abdominal pain men, vaginal bleeding, weakness, fever, dyspnea, syncope, headache, dizziness, GI bleed, back pain, seizure, CVA, palpatations, mental health, musculoskeletal)? @ -prior EKG interpreted by me (3pts min.). @ -yes X-rays interpreted by me (1pt min.). @ -yes negative for acute disease CT interpreted by me (1pt min.). @ -Yes negative for acute disease U/S interpreted by me (1pt. min.). @ -no What testing was considered but not performed or refused? (CT, X-rays, U/S, labs)? Why? @ -none What meds were considered but not given or refused? Why? @ -none Did you discuss the management of the patient with other professionals (professionals i.e. , PA, ELECTRIC LOCOMOTIVE FIRER/FIREMAN, lab, RT, psych nurse, social service worker, garment folder, teacher, production officer, showcase trimmer)? Give summary @ -no Was smoking cessation discussed for >3mins.? @ -no Was critical care preformed (if so, how long)? @ -no Were there social determinants of health that impacted care today? How? (Homelessness, low income, unemployed, alcoholism, drug addiction, transportation, low edu. Level, literacy, decrease access to med. care, penitentiary, r ehab)? @ -none Was there de-escalation of care discussed even if they declined (Discuss DNR or withdrawal of care, Hospice)? DNR status @ -no What co-morbidities impacted this encounter? (DM, HTN, Smoking, COPD, CAD, Cancer, CVA, ARF, Chemo, Hep., AIDS, mental health diagnosis, sleep apnea, morbid obesity)? @ -none Was patient admitted / discharged? Hospital course, mention meds given and route , prescriptions, significant lab abnormalities, going to OR and other pertinent info. @ - 83 male with significant A-fib with RVR significant urinary retention and hematuria, falls patient will be admitted for IV antibiotics control of heart rate continued monitoring and PT OT Admitted Undiagnosed new problem with uncertain prognosis? @ -no Drug Therapy requiring intensive monitoring for toxicity (Heparin, Nitro, Insulin, Cardizem)? @ -no Were any procedures done? @ -no Diagnosis/symptom? @ -weakness A-fib with RVR depression Acute, or Chronic, or Acute on Chronic? @ -Acute Uncomplicated (without systemic symptoms) or Complicated (systemic symptoms)? @ -Complicated Side effects of treatment? @ -no Exacerbation, Progression, or Severe Exacerbation? @ -exacerbation Poses a threat to life or bodily function? How? (Chest pain, USA, AR, pneumonia, PE, COPD, DKA, ARF, appy, cholecystitis, CVA, Diverticulitis, Homicidal, Suicidal, threat to staff... and all critical care pts) @ -yes extremes of age (Jeffy Harley) Reevaluation #5: Differential Weakness: Hypoglycemia, shock, sepsis, hyponatremia, anemia, infection, AR, ETOH, adverse medicine reaction, overdose, stroke, this is not meant to be an all-inclusive list. (Roskopp,Jeffy B) - Consultations Consultation #1: Admitting physicians who agreed to admit this patient (Jeffy Harley) Medical Decision Making <Juanita Singh - Last Filed: 09/23/24 22:48> - Lab Data Result diagrams: 09/23/24 23:21 09/23/24 23:27 - EKG Data -: EKG Interpreted by Me (EKG is A-fib RVR 145 QRS 78 QTc 334) - Radiology Data Radiology results: report reviewed (CT brain C-spine chest and pelvis x-ray neg ative for acute disease), image reviewed <Jeffy Harley - Last Filed: 09/24/24 21:23> - Medical Decision Making I completed the quick note portion of this chart signed Juanita Singh PA-C (Juanita Singh) 83 male with significant A-fib with RVR significant urinary retention and hematuria, falls patient will be admitted for IV antibiotics control of heart rate continued monitoring and PT OT (Jeffy Harley) - Lab Data Lab Results 09/23/24 09/23/24 09/23/24 Range/Units 23:21 23:27 23:27 WBC 15.2 H (3.8-10.6) k/uL RBC 4.88 (4.30-5.90) m/uL Hgb 15.8 (13.0-17.5) gm/dL Hct 48.4 (39.0-53.0) % MCV 99.2 (80.0-100.0) fL MCH 32.4 (25.0-35.0) pg MCHC 32.7 (31.0-37.0) g/dL RDW 13.2 (11.5-15.5) % Plt Count 197 (150-450) k/uL MPV 8.0 Neutrophils % 72 % Lymphocytes % 17 % Monocytes % 7 % Eosinophils % 1 % Basophils % 0 % Neutrophils # 11.0 H (1.3-7.7) k/uL Lymphocytes # 2.6 (1.0-4.8) k/uL Monocytes # 1.0 (0-1.0) k/uL Eosinophils # 0.2 (0-0.7) k/uL Basophils # 0.1 (0-0.2) k/uL PT (10.0-12.5) sec INR (<1.2) APTT (22.0-30.0) sec Sodium 136 L (137-145) mmol/L Potassium 4.3 (3.5-5.1) mmol/L Chloride 110 H (98-107) mmol/L Carbon Dioxide 17 L (22-30) mmol/L Anion Gap 9 mmol/L BUN 31 H (9-20) mg/dL Creatinine 1.41 H (0.66-1.25) mg/dL Est GFR (CKD-EPI)AfAm 54 (>60 ml/min/1.73 sqM) Est GFR (CKD-EPI)NonAf 47 (>60 ml/min/1.73 sqM) Glucose 105 H (74-99) mg/dL Plasma Lactic Acid Hernan (0.7-2.0) mmol/L Calcium 8.7 (8.4-10.2) mg/dL Phosphorus 2.7 (2.5-4.5) mg/dL Magnesium 2.0 (1.6-2.3) mg/dL Total Bilirubin 1.3 (0.2-1.3) mg/dL AST 38 (17-59) U/L ALT 33 (4-49) U/L Alkaline Phosphatase 152 H (38-126) U/L Troponin I (0.000-0.034) ng/mL NT-Pro-B Natriuret Pep 1280 pg/mL Total Protein 6.6 (6.3-8.2) g/dL Albumin 4.0 (3.5-5.0) g/dL TSH 2.370 (0.465-4.680) mIU/L Urine Color Red Urine Appearance Cloudy (Clear) Urine pH 5.5 (5.0-8.0) Ur Specific [place] 1.016 (1.001-1.035) Urine Protein 1+ H (Negative) Urine Glucose (UA) Negative (Negative) Urine Ketones Negative (Negative) Urine Blood Large H (Negative) Urine Nitrite Negative (Negative) Urine Bilirubin Negative (Negative) Urine Urobilinogen <2.0 (<2.0) mg/dL Ur Leukocyte Esterase Small H (Negative) Urine RBC >182 H (0-5) /hpf Urine WBC 35 H (0-5) /hpf 09/23/24 09/23/24 09/23/24 Range/Units 23:27 23:27 23:27 WBC (3.8-10.6) k/uL RBC (4.30-5.90) m/uL Hgb (13.0-17.5) gm/dL Hct (39.0-53.0) % MCV (80.0-100.0) fL MCH (25.0-35.0) pg MCHC (31.0-37.0) g/dL RDW (11.5-15.5) % Plt Count (150-450) k/uL MPV Neutrophils % % Lymphocytes % % Monocytes % % Eosinophils % % Basophils % % Neutrophils # (1.3-7.7) k/uL Lymphocytes # (1.0-4.8) k/uL Monocytes # (0-1.0) k/uL Eosinophils # (0-0.7) k/uL Basophils # (0-0.2) k/uL PT 11.1 (10.0-12.5) sec INR 1.0 (<1.2) APTT 26.7 (22.0-30.0) sec Sodium (137-145) mmol/L Potassium (3.5-5.1) mmol/L Chloride (98-107) mmol/L Carbon Dioxide (22-30) mmol/L Anion Gap mmol/L BUN (9-20) mg/dL Creatinine (0.66-1.25) mg/dL Est GFR (CKD-EPI)AfAm (>60 ml/min/1.73 sqM) Est GFR (CKD-EPI)NonAf (>60 ml/min/1.73 sqM) Glucose (74-99) mg/dL Plasma Lactic Acid Hernan 2.0 (0.7-2.0) mmol/L Calcium (8.4-10.2) mg/dL Phosphorus (2.5-4.5) mg/dL Magnesium (1.6-2.3) mg/dL Total Bilirubin (0.2-1.3) mg/dL AST (17-59) U/L ALT (4-49) U/L Alkaline Phosphatase (38-126) U/L Troponin I <0.012 (0.000-0.034) ng/mL NT-Pro-B Natriuret Pep pg/mL Total Protein (6.3-8.2) g/dL Albumin (3.5-5.0) g/dL TSH (0.465-4.680) mIU/L Urine Color Urine Appearance (Clear) Urine pH (5.0-8.0) Ur Specific [place] (1.001-1.035) Urine Protein (Negative) Urine Glucose (UA) (Negative) Urine Ketones (Negative) Urine Blood (Negative) Urine Nitrite (Negative) Urine Bilirubin (Negative) Urine Urobilinogen (<2.0) mg/dL Ur Leukocyte Esterase (Negative) Urine RBC (0-5) /hpf Urine WBC (0-5) /hpf Critical Care Time Critical Care Time: Yes Total Critical Care Time: 31 <Jeffy Harley - Last Filed: 09/24/24 21:23> Disposition <Juanita Singh - Last Filed: 09/23/24 22:48> Is patient prescribed a controlled substance at d/c from ED?: No Time of Disposition: 01:00 <Jeffy Harley - Last Filed: 09/24/24 21:23> Clinical Impression: Atrial fibrillation with RVR, Delirium due to general medical condition, UTI (urinary tract infection), Altered mental status, Dehydration, Weakness, Falls Disposition: ADMITTED IP TO THIS HOSP Condition: Serious
[2024-09-23 23:39] LABS: Basophils # (A) 0.1 k/uL (0-0.2); Basophils % (A) 0 %; Eosinophils # (A) 0.2 k/uL (0-0.7); Eosinophils % (A) 1 %; HCT 48.4 % (39.0-53.0); HGB 15.8 gm/dL (13.0-17.5); Lymphocytes # (A) 2.6 k/uL (1.0-4.8); Lymphocytes % (A) 17 %; MCH 32.4 pg (25.0-35.0); MCHC 32.7 g/dL (31.0-37.0); MCV 99.2 fL (80.0-100.0); Monocytes % (A) 7 %; Neutrophils % (A) 72 %; Platelet Count 197 k/uL (150-450); RBC 4.88 m/uL (4.30-5.90); RDW 13.2 % (11.5-15.5); WBC 15.2 k/uL (3.8-10.6)
[2024-09-23 23:48] LABS: Partial Thromboplastin Time 26.7 sec (22.0-30.0); Prothrombin Time 11.1 sec (10.0-12.5)
[2024-09-23 23:50] LABS: Appearance,Urine Cloudy (Clear); Bilirubin,Urine Negative (Negative); Blood,Urine Large (Negative); Color,Urine Red; Glucose,Urine (UA) Negative (Negative); Ketones,Urine Negative (Negative); Leukocyte Esterase,Urine Small (Negative); Nitrite,Urine Negative (Negative); PH, Urine 5.5 (5.0-8.0); Protein,Urine 1+ (Negative); RBC,Urine >182 /hpf (0-5); Specific Gravity,Urine 1.016 (1.001-1.035); Urobilinogen,Urine <2.0 mg/dL (<2.0); WBC,Urine 35 /hpf (0-5)
[2024-09-23 23:55] LABS: ALT 33 U/L (4-49); AST 38 U/L (17-59); African American GFR (CKD) 54 (>60 ml/min/1.73 sqM); Alkaline Phosphatase 152 U/L (38-126); Anion Gap 9 mmol/L; Blood Urea Nitrogen 31 mg/dL (9-20); Calcium 8.7 mg/dL (8.4-10.2); Carbon Dioxide 17 mmol/L (22-30); Chloride 110 mmol/L (98-107); Glucose 105 mg/dL (74-99); Non-African American GFR(CKD) 47 (>60 ml/min/1.73 sqM); Phosphorus 2.7 mg/dL (2.5-4.5); Potassium 4.3 mmol/L (3.5-5.1); Sodium 136 mmol/L (137-145); Total Bilirubin 1.3 mg/dL (0.2-1.3); Total Protein 6.6 g/dL (6.3-8.2)
[2024-09-23] MEDS: DILTIAZEM 125 MG in SODIUM CHLORIDE 0.9% 100 ML IV SCH (23:55)
[2024-09-23] MEDS: DILTIAZEM DRIP BOLUS FROM BAG 1 MG SOLN IV ONE (23:55)
[2024-09-24 00:04] LABS: NT-Pro-B-Type Natriuretic Pept 1280 pg/mL
[2024-09-24] MEDS: SODIUM CHLORIDE 0.9% 1,000 ML IV STA (00:17)
[2024-09-24] MEDS: ONDANSETRON 4 MG/2 ML VIAL IVP STA (00:19)
[2024-09-24] MEDS: MORPHINE SULFATE 4 MG/ML SYRINGE IV STA (00:19)
[2024-09-24] MEDS ORDERED: NALOXONE 0.4 MG/ML 1 ML VIAL IV PRN (01:21)
[2024-09-24] MEDS ORDERED: ONDANSETRON 4 MG/2 ML VIAL IVP PRN (01:21)
[2024-09-24] MEDS ORDERED: MORPHINE SULFATE 4 MG/ML SYRINGE IV PRN (01:21)
--- NOTE | 2024-09-24 01:25 | CT ---
EXAM: CT Head Without Intravenous Contrast CLINICAL HISTORY: Falls ,pain TECHNIQUE: Axial computed tomography images of the head/brain without intravenous contrast. CTDI is 45.2 mGy and DLP is 1072 mGy-cm. This CT exam was performed using one or more of the following dose reduction techniques: automated exposure control, adjustment of the mA and/or kV according to patient size, and/or use of iterative reconstruction technique. COMPARISON: 08/19/2023. FINDINGS: Brain: Age-appropriate generalized atrophy. No acute stroke. Mild supratentorial periventricular and subcortical white matter changes. No acute hemorrhage or abnormal extra-axial fluid collection. Ventricles: No hydrocephalus. No midline shift. Bones/joints: Unremarkable. No acute fracture. Soft tissues: Unremarkable. Sinuses: Unremarkable as visualized. No acute sinusitis. IMPRESSION: No acute abnormality. EXAM: CT Cervical Spine Without Intravenous Contrast CLINICAL HISTORY: Falls, pain TECHNIQUE: Axial computed tomography images of the cervical spine without intravenous contrast. CTDI is 12.8 mGy and DLP is 375.4 mGy-cm. This CT exam was performed using one or more of the following dose reduction techniques: automated exposure control, adjustment of the mA and/or kV according to patient size, and/or use of iterative reconstruction technique. COMPARISON: No relevant prior studies available. FINDINGS: Vertebrae: No acute fracture. Maintenance of height of the vertebral bodies. No subluxation. Mild reversal of the normal cervical lordosis. Discs/spinal canal/neural foramina: Multilevel degenerative changes, greatest between C5-6 and C7-T1. Soft tissues: Prevertebral soft tissues are unremarkable. Atherosclerotic vascular calcifications. IMPRESSION: No acute fracture or subluxation. Mild reversal of the normal cervical lordosis, most commonly seen with muscle spasm or positioning. Multilevel degenerative changes.
[2024-09-24] MEDS: SODIUM CHLORIDE 0.9% 1,000 ML IV SCH (02:11)
--- NOTE | 2024-09-24 02:16 | XR ---
EXAM: XR Chest, 1 View CLINICAL HISTORY: Falls, pain TECHNIQUE: Frontal view of the chest. COMPARISON: No relevant prior studies available. FINDINGS: Heart and mediastinum are enlarged. Mild diffuse interstitial prominence compatible with pulmonary vascular congestion. Hypoventilation with bibasilar atelectasis. No pleural effusion or pneumothorax. Bones are unremarkable. IMPRESSION: Cardiomegaly. Pulmonary vascular congestion. Hypoventilation with bibasilar atelectasis.
--- NOTE | 2024-09-24 02:17 | XR ---
EXAM: XR Pelvis, 1 or 2 Views CLINICAL HISTORY: falls,pain TECHNIQUE: Frontal view of the pelvis. COMPARISON: No relevant prior studies available. FINDINGS: Bones/joints: Degenerative changes lower lumbar spine. No acute fracture. No dislocation. Soft tissues: Right pelvic coils. IMPRESSION: No acute post-traumatic abnormality.
[2024-09-24] MEDS: ATORVASTATIN 80 MG TAB PO SCH (08:45)
[2024-09-24] MEDS: DILTIAZEM CD 240 MG CAP.ER.24H PO SCH (08:45)
--- NOTE | 2024-09-24 11:12 | P.CRDCN ---
History of Present Illness History of present illness: HISTORY OF PRESENT ILLNESS: This is a 83-year-old male with a past medical history significant for dementia, persistent atrial fibrillation, mild to moderate aortic regurgitation, hyperte nsion, and hyperlipidemia. Patient follows in the office with Dr. De Paz. We have been asked to see the patient in consultation for A-fib with RVR. Patient examined at the bedside in the emergency room. Patient's is present and providing the majority of the HPI. Patient underwent TURBT on 09/19/[address] Allen secondary to a bladder tumor. Patient was discharged home with a Lombardo catheter. Patient's states that since the patient was discharged he his mentation has continued to decline. She states night the patient was more confused than normal and did not sleep all night. She states patient was talking nonstop for the past day but is not making sense and is confused. She does report that he felt approximately 7 times over the past couple days. She denies any episodes of syncope and states that his falls are because his legs were so weak. She reports that on Wednesday she took his Lombardo catheter out. At the time of removal the patient was not having any hematuria. She states after the catheter was removed she noticed that the patient's urine began to get bloody again. Patient was brought to the emergency room for further evaluation. Patient had indwelling urinary catheter reinserted with dark gross hematuria. Patient's Coumadin remains on hold. Patient's states that his Coumadin had not been resumed yet on an outpatient basis as they were instructed to hold it for 1 week. Patient was also found to be in A-fib with RVR. He was started on IV Cardizem. Bedside telemetry reveals atrial fibrillation with a heart rate between 901 05 at the time of examination. He remains on IV Cardizem at 5 mg an hour. Patient denies having any chest pain or pressure. He denies any shortness of breath. DIAGNOSTICS: - EKG reveals fibrillation with RVR - Chest xray cardiomegaly. Pulmonary vascular congestion. Hypoventilation with bibasilar atelectasis. - Laboratory data: WBC 15.2. Hemoglobin 15.8. Platelet count 197. Sodium 136. Potassium 4.3. BUN 31. Creatinine 1.41. Lactic acid 2.0. Troponin negative x 1. proBNP 1280. TSH 2.370. - Current home cardiac medications include Cardizem CD 240 mg daily, Lasix 20 mg Wednesday and , rosuvastatin 40 mg daily, and aspirin 81 mg daily. Patient also on Coumadin but was not taking it due to recent bladder surgery -Patient underwent Lexiscan stress test in March 2023 revealing inconclusive EKG part of the stress test due to baseline EKG abnormalities. Probably normal myocardial perfusion and function. - Most recent echocardiogram obtained in August 2023 revealing ejection fra ction 50 to 55%, mild to moderate aortic regurgitation, mild tricuspid regurgitation REVIEW OF SYSTEMS: At the time of my exam: Unable to obtain thorough review of systems as patient is slightly confused at the time of examination PHYSICAL EXAM: VITAL SIGNS: Reviewed. GENERAL: Well-developed in no acute distress. HEENT: Head is normocephalic. Pupils are equal, round. Sclerae anicteric. Mucous membranes of the mouth are moist. Neck supple. No JVD or thyromegaly LUNGS: Respirations even and unlabored. Lungs essentially clear to auscultation bilaterally. HEART: Irregular rate and rhythm. S1 and S2 heard. : Indwelling urinary catheter with hematuria present ABDOMEN: Soft. Nondistended. Nontender. EXTREMITIES: Normal range of motion. No clubbing or cyanosis. Peripheral pulses intact. No lower extremity edema NEUROLOGIC: Slightly lethargic at time of examination ASSESSMENT: Generalized weakness with recurrent mechanical falls and worsening cognition Bladder tumor, status post TURBT, 09/19/2024 Hematuria Persistent atrial fibrillation with RVR Mild HORACE Chronic heart failure with preserved EF, 50 to 55% currently euvolemic History of hypertension Hyperlipidemia Mild to moderate AI History of dementia PLAN: No need to obtain echocardiogram at this time Hold Coumadin secondary to hematuria Urology consulted. Await evaluation and recommendations Resume oral Cardizem 240 mg. Discontinue IV Cardizem Continue telemetry monitoring Further recommendations pending patient course Nurse practitioner note has been reviewed by physician. Signing provider agrees with the documented findings, assessment, and plan of care documented by IRRIGATION TECHNICIAN as a scribe. Past Medical History Past Medical History: Atrial Fibrillation, Dementia, Hyperlipidemia, Memory Impairment Additional Past Medical History / Comment(s): bronchitis, falls History of Any Multi-Drug Resistant Organisms: None Reported Past Surgical History: Bladder Surgery, Hernia Repair Past Anesthesia/Blood Transfusion Reactions: No Reported Reaction Past Psychological History: No Psychological Hx Reported Smoking Status: Never smoker Past Alcohol Use History: None Reported Past Drug Use History: None Reported Medications and Allergies Home Medications Medication Instructions Recorded Confirmed Type Furosemide [Lasix] 20 mg PO MOTH 05/31/16 09/24/24 History Diltiazem Cd [Cardizem CD] 240 mg PO DAILY 12/13/22 09/24/24 History Ascorbic Acid [Vitamin C] 500 mg PO DAILY #30 tab 12/17/22 09/24/24 Rx Aspirin EC [Ecotrin Low Dose] 81 mg PO DAILY 08/15/23 09/24/24 History Cholecalciferol [Vitamin D3 (25 50 mcg PO DAILY 08/15/23 09/24/24 History Mcg = 1000 Iu)] Memantine [Namenda] 5 mg PO DAILY 08/15/23 09/24/24 History Rosuvastatin Calcium 40 mg PO DAILY 08/15/23 09/24/24 History levETIRAcetam [Keppra] 500 mg PO Q12HR 30 Days #60 tab 08/20/23 09/24/24 Rx Warfarin [Coumadin] 2.5 mg PO DIRECTED 09/24/24 09/24/24 History Allergies Allergy/AdvReac Type Severity Reaction Status Date / Time levofloxacin [From Levaquin] Allergy Leg Verified 09/24/24 09:30 Swelling Penicillins Allergy Unknown Verified 09/24/24 09:30 Physical Exam Vitals: Vital Signs Temp Pulse Resp BP Pulse Ox 09/24/24 06:00 98.1 F 103 H 18 111/84 93 L 09/24/24 05:30 96 21 102/74 96 09/24/24 05:00 98 21 124/97 94 L 09/24/24 04:30 82 22 123/91 96 09/24/24 04:00 114 H 22 118/85 94 L 09/24/24 03:30 123 H 24 111/65 95 09/24/24 03:04 97.9 F 09/24/24 02:40 103 H 21 111/73 91 L 09/24/24 02:17 103 H 22 98/76 96 09/24/24 02:00 115 H 28 H 145/105 09/24/24 01:40 117 H 22 145/105 09/24/24 01:20 112 H 22 129/79 96 09/24/24 01:00 131/86 09/24/24 00:40 110 H 21 131/86 94 L 09/24/24 00:30 121 H 18 134/98 94 L 09/24/24 00:20 125 H 18 134/98 95 09/24/24 00:10 130 H 25 H 134/98 96 09/24/24 00:04 156 H 16 134/98 96 09/23/24 23:01 98.0 F 138 H 26 H 133/79 93 L Intake and Output 09/23/24 09/24/24 09/24/24 22:59 06:59 14:59 Other: Weight 102.058 kg Results 09/23/24 23:21 09/23/24 23:27 Cardiac Enzymes 09/23/24 09/23/24 Range/Units 23:27 23:27 AST 38 (17-59) U/L Troponin I <0.012 (0.000-0.034) ng/mL Coagulation 09/23/24 Range/Units 23:27 PT 11.1 (10.0-12.5) sec APTT 26.7 (22.0-30.0) sec CBC 09/23/24 Range/Units 23:21 WBC 15.2 H (3.8-10.6) k/uL RBC 4.88 (4.30-5.90) m/uL Hgb 15.8 (13.0-17.5) gm/dL Hct 48.4 (39.0-53.0) % Plt Count 197 (150-450) k/uL Comprehensive Metabolic Panel 09/23/24 Range/Units 23:27 Sodium 136 L (137-145) mmol/L Potassium 4.3 (3.5-5.1) mmol/L Chloride 110 H (98-107) mmol/L Carbon Dioxide 17 L (22-30) mmol/L BUN 31 H (9-20) mg/dL Creatinine 1.41 H (0.66-1.25) mg/dL Glucose 105 H (74-99) mg/dL Calcium 8.7 (8.4-10.2) mg/dL AST 38 (17-59) U/L ALT 33 (4-49) U/L Alkaline Phosphatase 152 H (38-126) U/L Total Protein 6.6 (6.3-8.2) g/dL Albumin 4.0 (3.5-5.0) g/dL Current Medications Generic Name Dose Route Start Last Admin Trade Name Freq PRN Reason Stop Dose Admin Diltiazem HCl 125 mg/ Sodium 125 mls @ 5 mls/hr 09/23/24 23:30 09/23/24 23:55 Chloride IV 5 mg/hr .Q24H YOEL 5 mls/hr Administration 5 MG/HR Sodium Chloride 1,000 mls @ 75 mls/hr 09/24/24 01:30 09/24/24 02:11 Saline 0.9% IV 75 mls/hr .[id number] YOEL Administration Morphine Sulfate 4 mg 09/24/24 01:21 Morphine Sulfate 4 Mg/Ml Syringe IV Q4HR PRN Severe Pain (Scale 7 to 10) Naloxone HCl 0.2 mg 09/24/24 01:21 Naloxone 0.4 Mg/Ml 1 Ml Vial IV Q2M PRN Opioid Reversal Ondansetron HCl 4 mg 09/24/24 01:21 Ondansetron 4 Mg/2 Ml Vial IVP Q8HR PRN Nausea And Vomiting Intake and Output 09/23/24 09/24/24 09/24/24 22:59 06:59 14:59 Other: Weight 102.058 kg 09/23/24 23:21 09/23/24 23:27
--- NOTE | 2024-09-24 13:40 | P.HPIM ---
History of Present Illness H&P Date: 09/24/24 History of present illness; patient is a 83-year-old gentleman with past medical history significant for recent bladder tumor removal comes to the ER because of generalized weakness and falls. Patient stated he had bladder tumor removed from Dr. Allen on Wednesday. Following that patient noticed that he has been feeling more weak and has no energy. Patient has been complaining of increased frequency of urination, also noticed blood in his urine. Patient has been falling at home. There is no complaint of fever or chills. There is no complaint of chest pain or shortness of breath. There is no complaint of lightheadedness or dizziness. Patient denies any nausea, vomiting abdominal pain. Initial lab work done in the ER showed WBC 15.2, hemoglobin 15.8, platelet count 197, sodium 136, potassium 4.3, BUN 31, creatinine 1.41, glucose 105, alk phos 152, troponin 0.012, proBNP 1280 UA done showed large amount of urine blood, urine WBC more than 182 EKG done in the ER showed heart rate of 145, irregular rhythm, no ST segment elevation or depression seen, no T-wave inversions seen. Chest x-ray done in the ER showed cardiomegaly, pulmonary congestion CT head done showed no acute intracranial process CT cervical spine done showed no acute fracture or subluxation X-ray pelvis done showed no fracture Patient admitted to internal medicine service REVIEW OF SYSTEMS: CONSTITUTIONAL: No fever, no malaise, no fatigue. HEENT: No recent visual problems or hearing problems. Denied any sore throat. CARDIOVASCULAR: As mentioned above PULMONARY: No shortness of breath, no cough, no hemoptysis. GASTROINTESTINAL: As mentioned above NEUROLOGICAL: No headaches, no weakness, no numbness. HEMATOLOGICAL: Denies any bleeding or petechiae. GENITOURINARY: As mentioned above MUSCULOSKELETAL/RHEUMATOLOGICAL: Denies any joint pain, swelling, or any muscle pain. ENDOCRINE: Denies any polyuria or polydipsia. The rest of the 14-point review of systems is negative. PHYSICAL EXAMINATION: GENERAL: The patient is alert and oriented x3, not in any acute distress. Well developed, well nourished. HEENT: Pupils are round and equally reacting to light. EOMI. No scleral icterus. No conjunctival pallor. Normocephalic, atraumatic. No pharyngeal erythema. No thyromegaly. CARDIOVASCULAR: S1 and S2 present. No murmurs, rubs, or gallops. PULMONARY: Chest is clear to auscultation, no wheezing or crackles. ABDOMEN: Soft, nontender, nondistended, normoactive bowel sounds. No palpable organomegaly. MUSCULOSKELETAL: No joint swelling or deformity. EXTREMITIES: No cyanosis, clubbing, or pedal edema. NEUROLOGICAL: Gross neurological examination did not reveal any focal deficits. SKIN: No rashes. Assessment and plan Hematuria Debility A-fib with RVR generalized weakness Multiple falls History of chronic atrial fibrillation Hyperlipidemia Dementia Monitor vital signs Monitor CBC Monitor CMP Continue telemetry monitoring Continue Cardizem drip Hold Coumadin because hematuria Continue IV fluids Resume Cardizem oral Resume rosuvastatin Ordered PT Ordered OT Case management consult Urology consulted Cardiology consulted Labs and medication were reviewed.. Continue same treatment. Continue with symptomatic treatment. Resume home medication. Monitor labs and vitals. DVT and GI prophylaxis. Further recommendations as per clinical course of the patient Dictation was produced using [employer] dictation software. please excuse any grammatical, word or spelling errors. Past Medical History Past Medical History: Atrial Fibrillation, Dementia, Hyperlipidemia, Memory Impairment Additional Past Medical History / Comment(s): bronchitis, falls History of Any Multi-Drug Resistant Organisms: None Reported Past Surgical History: Bladder Surgery, Hernia Repair Past Anesthesia/Blood Transfusion Reactions: No Reported Reaction Past Psychological History: No Psychological Hx Reported Smoking Status: Never smoker Past Alcohol Use History: None Reported Past Drug Use History: None Reported Medications and Allergies Home Medications Medication Instructions Recorded Confirmed Type Furosemide [Lasix] 20 mg PO MOTH 05/31/16 09/24/24 History Diltiazem Cd [Cardizem CD] 240 mg PO DAILY 12/13/22 09/24/24 History Ascorbic Acid [Vitamin C] 500 mg PO DAILY #30 tab 12/17/22 09/24/24 Rx Aspirin EC [Ecotrin Low Dose] 81 mg PO DAILY 08/15/23 09/24/24 History Cholecalciferol [Vitamin D3 (25 50 mcg PO DAILY 08/15/23 09/24/24 History Mcg = 1000 Iu)] Memantine [Namenda] 5 mg PO DAILY 08/15/23 09/24/24 History Rosuvastatin Calcium 40 mg PO DAILY 08/15/23 09/24/24 History levETIRAcetam [Keppra] 500 mg PO Q12HR 30 Days #60 tab 08/20/23 09/24/24 Rx Warfarin [Coumadin] 2.5 mg PO DIRECTED 09/24/24 09/24/24 History Allergies Allergy/AdvReac Type Severity Reaction Status Date / Time levofloxacin [From Levaquin] Allergy Leg Verified 09/24/24 09:30 Swelling Penicillins Allergy Unknown Verified 09/24/24 09:30 Physical Exam Vitals: Vital Signs Temp Pulse Resp BP Pulse Ox 09/24/24 08:39 94 18 121/70 94 L 09/24/24 06:00 98.1 F 103 H 18 111/84 93 L 09/24/24 05:30 96 21 102/74 96 09/24/24 05:00 98 21 124/97 94 L 09/24/24 04:30 82 22 123/91 96 09/24/24 04:00 114 H 22 118/85 94 L 09/24/24 03:30 123 H 24 111/65 95 09/24/24 03:04 97.9 F 09/24/24 02:40 103 H 21 111/73 91 L 09/24/24 02:17 103 H 22 98/76 96 09/24/24 02:00 115 H 28 H 145/105 09/24/24 01:40 117 H 22 145/105 09/24/24 01:20 112 H 22 129/79 96 09/24/24 01:00 131/86 09/24/24 00:40 110 H 21 131/86 94 L 09/24/24 00:30 121 H 18 134/98 94 L 09/24/24 00:20 125 H 18 134/98 95 09/24/24 00:10 130 H 25 H 134/98 96 09/24/24 00:04 156 H 16 134/98 96 09/23/24 23:01 98.0 F 138 H 26 H 133/79 93 L Intake and Output 09/23/24 09/24/24 09/24/24 22:59 06:59 14:59 Other: Weight 102.058 kg Results CBC & Chem 7: 09/23/24 23:21 09/23/24 23:27 Labs: Abnormal Lab Results - Last 24 Hours (Table) 09/23/24 09/23/24 09/23/24 Range/Units 23:21 23:27 23:27 WBC 15.2 H (3.8-10.6) k/uL Neutrophils # 11.0 H (1.3-7.7) k/uL Sodium 136 L (137-145) mmol/L Chloride 110 H (98-107) mmol/L Carbon Dioxide 17 L (22-30) mmol/L BUN 31 H (9-20) mg/dL Creatinine 1.41 H (0.66-1.25) mg/dL Glucose 105 H (74-99) mg/dL Alkaline Phosphatase 152 H (38-126) U/L Urine Protein 1+ H (Negative) Urine Blood Large H (Negative) Ur Leukocyte Esterase Small H (Negative) Urine RBC >182 H (0-5) /hpf Urine WBC 35 H (0-5) /hpf
--- NOTE | 2024-09-24 14:37 | P.GSCN ---
History of Present Illness Consult date: 09/24/24 Reason for Consult: Bladder Tumors Requesting physician: Debbie Morales History of present illness: The patient is an 83-year-old white male who underwent transurethral resection of multiple large bladder tumors by Dr. Allen on September 19, 2024. Pathology is pending. He was discharged home with a Lombardo catheter. The patient has dementia and became increasingly confused on September 21, 2024. This progressed the following day, and his remove the Lombardo catheter yesterday morning. His urine had begun to clear prior to catheter removal. He presented to the ER and was admitted with primary complaints of weakness, urinary frequency, and gross hematuria. The Lombardo catheter has been replaced. The patient currently denies abdominal pain. Review of Systems - Constitutional Reports weakness, Denies chills, Denies fever - Genitourinary Reports as per HPI Past Medical History Past Medical History: Atrial Fibrillation, Dementia, Hyperlipidemia, Memory Impairment Additional Past Medical History / Comment(s): bronchitis, falls History of Any Multi-Drug Resistant Organisms: None Reported Past Surgical History: Bladder Surgery, Hernia Repair Past Anesthesia/Blood Transfusion Reactions: No Reported Reaction Past Psychological History: No Psychological Hx Reported Smoking Status: Never smoker Past Alcohol Use History: None Reported Past Drug Use History: None Reported Medications and Allergies Home Medications Medication Instructions Recorded Confirmed Type Furosemide [Lasix] 20 mg PO MOTH 05/31/16 09/24/24 History Diltiazem Cd [Cardizem CD] 240 mg PO DAILY 12/13/22 09/24/24 History Ascorbic Acid [Vitamin C] 500 mg PO DAILY #30 tab 12/17/22 09/24/24 Rx Aspirin EC [Ecotrin Low Dose] 81 mg PO DAILY 08/15/23 09/24/24 History Cholecalciferol [Vitamin D3 (25 50 mcg PO DAILY 08/15/23 09/24/24 History Mcg = 1000 Iu)] Memantine [Namenda] 5 mg PO DAILY 08/15/23 09/24/24 History Rosuvastatin Calcium 40 mg PO DAILY 08/15/23 09/24/24 History levETIRAcetam [Keppra] 500 mg PO Q12HR 30 Days #60 tab 08/20/23 09/24/24 Rx Warfarin [Coumadin] 2.5 mg PO DIRECTED 09/24/24 09/24/24 History Allergies Allergy/AdvReac Type Severity Reaction Status Date / Time levofloxacin [From Levaquin] Allergy Leg Verified 09/24/24 09:30 Swelling Penicillins Allergy Unknown Verified 09/24/24 09:30 Surgical - Exam Vital Signs Temp Pulse Resp BP Pulse Ox 98.0 F 138 H 26 H 133/79 93 L 09/23/24 23:01 09/23/24 23:01 09/23/24 23:01 09/23/24 23:01 09/23/24 23:01 - General well developed, well nourished, no distress - Respiratory normal respiratory effort - Abdomen Abdomen: soft, non tender, no guarding, no rigid, no rebound - Genitourinary normal penis with no external lesions, testicles non-tender - Psychiatric oriented to time, oriented to person, oriented to place, speech is normal, memory intact Results - Labs 09/23/24 23:21 09/23/24 23:27 Abnormal Lab Results - Last 24 Hours (Table) 09/23/24 09/23/24 09/23/24 Range/Units 23:21 23:27 23:27 WBC 15.2 H (3.8-10.6) k/uL Neutrophils # 11.0 H (1.3-7.7) k/uL Sodium 136 L (137-145) mmol/L Chloride 110 H (98-107) mmol/L Carbon Dioxide 17 L (22-30) mmol/L BUN 31 H (9-20) mg/dL Creatinine 1.41 H (0.66-1.25) mg/dL Glucose 105 H (74-99) mg/dL Alkaline Phosphatase 152 H (38-126) U/L Urine Protein 1+ H (Negative) Urine Blood Large H (Negative) Ur Leukocyte Esterase Small H (Negative) Urine RBC >182 H (0-5) /hpf Urine WBC 35 H (0-5) /hpf Diabetes panel 09/23/24 Range/Units 23:27 Sodium 136 L (137-145) mmol/L Potassium 4.3 (3.5-5.1) mmol/L Chloride 110 H (98-107) mmol/L Carbon Dioxide 17 L (22-30) mmol/L BUN 31 H (9-20) mg/dL Creatinine 1.41 H (0.66-1.25) mg/dL Glucose 105 H (74-99) mg/dL Calcium 8.7 (8.4-10.2) mg/dL AST 38 (17-59) U/L ALT 33 (4-49) U/L Alkaline Phosphatase 152 H (38-126) U/L Total Protein 6.6 (6.3-8.2) g/dL Albumin 4.0 (3.5-5.0) g/dL Thyroid panel 09/23/24 Range/Units 23:27 TSH 2.370 (0.465-4.680) mIU/L Calcium panel 09/23/24 Range/Units 23:27 Calcium 8.7 (8.4-10.2) mg/dL Phosphorus 2.7 (2.5-4.5) mg/dL Albumin 4.0 (3.5-5.0) g/dL Pituitary panel 09/23/24 Range/Units 23:27 Sodium 136 L (137-145) mmol/L Potassium 4.3 (3.5-5.1) mmol/L Chloride 110 H (98-107) mmol/L Carbon Dioxide 17 L (22-30) mmol/L BUN 31 H (9-20) mg/dL Creatinine 1.41 H (0.66-1.25) mg/dL Glucose 105 H (74-99) mg/dL Calcium 8.7 (8.4-10.2) mg/dL TSH 2.370 (0.465-4.680) mIU/L Adrenal panel 09/23/24 Range/Units 23:27 Sodium 136 L (137-145) mmol/L Potassium 4.3 (3.5-5.1) mmol/L Chloride 110 H (98-107) mmol/L Carbon Dioxide 17 L (22-30) mmol/L BUN 31 H (9-20) mg/dL Creatinine 1.41 H (0.66-1.25) mg/dL Glucose 105 H (74-99) mg/dL Calcium 8.7 (8.4-10.2) mg/dL Total Bilirubin 1.3 (0.2-1.3) mg/dL AST 38 (17-59) U/L ALT 33 (4-49) U/L Alkaline Phosphatase 152 H (38-126) U/L Total Protein 6.6 (6.3-8.2) g/dL Albumin 4.0 (3.5-5.0) g/dL Assessment and Plan (1) Gross hematuria Current Visit: Yes Status: Acute Code(s): R31.0 - GROSS HEMATURIA SNOMED Code(s): 241432798 (2) Neoplasm of unspecified behavior of bladder Current Visit: Yes Status: Acute Code(s): D49.4 - NEOPLASM OF UNSPECIFIED BEHAVIOR OF BLADDER SNOMED Code(s): 172673433 Plan: The patient currently has a [address] catheter in place, draining bloody urine without clots. I have encouraged the patient to drink plenty of fluids to decrease the risk of clot formation. I would suggest that the catheter remain in place, but if it becomes occluded he will require catheter irrigation and perhaps catheter changed to a larger Lombardo catheter.
[2024-09-25 07:38] LABS: HCT 45.6 % (39.0-53.0); HGB 14.6 gm/dL (13.0-17.5); MCH 32.3 pg (25.0-35.0); MCHC 32.1 g/dL (31.0-37.0); MCV 100.5 fL (80.0-100.0); Mean Platelet Volume 8.4; Platelet Count 179 k/uL (150-450); RBC 4.54 m/uL (4.30-5.90); RDW 13.3 % (11.5-15.5); WBC 10.8 k/uL (3.8-10.6)
[2024-09-25 08:07] LABS: African American GFR (CKD) >90 (>60 ml/min/1.73 sqM); Anion Gap 7 mmol/L; Blood Urea Nitrogen 20 mg/dL (9-20); Calcium 8.1 mg/dL (8.4-10.2); Carbon Dioxide 21 mmol/L (22-30); Chloride 109 mmol/L (98-107); Glucose 93 mg/dL (74-99); Non-African American GFR(CKD) 82 (>60 ml/min/1.73 sqM); Potassium 4.4 mmol/L (3.5-5.1); Sodium 137 mmol/L (137-145)
[2024-09-25] MEDS: CHOLECALCIFEROL 25 MCG (1000 IU) TABLET PO SCH (09:21)
[2024-09-25 09:31] VITALS: RESP 16; TEMP 98.1
[2024-09-25] MEDS: levETIRAcetam 500 MG TAB PO SCH (10:32)
[2024-09-25] MEDS: ASCORBIC ACID 500 MG TAB PO SCH (10:32)
[2024-09-25] MEDS: MEMANTINE 5 MG TAB PO SCH (10:32)
--- NOTE | 2024-09-25 10:57 | P.DS ---
Providers Date of admission: 09/24/24 01:21 Expected date of discharge: 09/25/24 Attending physician: Debbie Morales Consults: 09/24/24 01:21 Consult Physician Routine Consulting Provider: Marcin Allen Consult Reason/Comments: kknown Do you want consulting provider notified?: Yes Consult Physician Routine Consulting Provider: Shila Díaz Consult Reason/Comments: [email or web address] Do you want consulting provider notified?: Yes Primary care physician: Coty Rose Hospital Course: Discharge diagnoses; Hematuria Debility A-fib with RVR generalized weakness Multiple falls History of chronic atrial fibrillation Hyperlipidemia Dementia Hospital course; patient is a 83-year-old gentleman with past medical history significant for recent bladder tumor removal comes to the ER because of generalized weakness and falls. Patient stated he had bladder tumor removed from Dr. Allen on Wednesday. Following that patient noticed that he has been feeling more weak and has no energy. Patient has been complaining of increased frequency of urination, also noticed blood in his urine. Patient has been falling at home. There is no complaint of fever or chills. There is no complaint of chest pain or shortness of breath. There is no complaint of lightheadedness or dizziness. Patient denies any nausea, vomiting abdominal pain. Initial lab work done in the ER showed WBC 15.2, hemoglobin 15.8, platelet count 197, sodium 136, potassium 4.3, BUN 31, creatinine 1.41, glucose 105, alk phos 152, troponin 0.012, proBNP 1280 UA done showed large amount of urine blood, urine WBC more than 182 EKG done in the ER showed heart rate of 145, irregular rhythm, no ST segment elevation or depression seen, no T-wave inversions seen. Chest x-ray done in the ER showed cardiomegaly, pulmonary congestion CT head done showed no acute intracranial process CT cervical spine done showed no acute fracture or subluxation X-ray pelvis done showed no fracture Patient admitted to internal medicine service 09/25. Patient seen and examined. Cardiology recommended keeping patient on Cardizem and holding off on Coumadin till urology is okay with that. Urology cleared the patient for discharge. PT and OT recommend rehab but patient family at this time is refusing, wants to be discharged home with home care PHYSICAL EXAMINATION: GENERAL: The patient is alert and oriented x3, not in any acute distress. Well developed, well nourished. HEENT: Pupils are round and equally reacting to light. EOMI. No scleral icterus. No conjunctival pallor. Normocephalic, atraumatic. No pharyngeal erythema. No thyromegaly. CARDIOVASCULAR: S1 and S2 present. No murmurs, rubs, or gallops. PULMONARY: Chest is clear to auscultation, no wheezing or crackles. ABDOMEN: Soft, nontender, nondistended, normoactive bowel sounds. No palpable organomegaly. MUSCULOSKELETAL: No joint swelling or deformity. EXTREMITIES: No cyanosis, clubbing, or pedal edema. NEUROLOGICAL: Gross neurological examination did not reveal any focal deficits. SKIN: No rashes. Dictation was produced using [employer] dictation software. please excuse any grammatical, word or spelling errors. Patient Condition at Discharge: Good Plan - Discharge Summary Discharge Rx Participant: No New Discharge Prescriptions: Continue Furosemide [Lasix] 20 mg PO MOTH Diltiazem Cd [Cardizem CD] 240 mg PO DAILY Rosuvastatin Calcium 40 mg PO DAILY levETIRAcetam [Keppra] 500 mg PO Q12HR 30 Days #60 tab Ascorbic Acid [Vitamin C] 500 mg PO DAILY #30 tab Cholecalciferol [Vitamin D3 (25 Mcg = 1000 Iu)] 50 mcg PO DAILY Memantine [Namenda] 5 mg PO DAILY Discontinued Aspirin EC [Ecotrin Low Dose] 81 mg PO DAILY Warfarin [Coumadin] 2.5 mg PO DIRECTED Discharge Medication List Furosemide [Lasix] 20 mg PO MOTH 05/31/16 [History] Diltiazem Cd [Cardizem CD] 240 mg PO DAILY 12/13/22 [History] Ascorbic Acid [Vitamin C] 500 mg PO DAILY #30 tab 12/17/22 [Rx] Cholecalciferol [Vitamin D3 (25 Mcg = 1000 Iu)] 50 mcg PO DAILY 08/15/23 [History] Memantine [Namenda] 5 mg PO DAILY 08/15/23 [History] Rosuvastatin Calcium 40 mg PO DAILY 08/15/23 [History] levETIRAcetam [Keppra] 500 mg PO Q12HR 30 Days #60 tab 08/20/23 [Rx] Follow up Appointment(s)/Referral(s): Coty Rose MD [Primary Care Provider] - 1-2 days Activity/Diet/Wound Care/Special Instructions: patient needs to hold coumadin and aspirin till cleared by urology to be on it
[2024-09-25 11:19] VITALS: BP 108/65; PULSE 79
--- NOTE | 2024-09-25 13:37 | P.PN ---
Subjective Progress Note Date: 09/25/24 HISTORY OF PRESENT ILLNESS: This is a 83-year-old male with a past medical history significant for dementia, persistent atrial fibrillation, mild to moderate aortic regurgitation, hypertension, and hyperlipidemia. Patient follows in the office with Dr. De Paz. We have been asked to see the patient in consultation for A-fib with RVR. Patient examined at the bedside in the emergency room. Patient's is present and providing the majority of the HPI. Patient underwent TURBT on 09/19/[address] Allen secondary to a bladder tumor. Patient was discharged home with a Lombardo catheter. Patient's states that since the patient was discharged he his mentation has continued to decline. She states night the patient was more confused than normal and did not sleep all night. She stat es patient was talking nonstop for the past day but is not making sense and is confused. She does report that he felt approximately 7 times over the past couple days. She denies any episodes of syncope and states that his falls are because his legs were so weak. She reports that on Wednesday she took his Lombardo catheter out. At the time of removal the patient was not having any hematuria. She states after the catheter was removed she noticed that the patient's urine began to get bloody again. Patient was brought to the emergency room for further evaluation. Patient had indwelling urinary catheter reinserted with dark gross hematuria. Patient's Coumadin remains on hold. Patient's states that his Coumadin had not been resumed yet on an outpatient basis as they were instructed to hold it for 1 week. Patient was also found to be in A-fib with RVR. He was started on IV Cardizem. Bedside telemetry reveals atrial fibrillation with a heart rate between 901 05 at the time of examination. He remains on IV Cardizem at 5 mg an hour. Patient denies having any chest pain or pressure. He denies any shortness of breath. DIAGNOSTICS: - EKG reveals fibrillation with RVR - Chest xray cardiomegaly. Pulmonary vascular congestion. Hypoventilation with bibasilar atelectasis. - Laboratory data: WBC 15.2. Hemoglobin 15.8. Platelet count 197. Sodium 136. Potassium 4.3. BUN 31. Creatinine 1.41. Lactic acid 2.0. Troponin negative x 1. proBNP 1280. TSH 2.370. - Current home cardiac medications include Cardizem CD 240 mg daily, Lasix 20 mg Wednesday and , rosuvastatin 40 mg daily, and aspirin 81 mg daily. Patient also on Coumadin but was not taking it due to recent bladder surgery -Patient underwent Lexiscan stress test in March 2023 revealing inconclusive EKG part of the stress test due to baseline EKG abnormalities. Probably normal myocardial perfusion and function. - Most recent echocardiogram obtained in August 2023 revealing ejection fraction 50 to 55%, mild to moderate aortic regurgitation, mild tricuspid regurgitation 09/25/2024 Patient is seen and examined. He still has dark blood in his Lombardo catheter bag. He denies having any chest pain. His is at bedside. Coumadin has remained on hold due to hematuria. Blood pressure 108/65, heart rate 79, pulse ox 97% on room air. Repeat blood work reveals hemoglobin is 14.6. BUN 20 creatinine 0.86. PHYSICAL EXAM: VITAL SIGNS: Reviewed. GENERAL: Well-developed in no acute distress. HEENT: Head is normocephalic. Pupils are equal, round. Sclerae anicteric. Mucous membranes of the mouth are moist. Neck supple. No JVD or thyromegaly LUNGS: Respirations even and unlabored. Lungs essentially clear to auscultation bilaterally. HEART: Irregular rate and rhythm. S1 and S2 heard. : Indwelling urinary catheter with hematuria present ABDOMEN: Soft. Nondistended. Nontender. EXTREMITIES: Normal range of motion. No clubbing or cyanosis. Peripheral pulses intact. No lower extremity edema NEUROLOGIC: Awake alert and confused ASSESSMENT: Generalized weakness with recurrent mechanical falls and worsening cognition Bladder tumor, status post TURBT, 09/19/2024 Hematuria Persistent atrial fibrillation with RVR Mild HORACE Chronic heart failure with preserved EF, 50 to 55% currently euvolemic History of hypertension Hyperlipidemia Mild to moderate AI History of dementia PLAN: No need to obtain echocardiogram at this time Hold Coumadin secondary to hematuria Continue oral Cardizem 240 mg. Patient is cleared for discharge from cardiology and may follow-up In the office with Dr. De Paz in 2 weeks. Nurse practitioner note has been reviewed by physician. Signing provider agrees with the documented findings, assessment, and plan of care documented by TIMBER RIDER as a scribe. Objective - Vital Signs Vital signs: Vital Signs Temp 98.1 F 09/25/24 09:11 Pulse 83 09/25/24 09:11 Resp 16 09/25/24 09:11 BP 109/74 09/25/24 09:11 Pulse Ox 96 09/25/24 09:11 FiO2 Intake & Output 09/24/24 09/25/24 09/25/24 18:59 06:59 18:59 Intake Total 118 Output Total 80 1175 Balance 38 -1175 Weight 102.058 kg 94 kg Intake: Oral 118 Output: Urine 80 1175 Uretheral (Lombardo) 80 Other: Voiding Method Indwelling Catheter Indwelling Catheter - Labs CBC & Chem 7: 09/25/24 06:57 09/25/24 06:57 Labs: Abnormal Lab Results - Last 24 Hours (Table) 09/25/24 09/25/24 Range/Units 06:57 06:57 WBC 10.8 H (3.8-10.6) k/uL MCV 100.5 H (80.0-100.0) fL Chloride 109 H (98-107) mmol/L Carbon Dioxide 21 L (22-30) mmol/L Calcium 8.1 L (8.4-10.2) mg/dL Microbiology - Last 24 Hours (Table) 09/23/24 23:27 Urine Culture - Final Urine,Voided
== END 2024-09-25 12:55 | disposition home or self-care (01) ==
LOC: EC 22:33 → 3SCARD 09-24 01:21
PROVIDERS: ADMIT Hospitalist; ATTEND Hospitalist
DX: R31.0 Gross hematuria (principal); R53.81 Other malaise; R53.1 Weakness; R29.6 Repeated falls; I48.19 Other persistent atrial fibrillation; E78.5 Hyperlipidemia, unspecified; F03.90 Unspecified dementia, unspecified severity, without behavioral disturbance, psychotic disturbance, mood disturbance, and anxiety; E86.0 Dehydration; I11.0 Hypertensive heart disease with heart failure; I50.32 Chronic diastolic (congestive) heart failure; N17.9 Acute kidney failure, unspecified; I35.1 Nonrheumatic aortic (valve) insufficiency; J98.11 Atelectasis; Z79.01 Long term (current) use of anticoagulants; Z79.82 Long term (current) use of aspirin; Z79.899 Other long term (current) drug therapy; Z88.0 Allergy status to penicillin; Z88.1 Allergy status to other antibiotic agents; Z86.03 Personal history of neoplasm of uncertain behavior
CPT/HCPCS: 96368; 96365; 96366; 96375; 99291; 36415; 93005; 97162; 97166; 83880; 80053; 80048; 83605; 83735; 84100; 84443; 84484; 85025; 85027; 85610; 85730; 81001; 87086; 72170; 71045; 72125; 70450; G0378 ×2; J2270; J0696

== ENCOUNTER 2025-04-10 09:39 | Observation (INO) | payer MEDICARE ==
--- NOTE | 2025-04-10 10:12 | ED ---
General Adult HPI - General Chief complaint: Altered Mental Status Stated complaint: Confusion, weakness Time Seen by Provider: 04/10/25 09:45 Source: family, EMS, RN notes reviewed, old records reviewed Mode of arrival: EMS Limitations: altered mental status - History of Present Illness Initial comments: This is an 84-year-old male who presents to the emergency department family family gives all of the history. Family states that the patient has been altered and more fatigued since Wednesday night. Patient has a history of bladder cancer and atrial fibrillation. Patient has had no fevers. Patient had no difficulty breathing. Patient had no abdominal pain has been no nausea vomiting or diarrhea. Patient currently has no complaints. But according to family patient is much more confused - Related Data Home Medications Medication Instructions Recorded Confirmed Furosemide [Lasix] 20 mg PO MOTH 05/31/16 09/24/24 Diltiazem Cd [Cardizem CD] 240 mg PO DAILY 12/13/22 09/24/24 Cholecalciferol [Vitamin D3 (25 50 mcg PO DAILY 08/15/23 09/24/24 Mcg = 1000 Iu)] Memantine [Namenda] 5 mg PO DAILY 08/15/23 09/24/24 Rosuvastatin Calcium 40 mg PO DAILY 08/15/23 09/24/24 Previous Rx's Medication Instructions Recorded Ascorbic Acid [Vitamin C] 500 mg PO DAILY #30 tab 12/17/22 levETIRAcetam [Keppra] 500 mg PO Q12HR 30 Days #60 tab 08/20/23 Allergies Allergy/AdvReac Type Severity Reaction Status Date / Time levofloxacin [From Levaquin] Allergy Leg Verified 09/24/24 09:30 Swelling Penicillins Allergy Unknown Verified 09/24/24 09:30 Review of Systems ROS Statement: Those systems with pertinent positive or pertinent negative responses have been documented in the HPI. ROS Other: All systems not noted in ROS Statement are negative. Past Medical History Past Medical History: Atrial Fibrillation, Dementia, Hyperlipidemia, Memory Impairment Additional Past Medical History / Comment(s): bronchitis, falls History of Any Multi-Drug Resistant Organisms: None Reported Past Surgical History: Bladder Surgery, Hernia Repair Past Anesthesia/Blood Transfusion Reactions: No Reported Reaction Past Psychological History: No Psychological Hx Reported Smoking Status: Never smoker Past Alcohol Use History: None Reported Past Drug Use History: None Reported General Exam - General Exam Comments Initial Comments: GENERAL: Patient is well-developed and well-nourished. Patient is nontoxic and well- hydrated and is in no acute distress. ENT: Neck is soft and supple. No significant lymphadenopathy is noted. Oropharynx is clear. Moist mucous membranes. Neck has full range of motion without eliciting any pain. EYES: The sclera were anicteric and conjunctiva were pink and moist. Extraocular movements were intact and pupils were equal round and reactive to light. Eyelids were unremarkable. PULMONARY: Unlabored respirations. Good breath sounds bilaterally. No audible rales rhonchi or wheezing was noted. CARDIOVASCULAR: There is a regular rate and rhythm without any murmurs gallops or rubs. ABDOMEN: Soft and nontender with normal bowel sounds. No palpable organomegaly was noted. There is no palpable pulsatile mass. SKIN: Skin is clear with no lesions or rashes and otherwise unremarkable. NEUROLOGIC: Patient is alert and oriented x 2. Cranial nerves II through XII are grossly intact. Motor and sensory are also intact. Normal speech, volume and content. Symmetrical smile. MUSCULOSKELETAL: Normal extremities with adequate strength and full range of motion. 1+ edema bilaterally LYMPHATICS: No significant lymphadenopathy is noted PSYCHIATRIC: Normal psychiatric evaluation. Limitations: altered mental status Course Vital Signs 04/10/25 04/10/25 09:44 10:10 Temperature 96.8 F L 99.0 F Pulse Rate 98 87 Respiratory 15 16 Rate Blood Pressure 105/70 96/64 Medical Decision Making - Medical Decision Making EKG is interpreted by myself. EKG shows atrial fibrillation with rapid ventricular response at 111 bpm QRS 105 QT interval 313 QTc is 378. Patient's EKG shows no ST segment elevation or depression. Was pt. sent in by a medical professional or institution (, PA, [employer], urgent care, hospital, or usp...) When possible be specific @ -[No] Did you speak to anyone other than the patient for history (EMS, parent, family, police, friend...)? What history was obtained from this source @ -[No] Did you review nursing and triage notes (agree or disagree)? Why? @ -[I reviewed and agree with nursing and triage notes] Were old charts reviewed (outside hosp., previous admission, EMS record, old EKG, old radiological studies, urgent care reports/EKG's, usp records)? Report findings @ -[No old charts were reviewed] Differential Diagnosis? @ -Differential Altered Mental Status: Hypoglycemia, DKA, hypercapnia, ETOH, overdose, CO poisoning, trauma, myxedema coma, HTN encephalopathy, infection, encephalitis, psychosis, intercranial hemorrhage, hepatic encephalopathy, meningitis, CVA, this is not meant to be an all-inclusive list EKG interpreted by me (3pts min.). @ -[As above] X-rays interpreted by me (1pt min.). @ -[None done] CT interpreted by me (1pt min.). @ -[None done] U/S interpreted by me (1pt. min.). @ -[None done] What testing was considered but not performed or refused? (CT, X-rays, U/S, labs)? Why? @ -[None] What meds were considered but not given or refused? Why? @ -[None] Did you discuss the management of the patient with other professionals (professionals i.e. , PA, [employer], lab, RT, psych nurse, social economist, flask maker, t eacher, environmental officer, case management manager)? Give summary @ -I spoke with [facility]ist agreed to admit the patient Was smoking cessation discussed for >3mins.? @ -[No] Was critical care preformed (if so, how long)? @ -[No] Were there social determinants of health that impacted care today? How? (Homelessness, low income, unemployed, alcoholism, drug addiction, transportation, low edu. Level, literacy, decrease access to med. care, shelter, rehab)? @ -[No] Was there de-escalation of care discussed even if they declined (Discuss DNR or withdrawal of care, Hospice)? DNR status @ -[No] What co-morbidities impacted this encounter? (DM, HTN, Smoking, COPD, CAD, Cancer, CVA, ARF, Chemo, Hep., AIDS, mental health diagnosis, sleep apnea, morbid obesity)? @ -[None] Was patient admitted / discharged? Hospital course, mention meds given and route, prescriptions, significant lab abnormalities, going to OR and other pertinent info. @ -Patient had urinary tract infection patient was started on 2 g Rocephin patient continues to be somewhat altered from his baseline according to family patient will be admitted to [facility]ist. Antibiotics will continue on the floor Undiagnosed new problem with uncertain prognosis? @ -[No] Drug Therapy requiring intensive monitoring for toxicity (Heparin, Nitro, Insulin, Cardizem)? @ -[No] Were any procedures done? @ -[No] Diagnosis/symptom? @ -Altered mental status Acute, or Chronic, or Acute on Chronic? @ -Acute Uncomplicated (without systemic symptoms) or Complicated (systemic symptoms)? @ -complicated Side effects of treatment? @ -[No] Exacerbation, Progression, or Severe Exacerbation? @ -[No] Poses a threat to life or bodily function? How? (Chest pain, [place], [place], pneumonia, PE, COPD, DKA, ARF, appy, cholecystitis, CVA, Diverticulitis, Homicidal, Suicidal, threat to staff... and all critical care pts) @ -Yes this can lead to sepsis and endorgan dysfunction Diagnosis/symptom? @ -Urinary tract infection Acute, or Chronic, or Acute on Chronic? @ -Acute Uncomplicated (without systemic symptoms) or Complicated (systemic symptoms)? @ -Complicated Side effects of treatment? @ -[none] Exacerbation, Progression, or Severe Exacerbation] @ -[no] Poses a threat to life or bodily function? @ -Yes this can lead to sepsis and endorgan dysfunction - Lab Data Result diagrams: 04/10/25 10:15 04/10/25 10:15 Lab Results 04/10/25 04/10/25 04/10/25 Range/Units 10:10 10:10 10:15 WBC 15.01 H (4.50-10.00) 10*3/uL RBC 4.33 L (4.40-5.60) 10*6/uL Hgb 14.4 (13.0-17.0) g/dL Hct 41.9 (39.6-50.0) % MCV 96.8 (80.0-97.0) fL MCH 33.3 H (27.0-32.0) pg MCHC 34.4 (32.0-37.0) g/dL Plt Count 141 (140-440) 10*3/uL MPV 10.4 (9.5-12.2) fL Immature Gran % (Auto) 0.5 % Neutrophils % 86.4 % Lymphocytes % 5.8 % Monocytes % 6.1 % Eosinophils % 0.9 % Basophils % 0.3 % Immature Gran # 0.07 H (0.00-0.04) 10*3/uL Neutrophils # 12.97 H (1.80-7.70) 10*3/uL Lymphocytes # 0.87 L (0.90-5.00) 10*3/uL Monocytes # 0.92 (0.20-1.00) 10*3/uL Eosinophils # 0.13 (0.04-0.35) 10*3/uL Basophils # 0.05 (0.00-0.10) 10*3/uL Immature Plt Fraction 3.8 (1.1-6.1) % Sodium (137-145) mmol/L Potassium (3.5-5.1) mmol/L Chloride (98-107) mmol/L Carbon Dioxide (22-30) mmol/L Anion Gap mmol/L BUN (9-20) mg/dL Creatinine (0.66-1.25) mg/dL Est GFR (CKD-EPI)AfAm (>60 ml/min/1.73 sqM) Est GFR (CKD-EPI)NonAf (>60 ml/min/1.73 sqM) Glucose (74-99) mg/dL POC Glucose (mg/dL) (70-110) mg/dL POC Glu Material Mixer ID Calcium (8.4-10.2) mg/dL Total Bilirubin (0.2-1.3) mg/dL AST (17-59) U/L ALT (4-49) U/L Alkaline Phosphatase (38-126) U/L Total Protein (6.3-8.2) g/dL Albumin (3.5-5.0) g/dL Urine Color Yellow Urine Appearance Cloudy (Clear) Urine pH 6.0 (5.0-8.0) Ur Specific [place] 1.015 (1.001-1.035) Urine Protein 1+ H (Negative) Urine Glucose (UA) Negative (Negative) Urine Ketones Negative (Negative) Urine Blood Moderate H (Negative) Urine Nitrite Negative (Negative) Urine Bilirubin Negative (Negative) Urine Urobilinogen <2.0 (<2.0) mg/dL Ur Leukocyte Esterase Large H (Negative) Urine RBC 63 H (0-5) /hpf Urine WBC >182 H (0-5) /hpf Urine WBC Clumps Few H (None) /hpf Urine Mucus Rare H (None) /hpf Urine Opiates Screen Not Detected (NotDetected) Ur Oxycodone Screen Not Detected (NotDetected) Urine Methadone Screen Not Detected (NotDetected) Ur Barbiturates Screen Not Detected (NotDetected) U Tricyclic Antidepress Not Detected (NotDetected) Ur Phencyclidine Scrn Not Detected (NotDetected) Ur Amphetamines Screen Not Detected (NotDetected) U Methamphetamines Scrn Not Detected (NotDetected) U Benzodiazepines Scrn Not Detected (NotDetected) Urine Cocaine Screen Not Detected (NotDetected) U Marijuana (THC) Screen Not Detected (NotDetected) 04/10/25 04/10/25 Range/Units 10:15 10:19 WBC (4.50-10.00) 10*3/uL RBC (4.40-5.60) 10*6/uL Hgb (13.0-17.0) g/dL Hct (39.6-50.0) % MCV (80.0-97.0) fL MCH (27.0-32.0) pg MCHC (32.0-37.0) g/dL Plt Count (140-440) 10*3/uL MPV (9.5-12.2) fL Immature Gran % (Auto) % Neutrophils % % Lymphocytes % % Monocytes % % Eosinophils % % Basophils % % Immature Gran # (0.00-0.04) 10*3/uL Neutrophils # (1.80-7.70) 10*3/uL Lymphocytes # (0.90-5.00) 10*3/uL Monocytes # (0.20-1.00) 10*3/uL Eosinophils # (0.04-0.35) 10*3/uL Basophils # (0.00-0.10) 10*3/uL Immature Plt Fraction (1.1-6.1) % Sodium 139 (137-145) mmol/L Potassium 4.0 (3.5-5.1) mmol/L Chloride 107 (98-107) mmol/L Carbon Dioxide 20 L (22-30) mmol/L Anion Gap 12 mmol/L BUN 30 H (9-20) mg/dL Creatinine 1.21 (0.66-1.25) mg/dL Est GFR (CKD-EPI)AfAm 64 (>60 ml/min/1.73 sqM) Est GFR (CKD-EPI)NonAf 56 (>60 ml/min/1.73 sqM) Glucose 86 (74-99) mg/dL POC Glucose (mg/dL) 86 (70-110) mg/dL POC Glu Material Mixer ID Dylan Miller Calcium 8.9 (8.4-10.2) mg/dL Total Bilirubin 1.2 (0.2-1.3) mg/dL AST 40 (17-59) U/L ALT 32 (4-49) U/L Alkaline Phosphatase 104 (38-126) U/L Total Protein 6.3 (6.3-8.2) g/dL Albumin 3.4 L (3.5-5.0) g/dL Urine Color Urine Appearance (Clear) Urine pH (5.0-8.0) Ur Specific [place] (1.001-1.035) Urine Protein (Negative) Urine Glucose (UA) (Negative) Urine Ketones (Negative) Urine Blood (Negative) Urine Nitrite (Negative) Urine Bilirubin (Negative) Urine Urobilinogen (<2.0) mg/dL Ur Leukocyte Esterase (Negative) Urine RBC (0-5) /hpf Urine WBC (0-5) /hpf Urine WBC Clumps (None) /hpf Urine Mucus (None) /hpf Urine Opiates Screen (NotDetected) Ur Oxycodone Screen (NotDetected) Urine Methadone Screen (NotDetected) Ur Barbiturates Screen (NotDetected) U Tricyclic Antidepress (NotDetected) Ur Phencyclidine Scrn (NotDetected) Ur Amphetamines Screen (NotDetected) U Methamphetamines Scrn (NotDetected) U Benzodiazepines Scrn (NotDetected) Urine Cocaine Screen (NotDetected) U Marijuana (THC) Screen (NotDetected) Disposition Clinical Impression: Urinary tract infection, Altered mental status Disposition: ADMITTED IP TO THIS [facility] Referrals: Coty Rose MD [Primary Care Provider] - 1-2 days Time of Disposition: 13:13
[2025-04-10 10:21] LABS: Appearance,Urine Cloudy (Clear); Bilirubin,Urine Negative (Negative); Blood,Urine Moderate (Negative); Color,Urine Yellow; Glucose,Urine (UA) Negative (Negative); Ketones,Urine Negative (Negative); Leukocyte Esterase,Urine Large (Negative); Mucus,Urine Rare /hpf; Nitrite,Urine Negative (Negative); Protein,Urine 1+ (Negative); RBC,Urine 63 /hpf (0-5); Specific Gravity,Urine 1.015 (1.001-1.035); Urobilinogen,Urine <2.0 mg/dL (<2.0); WBC,Urine >182 /hpf (0-5)
[2025-04-10 10:21] LABS: Glucose,Whole Blood 86 mg/dL (70-110)
[2025-04-10 10:26] LABS: Amphetamine Screen,Urine Not Detected (NotDetected); Barbiturate Screen,Urine Not Detected (NotDetected); Benzodiazepines Screen,Urine Not Detected (NotDetected); Cocaine Screen,Urine Not Detected (NotDetected); Methadone Screen, Urine Not Detected (NotDetected); Opiate Screen,Urine Not Detected (NotDetected); Oxycodone Screen, Urine Not Detected (NotDetected); Phencyclidine Screen,Urine Not Detected (NotDetected); Tricyclic Antidepressant,Urine Not Detected (NotDetected); Urn Cannabinoid Scrn Not Detected (NotDetected)
[2025-04-10 10:31] LABS: Basophils # (A) 0.05 10*3/uL (0.00-0.10); Basophils % (A) 0.3 %; Eosinophils # (A) 0.13 10*3/uL (0.04-0.35); Eosinophils % (A) 0.9 %; HCT 41.9 % (39.6-50.0); HGB 14.4 g/dL (13.0-17.0); Immature Platelet Fraction 3.8 % (1.1-6.1); Lymphocytes # (A) 0.87 10*3/uL (0.90-5.00); Lymphocytes % (A) 5.8 %; MCH 33.3 pg (27.0-32.0); MCHC 34.4 g/dL (32.0-37.0); MCV 96.8 fL (80.0-97.0); Mean Platelet Volume 10.4 fL (9.5-12.2); Monocytes # (A) 0.92 10*3/uL (0.20-1.00); Monocytes % (A) 6.1 %; Neutrophils # (A) 12.97 10*3/uL (1.80-7.70); Neutrophils % (A) 86.4 %; Platelet Count 141 10*3/uL (140-440); RBC 4.33 10*6/uL (4.40-5.60); RDW 13.8 % (11.5-14.5); WBC 15.01 10*3/uL (4.50-10.00)
[2025-04-10] MEDS: SODIUM CHLORIDE 0.9% 500 ML 500 ML IV ONE (10:34)
[2025-04-10 10:45] LABS: ALT 32 U/L (4-49); AST 40 U/L (17-59); African American GFR (CKD) 64 (>60 ml/min/1.73 sqM); Albumin 3.4 g/dL (3.5-5.0); Alkaline Phosphatase 104 U/L (38-126); Anion Gap 12 mmol/L; Blood Urea Nitrogen 30 mg/dL (9-20); Calcium 8.9 mg/dL (8.4-10.2); Carbon Dioxide 20 mmol/L (22-30); Chloride 107 mmol/L (98-107); Glucose 86 mg/dL (74-99); Non-African American GFR(CKD) 56 (>60 ml/min/1.73 sqM); Sodium 139 mmol/L (137-145); Total Bilirubin 1.2 mg/dL (0.2-1.3); Total Protein 6.3 g/dL (6.3-8.2)
--- NOTE | 2025-04-10 11:36 | XR ---
EXAMINATION TYPE: XR chest 2V DATE OF EXAM: 04/10/2025 CLINICAL INDICATION: Male, 84 years old with history of altered mental status, TECHNIQUE: Frontal and lateral views of the chest are obtained. COMPARISON: Prior chest x-ray September 24, 2024 FINDINGS: There is cardiomegaly and chronic parenchymal changes bilaterally redemonstrated without s uspicious focal airspace opacity, pleural effusion, or pneumothorax seen. The osseous structures ar e intact. IMPRESSION: Cardiomegaly without acute pulmonary process. [facility], , 04/10/2025 11:34 AM
[2025-04-10] MEDS: cefTRIAXone IN SWFI 1,000 MG/10 ML SYRINGE IVP STA ×2 (13:16→13:17)
[2025-04-10] MEDS ORDERED: HALOPERIDOL LACTATE 5 MG/ML 1 ML VIAL IM STA (16:10)
--- NOTE | 2025-04-10 17:44 | P.GSCN ---
History of Present Illness Consult date: 04/10/25 Reason for Consult: Bladder cancer History of present illness: This is an 84-year-old male presented to the hospital with altered mental status . Patient does have dementia at baseline but had worsening confusion compared to his baseline. Urinalysis on presentation is positive for leukocytes. He is a patient is known to me, does have history of high-grade T1 bladder cancer status post TURBT in September 2024. He completed induction BCG. He was scheduled for surveillance cystoscopy tomorrow. Review of Systems ROS unobtainable: due to mental status Past Medical History Past Medical History: Atrial Fibrillation, Dementia, Hyperlipidemia, Memory Impairment Additional Past Medical History / Comment(s): bronchitis, falls History of Any Multi-Drug Resistant Organisms: None Reported Past Surgical History: Bladder Surgery, Hernia Repair Past Anesthesia/Blood Transfusion Reactions: No Reported Reaction Past Psychological History: No Psychological Hx Reported Smoking Status: Never smoker Past Alcohol Use History: None Reported Past Drug Use History: None Reported Medications and Allergies Home Medications Medication Instructions Recorded Confirmed Type Furosemide [Lasix] 20 mg PO TUTHSA 05/31/16 04/10/25 History Diltiazem Cd [Cardizem CD] 240 mg PO DAILY 12/13/22 04/10/25 History Ascorbic Acid [Vitamin C] 500 mg PO DAILY #30 tab 12/17/22 04/10/25 Rx Cholecalciferol [Vitamin D3 (25 25 mcg PO DAILY 08/15/23 04/10/25 History Mcg = 1000 Iu)] Memantine [Namenda] 5 mg PO DAILY 08/15/23 04/10/25 History Rosuvastatin Calcium 40 mg PO DAILY 08/15/23 04/10/25 History levETIRAcetam [Keppra] 500 mg PO Q12HR 30 Days #60 tab 08/20/23 04/10/25 Rx Aspirin EC [Ecotrin Low Dose] 81 mg PO DAILY 04/10/25 04/10/25 History Warfarin [Coumadin] 2.5 mg PO HS 04/10/25 04/10/25 History Allergies Allergy/AdvReac Type Severity Reaction Status Date / Time levofloxacin [From Levaquin] Allergy Leg Verified 04/10/25 13:44 Swelling Penicillins Allergy leg/feet Verified 04/10/25 13:44 swelling Surgical - Exam Vital Signs Temp Pulse Resp BP 96.8 F L 98 15 105/70 06/03/25 09:44 04/10/25 09:44 04/10/25 09:44 04/10/25 09:44 - General no distress, no pain - Respiratory normal expansion, normal respiratory effort Results - Labs 04/10/25 10:15 04/10/25 10:15 Abnormal Lab Results - Last 24 Hours (Table) 04/10/25 04/10/25 04/10/25 Range/Units 10:10 10:15 10:15 WBC 15.01 H (4.50-10.00) 10*3/uL RBC 4.33 L (4.40-5.60) 10*6/uL MCH 33.3 H (27.0-32.0) pg Immature Gran # 0.07 H (0.00-0.04) 10*3/uL Neutrophils # 12.97 H (1.80-7.70) 10*3/uL Lymphocytes # 0.87 L (0.90-5.00) 10*3/uL Carbon Dioxide 20 L (22-30) mmol/L BUN 30 H (9-20) mg/dL Albumin 3.4 L (3.5-5.0) g/dL Urine Protein 1+ H (Negative) Urine Blood Moderate H (Negative) Ur Leukocyte Esterase Large H (Negative) Urine RBC 63 H (0-5) /hpf Urine WBC >182 H (0-5) /hpf Urine WBC Clumps Few H (None) /hpf Urine Mucus Rare H (None) /hpf Diabetes panel 04/10/25 Range/Units 10:15 Sodium 139 (137-145) mmol/L Potassium 4.0 (3.5-5.1) mmol/L Chloride 107 (98-107) mmol/L Carbon Dioxide 20 L (22-30) mmol/L BUN 30 H (9-20) mg/dL Creatinine 1.21 (0.66-1.25) mg/dL Glucose 86 (74-99) mg/dL Calcium 8.9 (8.4-10.2) mg/dL AST 40 (17-59) U/L ALT 32 (4-49) U/L Alkaline Phosphatase 104 (38-126) U/L Total Protein 6.3 (6.3-8.2) g/dL Albumin 3.4 L (3.5-5.0) g/dL Calcium panel 04/10/25 Range/Units 10:15 Calcium 8.9 (8.4-10.2) mg/dL Albumin 3.4 L (3.5-5.0) g/dL Pituitary panel 04/10/25 Range/Units 10:15 Sodium 139 (137-145) mmol/L Potassium 4.0 (3.5-5.1) mmol/L Chloride 107 (98-107) mmol/L Carbon Dioxide 20 L (22-30) mmol/L BUN 30 H (9-20) mg/dL Creatinine 1.21 (0.66-1.25) mg/dL Glucose 86 (74-99) mg/dL Calcium 8.9 (8.4-10.2) mg/dL Adrenal panel 04/10/25 Range/Units 10:15 Sodium 139 (137-145) mmol/L Potassium 4.0 (3.5-5.1) mmol/L Chloride 107 (98-107) mmol/L Carbon Dioxide 20 L (22-30) mmol/L BUN 30 H (9-20) mg/dL Creatinine 1.21 (0.66-1.25) mg/dL Glucose 86 (74-99) mg/dL Calcium 8.9 (8.4-10.2) mg/dL Total Bilirubin 1.2 (0.2-1.3) mg/dL AST 40 (17-59) U/L ALT 32 (4-49) U/L Alkaline Phosphatase 104 (38-126) U/L Total Protein 6.3 (6.3-8.2) g/dL Albumin 3.4 L (3.5-5.0) g/dL Assessment and Plan Assessment: 84-year-old male with admitted to the hospital with altered mental status, history of high-grade T1 bladder cancer, scheduled for cystoscopy for tomorrow. UA shows possible UTI Follow-up on urine culture, recommend continue antibiotics until cultures finalized We will cancel cystoscopy for tomorrow and schedule for cystoscopy as an outpatient once he returns back to his baseline
[2025-04-10 17:49] LABS: INR 1.6 (<1.2); Partial Thromboplastin Time 29.3 sec (22.0-30.0); Prothrombin Time 16.6 sec (10.0-12.5)
[2025-04-10] MEDS ORDERED: WARFARIN 2.5 MG TAB PO SCH (23:15)
[2025-04-10] MEDS: levETIRAcetam 500 MG TAB PO SCH (23:45)
[2025-04-10] MEDS: WARFARIN 3 MG TAB PO ONE (23:45)
[2025-04-10] MEDS: levETIRAcetam IV 500 MG/5 ML VIAL IVP SCH (23:53)
[2025-04-11] MEDS: ATORVASTATIN 40 MG TAB PO SCH (08:00)
[2025-04-11] MEDS: CHOLECALCIFEROL 25 MCG (1000 IU) TABLET PO SCH (08:00)
[2025-04-11] MEDS: ASPIRIN 81 MG PO SCH (08:00)
[2025-04-11] MEDS: ASCORBIC ACID 500 MG TAB PO SCH (08:00)
[2025-04-11] MEDS: MEMANTINE 5 MG TAB PO SCH (08:01)
[2025-04-11] MEDS: DILTIAZEM CD 240 MG CAP.ER.24H PO SCH (08:01)
[2025-04-11 08:12] VITALS: BP 111/65; PULSE 84; RESP 17; TEMP 97.3
[2025-04-11] MEDS ORDERED: QUEtiapine 25 MG TAB PO PRN (11:19)
[2025-04-11 11:52] LABS: INR 1.4 (<1.2); Prothrombin Time 15.1 sec (10.0-12.5)
--- NOTE | 2025-04-11 14:59 | P.HPIM ---
History of Present Illness H&P Date: 04/11/25 Patient is a 84-year-old male with atrial fibrillation, dementia, hyperlipidemia, bladder cancer status post TURBT in September 2024, history of falls here for evaluation of altered mental status. Patient is a poor historian on admission and family provided majority of the history. Family reported that patient has been altered and more fatigued since Wednesday night. Could no longer ambulate on his own. Very lethargic but cooperative per family . He had no associated symptoms. He denied fever, chest pain, shortness of breath, nausea, vomiting, diarrhea, changes in urination, focal weakness, vision changes, dizziness, lightheadedness, recent trauma or fall. Had prior UTI years ago but no confusion. Baseline mentation per family mentioned that he is conversant, cooperative but does not remember names. Independent on most ADLS except driving and showering. Ambulates with a cane or walker. On admission: Vitals: 96.8 Fahrenheit, pulse rate 98, respiratory rate 15, blood pressure 105/70, O2 saturation 98% on room air Labs: WBC 15.01, hemoglobin 14.4, platelet count 1 41,000, sodium 139, potassium 4, bicarb 20, BUN 30, creatinine 1.21, glucose 86, lactic acid 1.4, calcium 8.9. Liver enzyme tests normal. Coagulation panel showed elevated PT at 16.6 and elevated INR at 4.6, PTT normal at 29.3. Urinalysis showed +1 proteins, moderate blood, large leukocyte esterase, negative nitrites, urine RBC 63, WBC greater than 182. UDS negative. Imaging: EKG showed atrial fibrillation with RVR with a rate of 111 bpm, left axis deviation, no ST-T changes, QTc 378 MS. ED documentation reviewed. Rocephin IVPB, Haldol IM, 1 L 0.9 normal saline bolus given in the ED. Review of systems: Pertinent positives and negatives as discussed in HPI, a complete review of systems was performed and all other systems are negative. Social history: Tobacco: denied history of use Alcohol: denied history of use Recreational drugs: denied history of use Travel: denied history of recent or prolonged travel Physical examination: Vital signs reviewed General: non toxic, no distress, appears at stated age, on room air Derm: no unusual rashes/lesions, warm Head: atraumatic, normocephalic, symmetric Eyes: EOMI, anicteric sclera, pupils equal round reactive to light ENT: Nose and ears atraumatic Neck: No cervical lymphadenopathy, trachea midline, supple Mouth: no lip lesion, mucus membranes moist Cardiovascular: S1S2 reg, no murmur Lungs: CTA bilateral, no rhonchi, no rales, no accessory muscle use Abdominal: soft, nondistended, nontender to palpation, no guarding Ext: muscle strength 5 out of 5 in all 4 extremities grossly, no gross muscle atrophy, no contractures, positive dorsalis pedis pulse bilateral, no edema Neuro: CN II-XI grossly intact, no gross focal neuro deficits Psych: Alert and oriented x 1, appropriate affect and mood Assessment/Plan: The patient is admitted with an anticipated greater than 2 midnight stay for evaluation of atrial fibrillation and acute encephalopathy Active: #. Acute metabolic encephalopathy secondary to complicated UTI, rule out other causes #. Bladder cancer status post TURBT Urinalysis showed +1 proteins, moderate blood, large leukocyte esterase, negative nitrites, urine RBC 63, WBC greater than 182 UDS negative IV Rocephin initiated in the ED. Continue with IV Rocephin IVPB every 24 hours Monitor UO and renal function Urine culture pending Patient has active high-grade T1 bladder cancer status post TURBT. Urology consulted #. Atrial fibrillation with RVR, controlled EKG showed atrial fibrillation with RVR with a rate of 111 bpm, left axis deviation, no ST-T changes, QTc 378 MS. Hemodynamically stable at this time Currently on home Cardizem 240 mg p.o. daily On home warfarin 2.5 mg p.o. daily #. Dementia - Continue with home Namenda 5 mg p.o. daily and Keppra 500 mg twice daily Chronic Conditions: #. Hyperlipidemia - Continue home rosuvastatin 40 mg p.o. daily DVT ppx: Warfarin 2.5 mg p.o. daily CODE STATUS: DNR Discussed with: Patient and Anticipated discharge place: Home Angela Marquez MD PGY-1 Internal Medicine Dictation was produced using [employer] dictation software. please excuse any gram matical, word or spelling errors. Attestation: I have seen and examined this patient with my resident, assessment and plan discussed with the resident, agree with assessment and plan as written above. Dr. Dubose Past Medical History Past Medical History: Atrial Fibrillation, Dementia, Hyperlipidemia, Memory Impairment Additional Past Medical History / Comment(s): bronchitis, falls History of Any Multi-Drug Resistant Organisms: None Reported Past Surgical History: Bladder Surgery, Hernia Repair Past Anesthesia/Blood Transfusion Reactions: No Reported Reaction Past Psychological History: No Psychological Hx Reported Smoking Status: Never smoker Past Alcohol Use History: None Reported Past Drug Use History: None Reported Medications and Allergies Home Medications Medication Instructions Recorded Confirmed Type Furosemide [Lasix] 20 mg PO TUTHSA 05/31/16 04/10/25 History Diltiazem Cd [Cardizem CD] 240 mg PO DAILY 12/13/22 04/10/25 History Ascorbic Acid [Vitamin C] 500 mg PO DAILY #30 tab 12/17/22 04/10/25 Rx Cholecalciferol [Vitamin D3 (25 25 mcg PO DAILY 08/15/23 04/10/25 History Mcg = 1000 Iu)] Memantine [Namenda] 5 mg PO DAILY 08/15/23 04/10/25 History Rosuvastatin Calcium 40 mg PO DAILY 08/15/23 04/10/25 History levETIRAcetam [Keppra] 500 mg PO Q12HR 30 Days #60 tab 08/20/23 04/10/25 Rx Aspirin EC [Ecotrin Low Dose] 81 mg PO DAILY 04/10/25 04/10/25 History Warfarin [Coumadin] 2.5 mg PO HS 04/10/25 04/10/25 History cefuroxime axetiL [Ceftin] 500 mg PO BID #8 tab 04/11/25 Rx Allergies Allergy/AdvReac Type Severity Reaction Status Date / Time levofloxacin [From Levaquin] Allergy Leg Verified 04/10/25 13:44 Swelling Penicillins Allergy leg/feet Verified 04/10/25 13:44 swelling Physical Exam Vitals: Vital Signs Temp Pulse Pulse Resp BP BP Pulse Ox 04/10/25 22:47 97.7 F 97 18 104/70 95 04/10/25 22:34 97 18 04/10/25 21:54 98.5 F 95 18 98/64 99 04/10/25 16:02 75 18 113/68 95 04/10/25 13:01 83 16 98 04/10/25 10:10 99.0 F 87 16 96/64 06/03/25 09:44 96.8 F L 98 15 105/70 Intake and Output 04/10/25 04/11/25 04/11/25 22:59 06:59 14:59 Other: Voiding Method Toilet # Voids 2 Weight 95.254 kg Results CBC & Chem 7: 04/10/25 10:15 04/10/25 10:15 Labs: Abnormal Lab Results - Last 24 Hours (Table) 04/10/25 04/10/25 04/10/25 Range/Units 10:10 10:15 10:15 WBC 15.01 H (4.50-10.00) 10*3/uL RBC 4.33 L (4.40-5.60) 10*6/uL MCH 33.3 H (27.0-32.0) pg Immature Gran # 0.07 H (0.00-0.04) 10*3/uL Neutrophils # 12.97 H (1.80-7.70) 10*3/uL Lymphocytes # 0.87 L (0.90-5.00) 10*3/uL PT (10.0-12.5) sec INR (<1.2) Carbon Dioxide 20 L (22-30) mmol/L BUN 30 H (9-20) mg/dL Albumin 3.4 L (3.5-5.0) g/dL Urine Protein 1+ H (Negative) Urine Blood Moderate H (Negative) Ur Leukocyte Esterase Large H (Negative) Urine RBC 63 H (0-5) /hpf Urine WBC >182 H (0-5) /hpf Urine WBC Clumps Few H (None) /hpf Urine Mucus Rare H (None) /hpf 04/10/25 Range/Units 16:58 WBC (4.50-10.00) 10*3/uL RBC (4.40-5.60) 10*6/uL MCH (27.0-32.0) pg Immature Gran # (0.00-0.04) 10*3/uL Neutrophils # (1.80-7.70) 10*3/uL Lymphocytes # (0.90-5.00) 10*3/uL PT 16.6 H (10.0-12.5) sec INR 1.6 H (<1.2) Carbon Dioxide (22-30) mmol/L BUN (9-20) mg/dL Albumin (3.5-5.0) g/dL Urine Protein (Negative) Urine Blood (Negative) Ur Leukocyte Esterase (Negative) Urine RBC (0-5) /hpf Urine WBC (0-5) /hpf Urine WBC Clumps (None) /hpf Urine Mucus (None) /hpf Thrombosis Risk Factor Assmnt - Choose All That Apply Any of the Below Risk Factors Present?: No Other Risk Factors: No Thrombosis Risk Factor Assessment Level: Very Low Risk
--- NOTE | 2025-04-11 15:06 | P.DS ---
Providers Date of admission: 04/10/25 13:18 Attending physician: Debbie Morales Consults: 04/10/25 13:13 Consult Physician Urgent Consulting Provider: Marcin Allen Consult Reason/Comments: Urinary tract infection, bladder cancer Do you want consulting provider notified?: Yes Primary care physician: Coty Rose Hospital Course: Hospital Course: Patient is a 84-year-old male with atrial fibrillation, dementia, hyperlipidemia, bladder cancer status post TURBT in September 2024, history of falls here for evaluation of altered mental status. Patient is a poor historian on admission and family provided majority of the history. Family reported that patient has been altered and more fatigued since Wednesday night. Could no longer ambulate on his own. Very lethargic but cooperative per family . He had no associated symptoms. He denied fever, chest pain, shortness of breath, nausea, vomiting, diarrhea, changes in urination, focal weakness, vision changes, dizziness, lightheadedness, recent trauma or fall. Had prior UTI years ago but no confusion. Baseline mentation per family mentioned that he is conversant, cooperative but does not remember names. Independent on most ADLS except driving and showering. Ambulates with a cane or walker. On admission: Vitals: 96.8 Fahrenheit, pulse rate 98, respiratory rate 15, blood pressure 105/70, O2 saturation 98% on room air Labs: WBC 15.01, hemoglobin 14.4, platelet count 1 41,000, sodium 139, potassium 4, bicarb 20, BUN 30, creatinine 1.21, glucose 86, lactic acid 1.4, calcium 8.9. Liver enzyme tests normal. Coagulation panel showed elevated PT at 16.6 and elevated INR at 4.6, PTT normal at 29.3. Urinalysis showed +1 proteins, moderate blood, large leukocyte esterase, negative nitrites, urine RBC 63, WBC greater than 182. UDS negative. Imaging: EKG showed atrial fibrillation with RVR with a rate of 111 bpm, left axis deviation, no ST-T changes, QTc 378 MS. Patient was admitted for the evaluation of acute metabolic encephalopathy se condary to complicated UTI and A-fib with RVR patient's. IV antibiotics ordered, urinalysis with urine culture ordered and pending. Urology was consulted due to him patient's history of bladder cancer. Mentation improved with ceftriaxone IVPB and has returned to baseline. Patient had no new complications or new symptoms on evaluation today. On discussion with his , they would prefer to go home. He is cleared for discharge and placed on Ceftin 500 mg p.o. twice daily for 4 more days. Follow-up on his urine cultures And his PCP on outpatient basis. Final Diagnosis: #. Acute metabolic encephalopathy secondary to UTI #. Bladder cancer status post TURBT #. Atrial fibrillation with RVR, controlled #. Dementia #. Hyperlipidemia Physical examination: Vital signs reviewed General: non toxic, no distress Derm: no unusual rashes/lesions, warm Head: atraumatic, normocephalic, symmetric Eyes: EOMI, anicteric sclera, pupils equal round reactive to light ENT: Nose and ears atraumatic Neck: No cervical lymphadenopathy, trachea midline, supple Mouth: no lip lesion, mucus membranes moist Cardiovascular: S1S2 reg, no murmur Lungs: CTA bilateral, no rhonchi, no rales, no accessory muscle use Abdominal: soft, nondistended, nontender to palpation, no guarding Ext: muscle strength 5 out of 5 in all 4 extremities grossly, no gross muscle atrophy, no contractures, positive dorsalis pedis pulse bilateral, no edema Neuro: CN II-XI grossly intact, no gross focal neuro deficits Psych: Alert, oriented to self only, cooperative, appropriate affect and mood Attestation: I have seen and examined this patient with my resident, assessment and plan discussed with the resident, agree with assessment and plan as written above. Dr. Dubose Patient Condition at Discharge: Stable Plan - Discharge Summary Discharge Rx Participant: No New Discharge Prescriptions: New cefuroxime axetiL [Ceftin] 500 mg PO BID #8 tab Continue Furosemide [Lasix] 20 mg PO TUTHSA Diltiazem Cd [Cardizem CD] 240 mg PO DAILY Rosuvastatin Calcium 40 mg PO DAILY levETIRAcetam [Keppra] 500 mg PO Q12HR 30 Days #60 tab Aspirin EC [Ecotrin Low Dose] 81 mg PO DAILY Warfarin [Coumadin] 2.5 mg PO HS Ascorbic Acid [Vitamin C] 500 mg PO DAILY #30 tab Cholecalciferol [Vitamin D3 (25 Mcg = 1000 Iu)] 25 mcg PO DAILY Memantine [Namenda] 5 mg PO DAILY Discharge Medication List Furosemide [Lasix] 20 mg PO TUTHSA 05/31/16 [History] Diltiazem Cd [Cardizem CD] 240 mg PO DAILY 12/13/22 [History] Ascorbic Acid [Vitamin C] 500 mg PO DAILY #30 tab 12/17/22 [Rx] Cholecalciferol [Vitamin D3 (25 Mcg = 1000 Iu)] 25 mcg PO DAILY 08/15/23 [History] Memantine [Namenda] 5 mg PO DAILY 08/15/23 [History] Rosuvastatin Calcium 40 mg PO DAILY 08/15/23 [History] levETIRAcetam [Keppra] 500 mg PO Q12HR 30 Days #60 tab 08/20/23 [Rx] Aspirin EC [Ecotrin Low Dose] 81 mg PO DAILY 04/10/25 [History] Warfarin [Coumadin] 2.5 mg PO HS 04/10/25 [History] cefuroxime axetiL [Ceftin] 500 mg PO BID #8 tab 04/11/25 [Rx] Follow up Appointment(s)/Referral(s): Coty Rose MD [Primary Care Provider] - 04/13/25 10:40 am Patient Instructions/Handouts: A-fib (Atrial Fibrillation) (DC), Urinary Tract Infection in Men (DC) Discharge Disposition: HOME SELF-CARE
[2025-04-11] MEDS ORDERED: WARFARIN 3 MG TAB PO ONE (18:00)
== END 2025-04-11 14:21 | disposition home or self-care (01) ==
LOC: EC 09:39 → INTOOBSV 13:18 → 4SSUR 13:18 → OBSVTOIN 13:18 → 4SSUR 15:36
PROVIDERS: ADMIT Hospitalist; ATTEND Hospitalist
DX: N39.0 Urinary tract infection, site not specified (principal); G93.41 Metabolic encephalopathy; F03.90 Unspecified dementia, unspecified severity, without behavioral disturbance, psychotic disturbance, mood disturbance, and anxiety; I48.91 Unspecified atrial fibrillation; E78.5 Hyperlipidemia, unspecified; Z66 Do not resuscitate; Z79.01 Long term (current) use of anticoagulants; Z79.82 Long term (current) use of aspirin; Z79.899 Other long term (current) drug therapy; Z85.51 Personal history of malignant neoplasm of bladder; Z87.440 Personal history of urinary (tract) infections; Z91.81 History of falling; Z88.1 Allergy status to other antibiotic agents; Z88.0 Allergy status to penicillin
CPT/HCPCS: 96376; 96374; 99285; 36415; 93005; 80053; 80173; 83605; 85025; 85610 ×2; 85730; 81001; 87040; 80306; 87077; 87186; 71046; G0378 ×2; J0696 ×2